=== PATIENT | male | born 1990 | race African-American/Black ===

== ENCOUNTER 2016-12-03 20:25 | Inpatient (IN) | payer OTHER, MEDICAID ==
[~2016-12-03] VITALS: Ht 180.3 cm; Wt 82.1 kg
[~2016-12-03 20:25] MED LIST: DOXY100T2 PO; FOLI1TAB18 PO; HYDR500C2 PO; IBUP-1827 PO; MUPI22OI2 NASAL; OXYC20TA4 PO
[2016-12-03 21:04] VITALS: BP 128/77; PULSE 102; RESP 18; O2SAT 98
[2016-12-03] MEDS ORDERED: Alum-Mag Hydrox-Simeth 30 mL Suspension PO PRN (21:40)
[2016-12-03] MEDS ORDERED: Polyethylene Glycol (PEG) 17 Gm Powder PO PRN (21:40)
[2016-12-03] MEDS ORDERED: HYDROmorphone 1 mg/mL Inj IVPUSH PRN (21:40)
[2016-12-03] MEDS ORDERED: Ondansetron 2 mg/mL 2 mL Inj IVPUSH PRN (21:40)
[2016-12-03] MEDS: HYDROmorphone PCA 0.2 mg/mL 30 mL Inj IV PRN (22:20)
[2016-12-03] MEDS: 0.9% Sodium Chloride 1,000 ML IV SCH (22:24)
--- NOTE | 2016-12-03 22:24 | PCM.HPMED ---
Subjective Date of Service Dec 03, 2016 Primary Provider: Admitting Physician: Jorge L Baca MD Primary Care Physician: Shyla Attending Physician: Jorge L Baca MD Chief Complaint: Bilaterally leg pain History of Present Illness: 26-year-old male with a history of sickle cell anemia and polysubstance abuse including IV drug abuse presented to [facility] emergency department due to ongoing bilateral upper leg pain and left foot numbness for the last 2-3 days. He states that the numbness began shortly after the upper leg pain, and he soon developed lower leg pain bilaterally with cyanosis of his toes bilaterally. Patient did not try to treat his pain at home. He states that he was recently using methamphetamines prior to the pain, however, he is unable to identify exactly when he last used. He states that he no longer uses IV heroin. Patient has history of multiple admissions to both [facility] and [facility] with his last admission at [facility] in August 2016 for sickle cell crisis. At this time the patient endorses abdominal pain, specifically in the left upper quadrant, but also diffusely on palpation; denies any chest pain, cough, chills , nausea, vomiting, fever, diarrhea, hematemesis, hematochezia, headache, blurry vision, or other neurological symptoms except as already discussed. Patient states that he was supposed to have a splenectomy some time ago but has never had the procedure. Patient states that on prior admissions he has been given Dilaudid and Benadryl to control the pain. [place] [facility] [place] was given 2 L of normal saline, Dilaudid 5 mg, morphine IV 4 mg. Labs obtained at [facility] show white count of 9.3, hemoglobin of 9.0, hematocrit 24.5, platelets of 294, 61% neutrophils, reticulocyte count of 205, with a 41% immature reticular fraction. CMP reveals a sodium of 142, potassium of 3.8, chloride of 107, bicarbonate of 30, BUNs of 6, creatinine of 0.83, elevated AST at 42, a LT normal at 37, glucose of 158. Lactic was drawn but not reported Review of Systems: Complete review of systems performed. Pertinent positives and negatives per history of present illness. All other systems reviewed and are negative Allergies Coded Allergies: No Known Allergies (Unverified , 12/03/16) Home Medications Taken from transfer file from [facility]: Hydroxyurea 500 mg capsule twice a day Ibuprofen 600 mg every 6 Oxycodone 5 mg immediate release tablet: 30 mg by mouth every 4 as needed for pain PMH 1. Sickle cell anemia. 2. Polysubstance abuse including methamphetamines, cocaine, and historically heroin. 3. ADHD. 4. Chronic lower back pain. Surgical History Finger amputation Retinal detachment surgery Family History Patient is adopted Social History Hx Alcohol Use: Yes Hx Substance Use: Yes (tox screen positive for meth/cocaine) Hx Tobacco Use: Yes Smoking Status: Current Every Day Smoker (1 ppd for 10 years), Never Smoker Living Arrangement: with Family Exam Vital Signs Vital Sign - Last Date Time Temp Pulse Resp B/P Pulse Ox O2 Delivery O2 Flow Rate FiO2 12/03/16 21:04 37.3 102 18 128/77 98 Nasal Cannula 2.00 Exam General: Mild to moderate distress, having difficulty focusing but able to carry on conversation HEENT: Mild icterus sclera, PERRLA, EOMI, neck is supple Cardio: tachycardic around 120 bpm, no murmurs rubs or gallops noted Respiratory: Clear to auscultation bilaterally no wheezes rhonchi or crackles Abdomen: Diffuse abdominal tenderness worse in the left upper quadrant with notable splenomegaly to the midline; positive bowel sounds; guarding noted; no rebound tenderness noted Extremities: Toes are mildly cyanotic; numerous small ulcers bilaterally with right mildly greater than left; sensation decreased on the right plantar surface , no numbness noted on the left plantar surface; patient missing his right ring finger post amputation Neuro: Numbness on the right plantar surface greater than left plantar surface, sensation intact everywhere else, cranial nerves II through XII are intact, reflexes not elicited, Babinski negative Psych: Patient is notably anxious Skin: numerous tattoos, and ulcerations on the lower extremities, do not appear to deep and are mostly healed Lab and Diagnostics Labs As noted in history of present illness Assessment & Plan 26-year-old with repeated sickle cell crisis with frequent presentation to [facility] for treatment. Patient presents now with new bilateral lower extremity pain and some numbness with cyanosis of his toes. #1 acute sickle cell crisis; present on admission; ongoing -Patient presents with bilateral lower extremity pain consistent with prior episodes of sickle cell crisis; no evidence of acute chest syndrome; cyanosis is noted bilaterally in toes -Nothing to suggest ongoing infection; event seems to have started with the use of methamphetamine -Patient already received 2 L normal saline boluses at [facility], as well as 5 mg of Dilaudid, and 4 mg of morphine, patient continues to have pain -Patient has history of IV drug abuse including heroin and is not opioid antoinette; recent use of methamphetamine and marijuana but denies cocaine -2 L normal saline bolus on arrival to [facility] -We will continue normal saline at 125 mL per hour -Dilaudid 1-2 mg every 30 minutes until pain is controlled; once controlled will transfer patient to Dilaudid SOLUTION CONSULTANT -Benadryl 25 mg IV once -We will continue to follow CBC and CMP as well as a pro-calcitonin, lactic acid , LDH -CXR #2 acute encephalopathy, present on admission; ongoing -Patient has severe agitation from the pain he is experiencing -If agitation is not solved by increased opioid administration will consider using Ativan or Haldol #3 chronic 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; present on admission; ongoing -Patient has chronic history of splenomegaly from his sickle cell with reports of possible resection in the future -Seems to be stable at home, however his spleen is grossly enlarged to the midline and 3 cm above the umbilicus -There is no thrombocytopenia on admission, we will continue to follow #4 bilateral feet numbness present on admission; ongoing -Likely secondary to acute occlusive vascular disease due to sickle cell crisis , patient's toes are also cyanotic -No other neurological symptoms to suggest stroke, with Babinski negative, patient moving all extremities -We will continue to monitor, if additional neurological symptoms develop we will consider CT or MRI of the brain -Also suggest on discharge of the patient be given a prescription for alpha lipoic acid to take daily at home Disposition: Patient is being admitted to general medical floor with expected length of stay greater than to minimize due to severity of presentation, duration of treatment, risk of adverse effects Pain Evaluation: Pain not Controlled GI Prophylaxis: H2 rashel Resuscitation Status: CPR: Attempt Resuscitation Attending Statement The patient was seen and examined together with Dr. Pace on 12/03/16 and I agree with the history, exam and plan as outlined in the note above. Eric Pace DO Dec 03, 2016 22:24 Jorge L Baca MD Dec 03, 2016 23:58
[2016-12-03 22:36] VITALS: RESP 16
[2016-12-03 23:46] LABS: APPEARANCE,URINE CLEAR (CLEAR,HAZY); COLOR,URINE YELLOW (YELLOW); OCCULT BLOOD,URINE NEGATIVE (NEGATIVE)
[2016-12-03 23:47] LABS: UROBILINOGEN,URINE NORMAL (NORMAL)
[2016-12-04] VITALS (7 sets, daily range): BP systolic 125–142; BP diastolic 75–90; PULSE 92–114; RESP 18–20; O2SAT 93–98
--- NOTE | 2016-12-04 | NUR ---
Admit note: Pt alert and oriented x3, difficulty holding attentions and following a conversation without nodding off to sleep. Pain reported at a 10/10 to feet and legs. Toes discolored bilateral, with right toes greater than left. Fluid bolus' ordered, IV fluid and COLLATERAL CLERK for pain control. Oriented to room and call light.
[2016-12-04] MEDS: 0.9% Sodium Chloride 1,000 ML IV SCH ×5 (00:06→20:42)
[2016-12-04 05:43] LABS: BASOPHILS % (AUTO) 0.5 % (0-3); EOSINOPHILS % (AUTO) 7.9 % (0-5); MONOCYTES % (AUTO) 16.8 % (4-12); Mean Corpuscular Hemoglobin 29.2 pg (27.0-35.0); Mean Corpuscular Volume 83.3 fL (81-100); Platelet Count 329 bil/L (150-400)
[2016-12-04 05:53] LABS: TROPONIN T 0.01 ug/L (0.0-0.011)
--- NOTE | 2016-12-04 09:33 | DRSVH ---
PROCEDURE: X-RAY CHEST ONE VIEW, PORTABLE ([id number]) INDICATIONS: sickle cell TECHNIQUE: One view of the chest was acquired. COMPARISON: [facility], CR, XR CHEST 1VW (PORTABLE), 09/08/2016, 5:26. FINDINGS: Surgical changes and devices: None. Lungs and pleura: No pleural effusions or pneumothorax. Lung volumes are low and air space opacity involves the peripheral right lung base. Mediastinum: Mediastinal contours appear normal. Heart size is normal. Bones and chest wall: No suspicious bony lesions. Overlying soft tissues appear unremarkable. IMPRESSION: Right basilar atelectasis versus aspiration or pneumonia. Correlate clinically. Dictated by: Navid BOWMAN Interpreted: Emily Ray MD on 12/04/2016 at 9:33 Transcribed by: SERGIO on 12/04/2016 at 9:33 Approved by: Emily Ray M.D. on 12/04/2016 at 13:37
[2016-12-04] MEDS ORDERED: diphenhydrAMINE 25 mg Capsule PO PRN (10:40)
--- NOTE | 2016-12-04 15:24 | NUR ---
Social Work: Attempt CD Assessment Data & Assessment: EMR Reviewed. Chief Station Engineer met with patient at bedside and started CD assessment. Patient agreed to completing the assessment, but after the first question patient was in and out of sleep and not answering questions. Patient reported that he uses heroin. SW will attempt to complete CD assessment tomorrow. SW will continue to follow. \ Plan: SW will attempt to complete CD Assessment tomorrow. SW will continue to follow. Phyllis Mayo LMSW, KIM
[2016-12-04] MEDS: HYDROmorphone PCA 0.2 mg/mL 30 mL Inj IV PRN (15:42)
--- NOTE | 2016-12-04 17:35 | NUR ---
Fever Patient had a 38.6 fever at 1441. Notified and he ordered 650mg Tylenol. Gave Tylenol at 1507. Addendum: 12/04/16 at 1737 by SANDRA ALMAGUER RN Rechecked temp at 1723 - 38.0
--- NOTE | 2016-12-04 18:28 | PCM.PNMED ---
Subjective Date of Service Dec 04, 2016 Subjective Patient report pain over his bony legs today. Requests to increase hydromorphone and Benadryl IV. Benadryl oral does not work. Exam Vital Signs Vital Sign - Last Date Time Temp Pulse Resp B/P Pulse Ox O2 Delivery O2 Flow Rate FiO2 12/04/16 14:41 38.6 92 18 125/80 94 Room Air 12/03/16 21:04 2.00 Intake and Output 12/03/16 12/03/16 12/04/16 Cumulative From/Thru 15:00 23:00 07:00 12/03/16 21:04 - 12/04/16 06:12 Intake Total 3242 ml 3242 ml Output Total 1375 ml 1375 ml Balance 1867 ml 1867 ml Intake Oral 1318 ml 1318 ml IV Total 1924 ml 1924 ml Output Urine Total 1375 ml 1375 ml # Bowel Movements 2 2 Exam Gen: Drowsy and in pain HEENT: PERRLA. Sclerae anicteric, moist conjunctivae, and no lid lag. Neck: Supple, no JVD Cardio: Tachycardic, regular rate and rhythm, no murmur rub or gallop Pulm: Bilateral air sound, no wheezes, crackles, or rhonchi Abd: Positive bowel sounds, soft, nontender, splenomegaly Extremities: No clubbing, cyanosis, edema, or lymphadenopathy appreciated. Skin: Normal temperature, turgor, and texture; no rash, ulcers, or subcutaneous nodules appreciated. Neuro: Cranial nerves grossly intact. Normal muscle strength, tone, and bulk. Reflexes, coordination, and sensory function within normal limits. No known gait impairment. Psyc: Normal mood and affect. Alert and oriented to person, place, and time. IVs and Medications IV Fluids NS 150cc/h Medications Reviewed: Medications were reviewed in detail Lab and Diagnostics Result Diagram: 12/04/1650912/04/16509 Assessment & Plan 26-year-old with repeated sickle cell crisis with frequent presentation to [facility] for treatment. Patient presents now with new bilateral lower extremity pain and some numbness with cyanosis of his toes. High fever, not present on admission, active - Possible bacteremia in the setting of enlarged spleen. - Ordered blood culture, viral Respiratory PCR, and procalcitonin. - Started broadspec ceftriaxone to over encapsulated bacteria. Acute sickle cell crisis; present on admission; ongoing - Had multiple admission for sickle cells crisis in the past. [place] [facility] - Inciting factor likely habitual methamphetamine use. Difficult to start IVs. - No symptoms of worsening anemia, renal insufficiency, or respiratory distress. Cont to monitor - Hydration with NS 150cc/h - Pain control: Hydromorphone AUTOMATIC PATTERN EDGER. Hydromorphone 1-2mg IV push Q2h PRN for breakthrough. Benadryl 25mg Q6h to augment pain meds. Sickle cell anemia, present on admission, active - Initial presentation Hgb/Hct 8.9/25.4, RDW 16.8, and hyperbilirubinemic. Normal platelets counts though. - Will transfuse of Hgb <6.0 and consider hydroxyurea. Acute encephalopathy, present on admission; ongoing - Patient has severe agitation from the pain he is experiencing - If agitation is not solved by increased opioid administration will consider using Ativan or Haldol Hepatitis C, present on admission, on going. - Uncertain of source. Though possible 2nd to IV drug use, past blood transfusion - No geotype on records - Will need to be follow-up outpatient. Polydrug abuse, present on admission, active - Past hx of heroin abuse, tested positive for amphetamines on this admission - Patient had displayed drug seeking behavior. Pain management strategy will be conservative. - Social work referral. Bilateral feet numbness present on admission; ongoing - Presentation likely secondary to acute occlusive vascular disease due to sickle cell crisis. Patient's toes are also cyanotic - No other neurological symptoms to suggest stroke, with Babinski negative, patient moving all extremities - Will CT or MRI of the brain with neurologic changes. - Consider adding gabapentin, Alpha lipoic acid, and vitamin D out patient for neuropathic pain Chronic 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; present on admission; ongoing - Patient has chronic history of splenomegaly from his sickle cell with reports of possible resection in the future - Seems to be stable at home, however his spleen is grossly enlarged to the midline and 3 cm above the umbilicus - There is no thrombocytopenia on admission, we will continue to follow Acetaminophen PRN for fever Antiemetics PRN Bowel regiment PRN Disposition: Patient will likely be here for 2-3 days pending the resolution of sickle cell crisis. We will continue to hydrate and treat underlying pain. GI Prophylaxis: H2 rashel VTE Prophylaxis: Sub-Q Heparin (Unfractionated) (SCD are hypercoag. ) Resuscitation Status: CPR: Attempt Resuscitation Time spent 25 minutes Attending Statement I have seen and evaluated patient at bedside and directly supervised in the care provided by resident physician. I agree with above documentation. Jeremy Zaragoza DO Dec 04, 2016 18:28 Arnoldo Flores DO Dec 05, 2016 13:37
[2016-12-04] MEDS ORDERED: cefTRIAXone Inj 2,000 MG in IV Premix 1 EACH IV SCH (18:30)
[2016-12-04] MEDS: HYDROmorphone 1 mg/mL Inj IVPUSH PRN (20:33)
[2016-12-04] MEDS: Heparin 5,000 Unit/mL Inj SUBQ SCH (23:48)
[2016-12-04] MEDS: cefTRIAXone Inj 2,000 MG in Dextrose 5% Minibag Plus 50 ML IV SCH (23:59)
[2016-12-05] VITALS (7 sets, daily range): BP systolic 121–145; BP diastolic 78–92; PULSE 106–118; RESP 16–20; O2SAT 93–98
[2016-12-05] MEDS: HYDROmorphone 1 mg/mL Inj IVPUSH PRN ×6 (02:14→19:55)
--- NOTE | 2016-12-05 03:32 | NUR ---
Pain, Cold sx: Pt only used 7 doses of CONSTRUCTION PROJECT MANAGER Dilaudid the first 5-6 hours of the shift for leg/foot pain, equaling 1.4 mgs. Requesting IV Benadryl and IV Dilaudid for breakthrough pain. Pt has been able to sleep for short periods of time, wakes up with nasal congestion, blowing nose, stating he has a cold. When awake, he requests additional meds but is sleeping sound again before staff leaves the room.
[2016-12-05] MEDS: 0.9% Sodium Chloride 1,000 ML IV SCH ×4 (03:47→22:50)
[2016-12-05] MEDS: HYDROmorphone PCA 0.2 mg/mL 30 mL Inj IV PRN ×2 (06:32→18:18)
[2016-12-05 07:34] LABS: Mean Corpuscular Hemoglobin 29.3 pg (27.0-35.0); Mean Corpuscular Volume 83.4 fL (81-100); Platelet Count 372 bil/L (150-400)
[2016-12-05 08:09] LABS: BASOPHILS % (AUTO) 1 % (0-3); EOSINOPHILS % (AUTO) 6 % (0-5); MONOCYTES % (AUTO) 12 % (4-12); NEUTROPHILS % (AUTO) 54 % (40-74)
[2016-12-05] MEDS: Heparin 5,000 Unit/mL Inj SUBQ SCH ×2 (08:58→16:41)
--- NOTE | 2016-12-05 13:30 | NUR ---
Pain Pt requesting "dose of pain medication for breakthru pain. Pain level 6-7/10 on pain scale, pt is conversing with female friend in rm. No obvious signs of distress. BRANCH EMPLOYMENT COORDINATOR activity in previous hour > requests = 3, denied = 0, partial = 0. 0.3 mg bolus given via BRANCH EMPLOYMENT COORDINATOR. Pt sts "I want a dose of pain medication for breakthrough pain" This RN educated pt regarding BRANCH EMPLOYMENT COORDINATOR use with the additional bolus option. Pt sts "If the doctor ordered it, then I want it" 1 mg of Dilaudid given as ordered and pt request. Will continue to monitor, call light with in reach.
--- NOTE | 2016-12-05 14:24 | PCM.PNMED ---
Subjective Date of Service Dec 05, 2016 Subjective Overnight, patient consistently requests for hydromorphone Q2H for breakthrough pain, rather then using the COMMUNITY ASSOCIATION MANAGER. Today, he spike temperature of 38.5C, tachycardic. Though, pt has hx of tachycardia. Pyrexia was noted yesterday afternoon as well. Blood cultures and antibiotics were initiated. Patient complaints of severe pain, chest and legs. Legs hurts more than chest. Leg pain R> L. A continuous "charley horse". At the same time, he states numbness b/l lower extremities. Patient reports walking to bathroom without family and divorce legal assistant. He favors the Left food due to right foot pain. Patient denies any exertional CP or SOB. Exam Vital Signs Vital Sign - Last Date Time Temp Pulse Resp B/P Pulse Ox O2 Delivery O2 Flow Rate FiO2 12/05/16 10:29 37.8 109 20 121/78 96 Room Air 12/03/16 21:04 2.00 Intake and Output 12/04/16 12/04/16 12/05/16 Cumulative From/Thru 15:00 23:00 07:00 12/03/16 21:04 - 12/05/16 06:35 Intake Total 4247 ml 4159 ml 37847 ml Output Total 2750 ml 3050 ml 7175 ml Balance 1497 ml 1109 ml 4473 ml Intake Oral 2800 ml 2636 ml 6754 ml IV Total 1447 ml 1523 ml 4894 ml Output Urine Total 2750 ml 3050 ml 7175 ml # Bowel Movements 2 Exam Gen: Resting comfortably. HEENT: PERRLA. Sclerae icteric, moist conjunctivae, and no lid lag. Neck: Supple, no JVD Cardio: Tachycardic, regular rate and rhythm, no murmur rub or gallop Pulm: Bilateral air sound, no wheezes, crackles, or rhonchi Abd: Positive bowel sounds, soft, nontender, splenomegaly Extremities: No clubbing, cyanosis, edema, or lymphadenopathy appreciated. capillary refill <2sec b/l foot, +2 b/l pedal pulses. Skin: Normal temperature, bollae right toes. mild erythema. Neuro: Cranial nerves grossly intact. Normal muscle strength, tone, and bulk. Reflexes, coordination, and sensory function within normal limits. No known gait impairment. Psyc: Normal mood and affect. Alert and oriented to person, place, and time. Right 4th finger missing. IVs and Medications Medications Reviewed: Medications were reviewed in detail Lab and Diagnostics Result Diagram: 12/05/1664712/05/16647 Assessment & Plan 26-year-old with repeated sickle cell crisis with frequent presentation to [facility] for treatment. Patient presents now with new bilateral lower extremity pain and some numbness with cyanosis of his toes. High fever, not present on admission, active - Possible bacteremia in the setting of enlarged spleen. - Ordered blood culture, viral Respiratory PCR, and procalcitonin. - Started broadspec ceftriaxone to over encapsulated bacteria. - Consult ID Dr. [email or web address] for further evaluation. Difficult to determine whether fever is infectious related. Acute sickle cell crisis; present on admission; ongoing - Had multiple admission for sickle cells crisis in the past. A transfer patient from [facility] [place]. - Inciting factor likely habitual methamphetamine use. Difficult to start IVs. - No symptoms of worsening anemia, renal insufficiency, or respiratory distress. Cont to monitor - Hydration with NS 150cc/h - Pain control: Hydromorphone COMMUNITY ASSOCIATION MANAGER. Hydromorphone 1-2mg IV push Q4h PRN for breakthrough. Benadryl 25-50mg Q6h to augment pain meds. Sickle cell anemia, present on admission, active - Initial presentation Hgb/Hct 8.9/25.4, RDW 16.8, and hyperbilirubinemic. Normal platelets counts though. - Will transfuse of Hgb <6.0 and consider hydroxyurea. Acute encephalopathy, present on admission; ongoing - Patient has severe agitation from the pain he is experiencing - If agitation is not solved by increased opioid administration will consider using Ativan or Haldol Hepatitis C, Genotype 1a, present on admission, on going. - Uncertain of source. Though possible 2nd to IV drug use, past blood transfusion - Will need to be follow-up outpatient. Polydrug abuse, present on admission, active - Past hx of heroin abuse, tested positive for amphetamines on this admission - Patient had displayed drug seeking behavior. Pain management strategy will be conservative. - Social work referral. Bilateral feet numbness present on admission; ongoing - Presentation likely secondary to acute occlusive vascular disease due to sickle cell crisis. Patient's toes are also cyanotic - No other neurological symptoms to suggest stroke, with Babinski negative, patient moving all extremities - Will CT or MRI of the brain with neurologic changes. - Consider adding gabapentin, Alpha lipoic acid, and vitamin D out patient for neuropathic pain Chronic 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; present on admission; ongoing - Patient has chronic history of splenomegaly from his sickle cell with reports of possible resection in the future - Seems to be stable at home, however his spleen is grossly enlarged to the midline and 3 cm above the umbilicus - There is no thrombocytopenia on admission, we will continue to follow Acetaminophen PRN for fever Antiemetics PRN Bowel regiment PRN Disposition: Patient will likely be here for 1-2 days pending the resolution of sickle cell crisis. We will continue to hydrate and treat underlying pain. GI Prophylaxis: H2 rashel VTE Prophylaxis: Sub-Q Heparin (Unfractionated) (SCD are hypercoag. ) Resuscitation Status: CPR: Attempt Resuscitation Time spent 25 minutes Attending Statement I have seen and evaluated patient at bedside in addition to directly supervising care provided by resident physician. I agree with above documentation. Jeremy Zaragoza DO Dec 05, 2016 14:24 Arnoldo Flores DO Dec 06, 2016 08:07
--- NOTE | 2016-12-05 18:00 | NUR ---
Febrile GENERAL FOREMAN informed this RN of fever 101(+). MD aware, Tylenol given. Recheck of temp 98.8 F.
--- NOTE | 2016-12-05 18:18 | CONS ---
[address] [address] CONSULTATION REPORT PATIENT: MAYE MENDEZ : 1990 MR#: [id number] ADMIT: 12/03/2016 JOB ID: [id number] DATE OF SERVICE: 12/05/[address] Zaragoza for this timely consult. REASON FOR CONSULTATION: Sickle cell crisis with fever. HISTORY OF PRESENT ILLNESS: The patient is a 26-year-old gentleman known to me from an earlier admission who has sickle cell and was admitted to this hospital two days ago on December 03 complaining of leg and foot pain and numbness for a couple weeks. He states that the foot numbness is worse on the left but now involves both feet and the combination of the numbness and pain in the feet and legs has left him basically unable to walk secondary to pain. Unlike prior admissions, the patient has no significant pulmonary or GI symptoms at this time though we did have a bit of pain in the left upper quadrant, he reported to the emergency department physicians, but today basically states that all his symptoms are confined to the legs and feet bilaterally. He notes that he has had fevers though no chills or sweats. He denies specifically any sore throat, cough, shortness of breath or chest pain. No significant nausea, vomiting or diarrhea is noted. PAST MEDICAL HISTORY: 1. Sickle cell anemia with multiple admissions. 2. Polysubstance abuse including sometimes injection of heroin as well as methamphetamine and cocaine. He reports today he has not injected in a long time though it is hard to quantitate what that means. 3. ADHD. 4. Chronic back pain. HOME MEDICATIONS: Hydroxyurea as well as nonsteroidals and oxycodone. SOCIAL HISTORY: The patient denies drinking alcohol today. He said he is an every day smoker who is currently living with his family in the [facility]. He states he has not used any intravenous narcotics or other drugs for a long period. FAMILY HISTORY: This patient is adopted so we do not have a good family history. REVIEW OF SYSTEMS: At this point, the patient states he is having no headache and denies any visual complaints. He is having no sores in the mouth or trouble swallowing. No stiff neck. No cough, shortness of breath or any chest pain. He has no symptoms at all in his upper extremities. No nausea, vomiting, diarrhea, or dysuria. No pelvic pain or symptoms. He notes that the pain in the toes bilaterally has been very severe and has been associated with a simultaneous occurrence of both pain and numbness in the feet. He states that when his feet are grabbed or examined he feels essentially nothing and that this all started just within the past few days. This feeling also extends to some degree further upper into the legs bilaterally. He does not have any of the more typical bone type pain in his lower or upper extremities nor in his back. No nausea, vomiting or diarrhea. No dysuria, urgency, or frequency and no skin rashes noted. LABORATORIES: Include white count 11,100, hematocrit 27, platelet count 372,000, differential white blood count is unremarkable. He does have 6% eosinophils, however. Creatinine is 0.84. LFTs basically normal except for bilirubin 1.4, slightly elevated. Albumin 3.3. Procalcitonin is 0 on the first measurement. Urinalysis with 0-5 white cells. Methamphetamine screen is positive. No current serologies though when he was here in August we had negative HIV and a hepatitis C which was positive for genotype 1A with viral load 3000. Micro studies include negative blood cultures from May and August, a nasal screen is positive for MRSA and that was back in August. Herpes culture of the lip was negative in August. More recently, we have negative blood cultures from yesterday, the , and respiratory viral PCR panel which was negative from yesterday. A MRSA screen is pending. X-rays include a chest x-ray done yesterday which shows right basilar atelectasis versus aspiration or pneumonia. This was reviewed on the view screen and it is a fairly subtle finding. IMPRESSION: This unfortunate gentleman presents once again with a sickle cell crisis. This one is a bit different from his prior crises as it seems to involve primarily his toes on both feet and sounds almost like more of an acute neuropathy than typical sickle cell crisis. He also has some pain in the soft tissues of the legs bilaterally. There is no upper extremity or back joint involvement by his report and no overt pulmonary, gastrointestinal or genitourinary symptoms. His fevers have been as high as 38.6 since admission and this, of course, demands are attention though it is possible these fevers are strictly due to sickle cell in and of itself. The source of the fever could be secondary to underlying sickle cell itself though the possibility of an occult bacteremia exists as well. The patient's chest x-ray does not look as if he has any significant underlying pulmonary infection. RECOMMENDATIONS: 1. Even without a focal source of infection, I agree with the plan to start the patient on ceftriaxone. 2. We await the blood cultures which are pending in this case. 3. Will await the MRSA screen which is also pending in this case. 4. Will continue to closely follow the patient with you but, at this time, I see no indication to broaden or switch the ceftriaxone therapy while we await additional microbiologic and clinical data.
[2016-12-05] MEDS: cefTRIAXone Inj 2,000 MG in Dextrose 5% Minibag Plus 50 ML IV SCH (22:50)
[2016-12-06] VITALS (7 sets, daily range): BP systolic 126–142; BP diastolic 69–83; PULSE 108–114; RESP 16–19; O2SAT 92–97
[2016-12-06] MEDS: Heparin 5,000 Unit/mL Inj SUBQ SCH ×3 (01:15→17:30)
[2016-12-06] MEDS: HYDROmorphone 1 mg/mL Inj IVPUSH PRN ×6 (01:16→23:31)
--- NOTE | 2016-12-06 04:24 | NUR ---
Pain: Pt is using the CANE FLUME CHUTE OPERATOR slightly more tonight; as at times the night before was only pressing it once an hour. IV Dilaudid ordered every 4 hours, has received it twice thus far this shift. One CANE FLUME CHUTE OPERATOR bolus administered when pt requested breakthrough medication and it was not time. Also receiving IV Benadryl every 6 hours as requested. Pt has been able to sleep a fair amount of time tonight.
[2016-12-06] MEDS: 0.9% Sodium Chloride 1,000 ML IV SCH ×2 (05:03→19:54)
[2016-12-06] MEDS: HYDROmorphone PCA 0.2 mg/mL 30 mL Inj IV PRN ×2 (06:32→15:31)
[2016-12-06 07:03] LABS: BASOPHILS % (AUTO) 0.6 % (0-3); EOSINOPHILS % (AUTO) 7.2 % (0-5); MONOCYTES % (AUTO) 20.7 % (4-12); Mean Corpuscular Hemoglobin 29.2 pg (27.0-35.0); Mean Corpuscular Volume 82.2 fL (81-100); NEUTROPHILS % (AUTO) 44.5 % (40-74); Platelet Count 395 bil/L (150-400)
--- NOTE | 2016-12-06 10:50 | PROG NOTE ---
[address] [address] PROGRESS NOTE PATIENT: MAYE MENDEZ : 1990 MR#: [id number] ADMIT: 12/03/2016 JOB ID: [id number] DATE: 12/06/2016 INFECTIOUS DISEASE FOLLOWUP NOTE: REASON FOR FOLLOWUP: Sickle cell crisis, with possible associated infection. INTERVAL HISTORY: Overnight, the patient has had some fevers, which he has noticed, including a significant temperature spike late yesterday afternoon. He has not had chills noted this morning. He denies coughing or shortness of breath. No chest pain. No GI symptoms. His main problem is pain in his toes, especially those on his right foot. In addition, he notes that his toes feel sort of simultaneously numb and painful on the right foot, and this is a new thing which has not occurred in prior episodes of sickle cell crisis for him. He believes he needs more pain medicines. PHYSICAL EXAMINATION: Reveals an uncomfortable young black gentleman in no acute distress, lying in his bed. Temperature 37.5 but he was 38.5 late yesterday afternoon. Pulse 108, respiratory rate 18, blood pressure 126/83, saturating well on room air. Examination of the head reveals no evidence of trauma. The oral cavity is benign. The lungs are relatively clear. Cardiac tones without murmur. The abdomen is soft and nontender. The hands do not show any evidence of change though, of course, he is missing one ring finger from a prior infection. Otherwise, his nine fingers look benign. The toes on the right foot especially the 2nd and 3rd toes are dark and the sensation that the skin is no longer firmly attached to the 2nd and 3rd toes. They are painful to palpation, especially on the dorsal aspect of those two toes. All the toes on the right foot the patient notes are somewhat reduced in terms of sensation until one actually squeezes on them which is then quite painful. The left foot is not so dramatic, as he seems to have intact sensation there, and there is less pain. LABORATORIES: Include white count 10,900. Creatinine 0.72. LFT normal. Procalcitonin 0. Urinalysis without pyuria. Toxicology was positive for methamphetamine. QuantiFERON Gold pending. Respiratory viral PCR negative. Blood cultures negative. IMAGING: Includes the chest x-ray done a couple of days ago which showed possible right basilar atelectasis. IMPRESSION: I continue to be unconvinced that the patient has any significant bacterial process. He does have fevers in the setting of sickle cell which is always worrisome, and I think it is reasonable to continue some fairly broad-spectrum antibiotics while we await his blood cultures and clinical developments. The sickle cell, in and of itself, can certainly produce fevers, and I suspect that is what is going on here. The appearance of his right toes is quite bizarre and different from what he has had on prior episodes. I suspect this is a direct manifestation of occlusive disease rather than an infection, and I see no evidence for superinfection of those toes at this point. RECOMMENDATIONS: 1. Will continue with ceftriaxone for now. 2. We await the pending cultures. 3. MRSA screen has been ordered. I thought that had been ordered yesterday but it has not been done, so recheck today. Note that the patient was MRSA positive in August, so by our hospital rules he should be in MRSA isolation until we have a negative back.
--- NOTE | 2016-12-06 12:41 | PCM.PNMED ---
Subjective Date of Service Dec 06, 2016 Subjective No overnight events. No fever. Though patients still requesting Dilaudid 2mg IV and forgo the MUSIC PROMOTER. Today, patient continue complaint of lower legs pain, fixated on his Right foot. He denies any SOB. Exam Vital Signs Vital Sign - Last Date Time Temp Pulse Resp B/P Pulse Ox O2 Delivery O2 Flow Rate FiO2 12/06/16 05:14 37.5 108 18 126/83 97 Room Air 12/03/16 21:04 2.00 Intake and Output 12/05/16 12/05/16 12/06/16 Cumulative From/Thru 15:00 23:00 07:00 12/03/16 21:04 - 12/06/16 06:35 Intake Total 2769 ml 4979 ml 43538 ml Output Total 1350 ml 3100 ml 99791 ml Balance 1419 ml 1879 ml 7771 ml Intake Oral 1070 ml 3236 ml 46620 ml IV Total 1699 ml 1743 ml 8336 ml Output Urine Total 1350 ml 3100 ml 38332 ml # Bowel Movements 2 Exam Gen: Resting comfortably. HEENT: PERRLA. Sclerae icteric, moist conjunctivae, and no lid lag. Neck: Supple, no JVD Cardio: Tachycardic, regular rate and rhythm, no murmur rub or gallop Pulm: Bilateral air sound, no wheezes, crackles, or rhonchi Abd: Positive bowel sounds, soft, nontender, splenomegaly Extremities: No clubbing, cyanosis, edema, or lymphadenopathy appreciated. capillary refill <2sec b/l foot, +2 b/l pedal pulses. Right 4th finger missing. Skin: Normal temperature, bollae right toes. mild erythema. Neuro: Cranial nerves grossly intact. Normal muscle strength, tone, and bulk. Reflexes, coordination, and sensory function within normal limits. No known gait impairment. Psyc: Normal mood and affect. Alert and oriented to person, place, and time. IVs and Medications IV Fluids NS 100cc/hr Medications Reviewed: Medications were reviewed in detail Lab and Diagnostics Result Diagram: 12/06/1664112/06/1642 Assessment & Plan 26-year-old with repeated sickle cell crisis with frequent presentation to [facility] for treatment. Patient presents now with new bilateral lower extremity pain and some numbness with cyanosis of his toes. Fever of unknown origin, not present on admission, active - Possible bacteremia in the setting of enlarged spleen. - Ordered blood culture, viral Respiratory PCR, and procalcitonin. - Started broadspec ceftriaxone to over encapsulated bacteria. - Cabin Service Agent ID Dr. Oneal is onboard and will help direct abx managements. Difficult to determine whether fever is infectious related. Acute sickle cell crisis; present on admission; ongoing - Had multiple admission for sickle cells crisis in the past. A transfer patient from [facility] [place]. - Inciting factor likely habitual methamphetamine use. Difficult to start IVs. - No symptoms of worsening anemia, renal insufficiency, or respiratory distress. Cont to monitor - Decrease hydration with NS 100cc/h. Pt tolerates PO intake well. - Weening down opioids use. - Pain control: Hydromorphone MUSIC PROMOTER. Hydromorphone 0.5- 1mg IV push Q4h PRN for breakthrough. Benadryl 25-50mg Q6h to augment pain meds. Sickle cell anemia, present on admission, active - Initial presentation Hgb/Hct 8.9/25.4, RDW 16.8, and hyperbilirubinemic. Normal platelets counts though. - Will transfuse of Hgb <6.0 and consider hydroxyurea. Acute encephalopathy, present on admission; ongoing - Patient has severe agitation from the pain he is experiencing - If agitation is not solved by increased opioid administration will consider using Ativan or Haldol Hepatitis C, Genotype 1a, present on admission, on going. - Uncertain of source. Though possible 2nd to IV drug use, past blood transfusion - Will need to be follow-up outpatient. Polydrug abuse, present on admission, active - Past hx of heroin abuse, tested positive for amphetamines on this admission - Patient had displayed drug seeking behavior. Pain management strategy will be conservative. - Social work referral. Bilateral feet numbness present on admission; ongoing - Presentation likely secondary to acute occlusive vascular disease due to sickle cell crisis. Patient's toes are also cyanotic - No other neurological symptoms to suggest stroke, with Babinski negative, patient moving all extremities - Will CT or MRI of the brain with neurologic changes. - Consider adding gabapentin, Alpha lipoic acid, and vitamin D out patient for neuropathic pain Chronic 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; present on admission; ongoing - Patient has chronic history of splenomegaly from his sickle cell with reports of possible resection in the future - Seems to be stable at home, however his spleen is grossly enlarged to the midline and 3 cm above the umbilicus - There is no thrombocytopenia on admission, we will continue to follow Acetaminophen PRN for fever Antiemetics PRN Bowel regiment PRN Disposition: Patient will likely be here for 1-2 days pending the resolution of sickle cell crisis. We will continue to hydrate and treat underlying pain. GI Prophylaxis: H2 rashel VTE Prophylaxis: Sub-Q Heparin (Unfractionated) (SCD are hypercoag. ) Resuscitation Status: CPR: Attempt Resuscitation Time spent 20 minutes Attending Statement I have seen and examined patient at bedside in addition to directly supervising care provided by resident physician. I agree with above documentation. Jeremy Zaragoza DO Dec 06, 2016 12:41 Arnoldo Flores DO Dec 07, 2016 07:20
--- NOTE | 2016-12-06 15:20 | NUR ---
Social Work-attempted CD assessment: Data:EMR reviewed. Pt is on day 3 of hospitalization for sickle cell crisis per H&P. Pt is not medically stable, anticipate several more days. SW attempted to see pt for CD assessment, but pt sleeping soundly. SW to follow up again. SW will continue to follow. Assessment:Pt who will need CD assessment. Plan:SW to follow up with CD assessment when appropriate. SW will continue to follow. MICHAEL Chambers
--- NOTE | 2016-12-06 17:39 | NUR ---
Pain control: Patient has rated his pain level at 6-7 on 1-10 scale and he has requested PRN Dilaudid , Benadryl and Lorazepam for break through pain. Patient stated that his pain is " Tolerable " with the pain meds but the pain does not completely go away in his feet and toes. Times were written on the white board for patients next PRN doses. Patient encouraged to use his EXPEDITER SERVICE ORDER pain button. Clock brought down closer to patient so he can see the time. Patient stated that he has poor eye sight an is unable to read the clock on the wall. This helped with his ability to push the EXPEDITER SERVICE ORDER button on the 10 minute malvin.
[2016-12-06] MEDS: cefTRIAXone Inj 2,000 MG in Dextrose 5% Minibag Plus 50 ML IV SCH (23:51)
[2016-12-07] MEDS: Heparin 5,000 Unit/mL Inj SUBQ SCH ×3 (00:14→16:31)
[2016-12-07] MEDS: HYDROmorphone 1 mg/mL Inj IVPUSH PRN ×2 (03:30→07:47)
[2016-12-07] MEDS: HYDROmorphone PCA 0.2 mg/mL 30 mL Inj IV PRN (03:46)
[2016-12-07] MEDS: 0.9% Sodium Chloride 1,000 ML IV SCH (03:50)
[2016-12-07 05:17] VITALS: BP 118/71; PULSE 103; RESP 18; O2SAT 98
[2016-12-07 07:53] LABS: BASOPHILS % (AUTO) 0.9 % (0-3); EOSINOPHILS % (AUTO) 7.7 % (0-5); MONOCYTES % (AUTO) 17.3 % (4-12); Mean Corpuscular Hemoglobin 28.7 pg (27.0-35.0); Mean Corpuscular Volume 80.6 fL (81-100); NEUTROPHILS % (AUTO) 40.7 % (40-74); Platelet Count 426 bil/L (150-400)
[2016-12-07] MEDS ORDERED: hydrOXYzine Pamoate 25 mg Capsule PO PRN (10:55)
--- NOTE | 2016-12-07 11:00 | PCM.PNMED ---
Subjective Date of Service Dec 07, 2016 Subjective Unremarkable overnight. Overnight SLING OPERATOR with over 30 denies Today patient complains of right toe hurts. Pain is 7 out of 10. Patient however calmly eats his breakfast, denies any nausea, vomiting, diaphoretic. Patient agrees to discontinue SLING OPERATOR. But state "I want oxycodone 30mg every 6 hours with Benadryl IV because it helps me sleep away the pain." Exam Vital Signs Vital Sign - Last Date Time Temp Pulse Resp B/P Pulse Ox O2 Delivery O2 Flow Rate FiO2 12/07/16 05:17 36.8 103 18 118/71 98 Room Air 12/03/16 21:04 2.00 Intake and Output 12/06/16 12/06/16 12/07/16 Cumulative From/Thru 15:00 23:00 07:00 12/03/16 21:04 - 12/07/16 06:46 Intake Total 2865 ml 2723 ml 96170 ml Output Total 2650 ml 2525 ml 75604 ml Balance 215 ml 198 ml 8184 ml Intake Oral 1490 ml 1436 ml 45325 ml IV Total 1375 ml 1287 ml 96073 ml Output Urine Total 2650 ml 2525 ml 92806 ml # Voids 5 5 # Bowel Movements 2 Exam Gen: Resting comfortably. HEENT: PERRLA. Sclerae icteric, moist conjunctivae, and no lid lag. Neck: Supple, no JVD Cardio: Tachycardic, regular rate and rhythm, no murmur rub or gallop Pulm: Bilateral air sound, no wheezes, crackles, or rhonchi Abd: Positive bowel sounds, soft, nontender, splenomegaly Extremities: No clubbing, cyanosis, edema, or lymphadenopathy appreciated. capillary refill <2sec b/l foot, +2 b/l pedal pulses. Right 4th finger missing. Skin: Normal temperature, bullae right toes. mild erythema. Neuro: Cranial nerves grossly intact. Normal muscle strength, tone, and bulk. Reflexes, coordination, and sensory function within normal limits. No known gait impairment. Psyc: Normal mood and affect. Alert and oriented to person, place, and time. IVs and Medications Medications Reviewed: Medications were reviewed in detail Lab and Diagnostics Result Diagram: 12/06/1642 12/06/1642 X-Rays, CTs and MRIs PROCEDURE: X-RAY CHEST ONE VIEW, PORTABLE INDICATIONS: sickle cell IMPRESSION: Right basilar atelectasis versus aspiration or pneumonia. Correlate clinically. Dictated by: Navid BOWMAN Interpreted: Emily Ray MD on 12/04/2016 at 9:33 Assessment & Plan Patient is a 26-year-old male with medical history significant for repeated sickle cell crisis with frequent presentation to [facility] for treatment, polydrug abuse, and hepatitis C admitted for sickle cell crisis. Polydrug abuse, present on admission, active - Past hx of heroin abuse, tested positive for amphetamines on this admission - Patient had displayed drug seeking behavior. Pain management strategy will be conservative. - Social work referral. Acute sickle cell crisis; present on admission; resolving - Had multiple admission for sickle cells crisis in the past. A transfer patient from [facility] [place] [place]. - Inciting factor likely habitual methamphetamine use. Difficult to start IVs. - No symptoms of worsening anemia, renal insufficiency, or respiratory distress. Bilirubin trended to normal. - D/c fluids as he tolerates PO intake well - Pain control: taper down, oxycodone ER 40mg BID. Breakthrough pain: oxycodone IR 10mg Q6h PRN. Benadryl 12.5-25mg IV PRN. - D/c Dilaudid drip and lorazepam PRN Fever of unknown origin, not present on admission, resolving - Possible bacteremia in the setting of enlarged spleen. - Ordered blood culture, viral Respiratory PCR, and procalcitonin. - Started broadspec ceftriaxone to over encapsulated bacteria. - Blood culture unremarkable. unlikely infectious. awaits ID dr. Oneal final say with regards to abx Sickle cell anemia, present on admission, ongoing - Initial presentation Hgb/Hct 8.9/25.4, RDW 16.8, and hyperbilirubinemic. Normal platelets counts though. - Will transfuse of Hgb <6.0 and consider hydroxyurea. Acute encephalopathy, present on admission; ongoing - Patient has severe agitation from the pain he is experiencing - If agitation is not solved by increased opioid administration will consider using Ativan or Haldol Hepatitis C, Genotype 1a, present on admission, on going. - Uncertain of source. Though possible 2nd to IV drug use, past blood transfusion - Will need to be follow-up outpatient. Bilateral feet numbness present on admission; ongoing - Presentation likely secondary to acute occlusive vascular disease due to sickle cell crisis. Patient's toes are also cyanotic - No other neurological symptoms to suggest stroke, with Babinski negative, patient moving all extremities - Will CT or MRI of the brain with neurologic changes. 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 GI Prophylaxis: H2 rashel VTE Prophylaxis: Sub-Q Heparin (Unfractionated) (SCD are hypercoag. ) Resuscitation Status: CPR: Attempt Resuscitation Time spent 25 minutes Attending Statement I have seen and evaluated patient at bedside in addition to directly supervising care provided by resident physician. I agree with above documentation. Jeremy Zaragoza DO Dec 07, 2016 06:59 Arnoldo Flores DO Dec 08, 2016 08:40
--- NOTE | 2016-12-07 11:26 | NUR ---
Social Work Note: Attempted CD Assessment D: LINING SCRUBBER met with Pt to complete CD assessment. Pt was awake and alert and agreeable to meeting with LINING SCRUBBER. As LINING SCRUBBER began the assessment, Pt's friends walked in and Pt indicated that he did not want to complete assessment with his friends there. Pt requested that LINING SCRUBBER return at a later time. A: Deferred P: Social Work to check in later in a further attempt to complete CD assessment. Chloé Monroy LINING SCRUBBER, AAC
[2016-12-07] MEDS ORDERED: oxyCODONE ER 40 mg ER12 Tablet PO SCH (12:59)
[2016-12-07 13:06] VITALS: RESP 18; O2SAT 96
[2016-12-07 13:43] VITALS: BP 134/69; PULSE 100; RESP 19; O2SAT 95
--- NOTE | 2016-12-07 15:26 | PROG NOTE ---
[address] [address] PROGRESS NOTE PATIENT: MAYE MENDEZ : 1990 MR#: [id number] ADMIT: 12/03/2016 JOB ID: [id number] DATE: 12/07/2016 INFECTIOUS DISEASE FOLLOWUP NOTE: REASON FOR FOLLOWUP: Sickle cell crisis with fever and abnormalities of right-sided toes. INTERVAL HISTORY: Overnight, the patient says he has been feeling gradually better. No fevers, chills, or GI or pulmonary symptoms, but he is having severe and ongoing pain in the toes on the right foot. This has been the focus of his pain since his admission with his sickle crisis. PHYSICAL EXAMINATION: Reveals an uncomfortable gentleman who is complaining about lack of adequate analgesia. His temperature is 37, it has been as high as 37.7 in the last 24 hours. His last documented fever was two days ago. His pulse is currently 100, respiratory rate 19, blood pressure 134/69. He is saturating reasonably well on room air. The patient is awake and alert. He looks depressed. Oral cavity negative. Lungs quite clear posteriorly really. Cardiac tones without change. Abdomen without change and benign. His right toes, along their dorsal aspect, are most unusual. They appear to almost have deflated bullae covering the dorsal aspect of the toes. This area is tender and around the right third toe there is a small amount of drainage which we sent for Gram stain and culture. The toes do not appear grossly ischemic nor do they appear overtly infected, though that is hard to exclude as they do look painful and there are what appear to be collapsed bullae over the dorsal aspect of the really all five of the toes on the right foot. LABORATORY: Include white count stable at 10,000. Creatinine 0.75. LFTs are normal. Albumin 3.1. Procalcitonin negative. QuantiFERON Gold is negative. His blood cultures are negative and a respiratory viral PCR panel is negative. Review of the chest x-ray shows subtle bibasilar infiltrates. IMPRESSION: At this point I see no evidence for infection in this patient, with the possible exception of his right dorsal toes. These have a very unusual pattern and it seems unlikely that he has simultaneous infection of the dorsal aspect of five separate toes but I suppose it is remotely possible. We have reviewed the literature on the complication of sickle cell known dactylitis, but this is unusual in patients over the age of four and has a somewhat different appearance according to the literature and pictures that we have reviewed. It is conceivable to me that this could be Staph or Strep infection but I think it is much less likely. RECOMMENDATIONS: 1. I would continue with ceftriaxone at least overnight. If we do not have any answers by tomorrow it is probably reasonable to just discontinue the ceftriaxone as he has had a five-day course and his procalcitonin, chest x-ray, and physical exam are not compatible with infection. 2. We have sent a Gram stain of the drainage from the toe. If this should show evidence of purulent material, and especially if there is bacterial growth, we might want to reconsider our plan to stop all antibiotics and instead switch to an oral antibiotic targeted at Staph, Strep, or whatever is seen on the Gram stain. 3. This case was discussed with Dr. Zaragoza and will follow up tomorrow.
--- NOTE | 2016-12-07 16:03 | NUR ---
Pain: Patient has been requesting pain meds regularly and stated that his pain is 7 on 1-10 scale when he was receiving the IV Dilaudid. When he would call to request the pain he would be watching TV calmly and visiting with his friends who came to visit.Off and on through the day he has been dozing off. He ambulated to the bathroom without issues (on his sore feet) He has been eating his meals 100% without issues and calling for extra foods . Since patient has been receiving the PO Roxicodone and the Dilaudid IV was discontinued. Patient has rated his pain at 5 on 1-10 scale . Patient called nurse and appeared to be crying (with no tears visible) to state that he needed more pain meds and his pain is " Terrible" . (this is after patient rated his pain at a 5 on a 1-10 scale) Patient complained that he needed the IV pain meds or something for break through pain. MD placed an order for small dose of Roxicodone for break through pain. The med was given to patient Patient continues to watch TV quietly in his room and order food from the cafeteria for his dinner.
--- NOTE | 2016-12-07 16:30 | NUR ---
Wound Care Wound Evaluation orders received. Pt seen at bedside. 26 yo male in sickle cell crisis with fever and abnormalities of right-sided toes. Presents blisters on the dorsum of 2nd, 4th and 5th toes on the right foot, pulses are good at the foot. Blisters are deroofed with a blade and redressed with a bacitracin ointment and bandaids, wounds are partial thickness and bleeding was minimal and stopped with simple pressure. Will recheck on this patient 12/08/16.
[2016-12-07] MEDS: oxyCODONE ER 40 mg ER12 Tablet PO PRN (18:02)
[2016-12-07 21:58] VITALS: BP 121/63; PULSE 130; RESP 18; O2SAT 96
--- NOTE | 2016-12-07 22:28 | NUR ---
Pain Pt complaining of pain 05/28. Administered 10mg Roxicodone PO. Pt reports, "the Oxycodone XR does not help and would like med to be changed to quick acting." He requested Dilaudid for breakthrough pain as the Roxicodone, "does nothing. ". notifed. No new orders at this time. Will continue to monitor.
--- NOTE | 2016-12-07 22:35 | NUR ---
FEBRILE Pt temp 39.2 per [facility]. Administered 650mg Tylenol PO. MD chicas Will continue to monitor. Addendum: 12/07/16 at 2317 by TIAN SMITH RN Temp Temp decreased to 37.8.
[2016-12-07] MEDS ORDERED: 0.9% Sodium Chloride 100 ML ONE (23:56)
[2016-12-08] MEDS: Heparin 5,000 Unit/mL Inj SUBQ SCH ×4 (00:01→22:54)
[2016-12-08] MEDS: cefTRIAXone Inj 2,000 MG in Dextrose 5% Minibag Plus 50 ML IV SCH (00:01)
[2016-12-08 01:13] VITALS: BP 96/59; PULSE 108; RESP 18; O2SAT 95
[2016-12-08 07:06] VITALS: BP 108/72; PULSE 94; RESP 18; O2SAT 98
[2016-12-08 07:09] LABS: BASOPHILS % (AUTO) 1.2 % (0-3); MONOCYTES % (AUTO) 11.4 % (4-12); Mean Corpuscular Hemoglobin 28.9 pg (27.0-35.0); Mean Corpuscular Volume 79.4 fL (81-100); NEUTROPHILS % (AUTO) 49.4 % (40-74)
[2016-12-08] MEDS: oxyCODONE ER 40 mg ER12 Tablet PO PRN (08:18)
[2016-12-08 12:55] VITALS: BP 102/64; PULSE 108; RESP 16; O2SAT 97
--- NOTE | 2016-12-08 14:02 | NUR ---
Wound Care Dressings removed from toes on right foot, swelling is decreased from yesterday. Wounds are stable and healing, no new blisters. Do not believe right toe wound are infected at this time. Nursing can continue to dress toes right foot with bandaids PRN.
--- NOTE | 2016-12-08 16:35 | PROG NOTE ---
[address] [address] PROGRESS NOTE PATIENT: MAYE MENDEZ : 1990 MR#: [id number] ADMIT: 12/03/2016 JOB ID: [id number] DATE: 12/08/2016 INFECTIOUS DISEASE FOLLOW UP NOTE: REASON FOR FOLLOW UP: Sickle cell crisis with possible underlying infection of the right toes. INTERVAL HISTORY: Overnight, the patient says he is still having pain in his toes on the right side. He has no fevers, chills, or respiratory complaint. No new GI complaint. PHYSICAL EXAMINATION: Reveals an afebrile gentleman, who was 39.2 degrees last night. Currently pulse 108, respiratory rate 16, blood pressure 102/64. He is saturating well on room air. Examination of the mental status reveals he is clear. Oral cavity negative. Lungs clear. Abdomen benign. The dorsal aspect of all of the toes on the right foot is somewhat less tender today and though there is still like some residual blistering and what would appear to be the flaccid remnants of blisters present over the dorsal toes 2-5. Otherwise the patient's examination is unchanged. LABORATORIES: Include white count 10,700, which is unchanged. Creatinine 0.74. LFTs normal. Urinalysis negative. QuantiFERON Gold negative and no other positive cultures. Yesterday, he had a small amount of material draining from his right third toe which we carefully cultured and somehow this never reached the laboratory. I have confirmed with the micro laboratory that they do not have it and no one knows where it went. IMPRESSION: Concerns about infection seem to be receding in this patient but I still remain concerned about his spiking high fevers, and his toes. His fevers may in fact be due to his sickle cell crisis in and of itself, but it is always difficult to know in a situation such as this where the sickle cell fevers stop and infection begins. RECOMMENDATIONS: 1. Would go ahead and discontinue the ceftriaxone and observe the patient. 2. If his fevers continue, I would keep him in the hospital at least until he has been afebrile for 48 hours or so. Should his fevers persist after we stop the ceftriaxone, I think it would be reasonable to again carefully examined his toes and re-culture them. It may even be worthwhile to x-ray or MRI scan his toes if his fevers continued.
--- NOTE | 2016-12-08 18:15 | NUR ---
Pain/ Activity: Patient has been up ad guillermo in his room . He has complained of having pain 5-8 on 1-10 scale in his feet. Patient was discovered on the hospital computer in his room . Patient was told by 2 nursing staff members that patients are not allowed to have access to computers in room. Nursing Staff members log off the computer each time they leave the room now. For patients foot comfort hot packs were placed on feet throughout the day at his request with a warm blanket to cover them. Patient was given his prn pain meds as directed by MD. Patient stated that the pain meds did "Take the edge off the pain. Also nurse called patients mother at his request and left a message with a number for her to call him in his room.
--- NOTE | 2016-12-08 18:39 | PCM.PNMED ---
Subjective Date of Service Dec 08, 2016 Subjective Wound care has checked on his legs yesterday afternoon, no signs of infections. Overnight, patient spiked another fever while on ceftriaxone. Etiology unknown. Patient himself though, denies any new complaints. Patient continues to cc right leg pain. He states that Benadryl works with the opioids and wants it every 6hrs. Otherwise, patient rest comfortably throughout the day, likes to check is RETC. Patient has hx of polydrug abuse, he has admits to recent opioid and methamphetamine use. Exam Vital Signs Vital Sign - Last Date Time Temp Pulse Resp B/P Pulse Ox O2 Delivery O2 Flow Rate FiO2 12/08/16 12:55 37.2 108 16 102/64 97 Room Air 12/03/16 21:04 2.00 Intake and Output 12/07/16 12/07/16 12/08/16 Cumulative From/Thru 15:00 23:00 07:00 12/03/16 21:04 - 12/07/16 21:43 Intake Total 2155 ml 67802 ml Output Total 1500 ml 21360 ml Balance 655 ml 8839 ml Intake Oral 1272 ml 13352 ml IV Total 883 ml 09418 ml Output Urine Total 1500 ml 91174 ml # Voids 5 # Bowel Movements 1 3 Exam Gen: Resting comfortably. HEENT: PERRLA. Sclerae icteric, moist conjunctivae, and no lid lag. Neck: Supple, no JVD Cardio: Tachycardic, regular rate and rhythm, no murmur rub or gallop Pulm: Bilateral air sound, no wheezes, crackles, or rhonchi Abd: Positive bowel sounds, soft, nontender, splenomegaly Extremities: No clubbing, cyanosis, edema, or lymphadenopathy appreciated. capillary refill <2sec b/l foot, +2 b/l pedal pulses. Right 4th finger missing. Skin: Normal temperature, bullae right toes. mild erythema. Neuro: Cranial nerves grossly intact. Normal muscle strength, tone, and bulk. Reflexes, coordination, and sensory function within normal limits. No known gait impairment. Psyc: Normal mood and affect. Alert and oriented to person, place, and time. IVs and Medications Medications Reviewed: Medications were reviewed in detail Lab and Diagnostics Result Diagram: 12/08/16 0650 12/08/16 0650 X-Rays, CTs and MRIs PROCEDURE: X-RAY CHEST ONE VIEW, PORTABLE INDICATIONS: sickle cell IMPRESSION: Right basilar atelectasis versus aspiration or pneumonia. Correlate clinically. Dictated by: Navid BOWMAN Interpreted: Emily Ray MD on 12/04/2016 at 9:33 Assessment & Plan Patient is a 26-year-old male with medical history significant for repeated sickle cell crisis with frequent presentation to [facility] for treatment, polydrug abuse, and hepatitis C admitted for sickle cell crisis. Fever of unknown origin, not present on admission, resolving - Possible bacteremia in the setting of enlarged spleen. - Patient received 4days of ceftriaxone. Yet intermitently spikes fever. - Some concerns that foot wound may have seed deep into bone. - Per Infectious Disease Dr. Oneal, consider MRI of right foot should he continue to spike fevers. - More likely though, fever may be 2nd to Opioids withdraw. He endorse habitual heroin use. Polydrug abuse, present on admission, active - Past hx of heroin abuse, tested positive for amphetamines on this admission - Patient had displayed drug seeking behavior. Pain management strategy will be conservative. - Likely withdrawing from opioids (perhaps new opioid synthetics): fever, tachycardia, aches, insomnia needing Benadryl - Social work referral. Acute sickle cell crisis; present on admission; resolving - Had multiple admission for sickle cells crisis in the past. A transfer patient from [facility] [place] [place]. - Inciting factor likely habitual methamphetamine use. Difficult to start IVs. - No symptoms of worsening anemia, renal insufficiency, or respiratory distress. Bilirubin trended to normal. - D/c fluids as he tolerates PO intake well - Pain control: taper down, oxycodone IR 30mg Q6H PRN. Benadryl 12.5-25mg IV PRN. - D/c Dilaudid drip and lorazepam PRN Sickle cell anemia, present on admission, stable - Initial presentation Hgb/Hct 8.9/25.4, RDW 16.8, and hyperbilirubinemic. Normal platelets counts though. - Will transfuse of Hgb <6.0 and consider hydroxyurea. Acute encephalopathy, present on admission; ongoing - Patient has severe agitation from the pain he is experiencing - If agitation is not solved by increased opioid administration will consider using Ativan or Haldol Hepatitis C, Genotype 1a, present on admission, on going. - Uncertain of source. Though possible 2nd to IV drug use, past blood transfusion - Will need to be follow-up outpatient. Bilateral feet numbness present on admission; ongoing - Presentation likely secondary to acute occlusive vascular disease due to sickle cell crisis. Patient's toes are also cyanotic - No other neurological symptoms to suggest stroke, with Babinski negative, patient moving all extremities - Will CT or MRI of the brain with neurologic changes. 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 GI Prophylaxis: H2 rashel VTE Prophylaxis: Sub-Q Heparin (Unfractionated) (SCD are hypercoag. ) Resuscitation Status: CPR: Attempt Resuscitation Time spent 25 minutes Attending Statement I have seen and evaluated patient at bedside in addition to directly supervising care provided by resident physician. I agree with above documentation. Jeremy Zaragoza DO Dec 08, 2016 18:39 Arnoldo Flores DO Dec 09, 2016 12:22
[2016-12-08 20:42] VITALS: BP 99/57; PULSE 118; RESP 18; O2SAT 95
[2016-12-09 02:00] VITALS: BP 114/63; PULSE 120; RESP 18; O2SAT 95
[2016-12-09 06:02] VITALS: BP 110/59; PULSE 107; RESP 18; O2SAT 94
[2016-12-09] MEDS: Heparin 5,000 Unit/mL Inj SUBQ SCH ×2 (08:30→17:09)
--- NOTE | 2016-12-09 13:33 | NUR ---
IV attempts On this date this RN was attempting IV start for this patient. During my evaluation and after two attempts Dr. Flores came into the patient's room and he and i discussed the need for an IV. Dr. Flores states at this time the patient does not need an IV. Attempts were then stopped. I then informed Yves the patients RN of the above information. Hilario Mello RN
--- NOTE | 2016-12-09 13:49 | PCM.PNMED ---
Subjective Date of Service Dec 09, 2016 Subjective Pt seen and examined at bedside. Pain is still bad at times, now located only in toes. Notes current pain medications are sufficient to control pain initially , but at times effect wanes before next dose due leading to breakthrough pain. Last recorded fever at ~8pm last night. Still utilizing IV benadryl for sleep/ effect rather than itching or pain. Denies pain in other areas. Was able to ambulate a small amount yesterday evening, however he notes this was when pain was better controlled, not able to apply pressure to toes during breakthrough periods. Exam Vital Signs Vital Sign - Last Date Time Temp Pulse Resp B/P Pulse Ox O2 Delivery O2 Flow Rate FiO2 12/09/16 06:02 36.8 107 18 110/59 94 Room Air 12/03/16 21:04 2.00 Intake and Output 12/08/16 12/08/16 12/09/16 Cumulative From/Thru 15:00 23:00 07:00 12/03/16 21:04 - 12/08/16 21:41 Intake Total 800 ml 1346 ml 68929 ml Output Total 1125 ml 15275 ml Balance -325 ml 1346 ml 9860 ml Intake Oral 800 ml 1346 ml 74486 ml IV Total 09185 ml Output Urine Total 1125 ml 88571 ml # Voids 3 8 # Bowel Movements 0 3 General: Alert, Oriented X3, Moderate Distress, Other (very sedate during examine. ) Eyes: PERRLA, Other Chest & Lungs: Clear to auscultation & percussion Cardiovascular: Other (regular rhythm, mildly elevated rate) Skin: Other (swelling of toes on right foot reminas, though appears slightly impromved. toes warm, ulcerations stable. Also eraythematous areas of right forearm noted, previously present. ) Neurological: Grossly Neurologically Intact Lab and Diagnostics Result Diagram: 12/08/16 0650 12/08/16 0650 X-Rays, CTs and MRIs PROCEDURE: X-RAY CHEST ONE VIEW, PORTABLE INDICATIONS: sickle cell IMPRESSION: Right basilar atelectasis versus aspiration or pneumonia. Correlate clinically. Dictated by: Navid BOWMAN Interpreted: Emily Ray MD on 12/04/2016 at 9:33 Assessment & Plan Patient is a 26-year-old male with medical history significant for repeated sickle cell crisis with frequent presentation to [facility] for treatment, polydrug abuse, and hepatitis C admitted for sickle cell crisis. Fever of unknown origin, not present on admission, resolving - Possible bacteremia in the setting of enlarged spleen, also concern for infection of foot given persistent swelling and pain. - Patient received 4days of ceftriaxone. Yet intermittently spikes fever. - Some concerns that foot wound may have seed deep into bone. - Per Infectious Disease Dr. Oneal, consider MRI of right foot should he continue to spike fevers. Ideally would like to observe in hospital >48 hours without fever prior to DC. - More likely though, fever may be 2nd to Opioids withdraw. He endorse habitual heroin use. Polydrug abuse, present on admission, active - Past hx of heroin abuse, tested positive for amphetamines on this admission - Patient had displayed drug seeking behavior. Pain management strategy will be conservative. - Likely withdrawing from opioids (perhaps new opioid synthetics): fever, tachycardia, aches, insomnia needing Benadryl - Social work referral. Acute sickle cell crisis; present on admission; resolving - Had multiple admission for sickle cells crisis in the past. A transfer patient from [facility] [place]. - Inciting factor likely habitual methamphetamine use. Difficult to start IVs. - No symptoms of worsening anemia, renal insufficiency, or respiratory distress. Bilirubin trended to normal. - D/c fluids as he tolerates PO intake well, IV access lost when pt removed IV in hand. - Pain control: taper down, oxycodone IR 20mg Q4H PRN. Transition Benadryl to oral formulation PRN. - D/c Dilaudid drip and lorazepam PRN Sickle cell anemia, present on admission, stable - Initial presentation Hgb/Hct 8.9/25.4, RDW 16.8, and hyperbilirubinemic. Normal platelets counts though. - Will transfuse of Hgb <6.0 and consider hydroxyurea. Acute encephalopathy, present on admission; ongoing - Patient has severe agitation from the pain he is experiencing - If agitation is not solved by increased opioid administration will consider using Ativan or Haldol Hepatitis C, Genotype 1a, present on admission, on going. - Uncertain of source. Though possible 2nd to IV drug use, past blood transfusion - Will need to be follow-up outpatient. Bilateral feet numbness present on admission; ongoing - Presentation likely secondary to acute occlusive vascular disease due to sickle cell crisis. Patient's toes are also cyanotic - No other neurological symptoms to suggest stroke, with Babinski negative, patient moving all extremities - Will CT or MRI of the brain with neurologic changes. - Consider adding gabapentin, Alpha lipoic acid, and vitamin D out patient for neuropathic pain Chronic 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; present on admission; ongoing - Patient has chronic history of splenomegaly from his sickle cell with reports of possible resection in the future - Seems to be stable at home, however his spleen is grossly enlarged to the midline and 3 cm above the umbilicus - There is no thrombocytopenia on admission, we will continue to follow Acetaminophen PRN for fever Antiemetics PRN Bowel regiment PRN Disposition: Patient will be discharged 1-2 days without further evidence of fever/infection. GI Prophylaxis: H2 rashel VTE Prophylaxis: Sub-Q Heparin (Unfractionated) (SCD are hypercoag. ) Resuscitation Status: CPR: Attempt Resuscitation Time spent 30 minutes Arnoldo Flores DO Dec 09, 2016 13:49
[2016-12-09 14:38] VITALS: BP 112/68; PULSE 114; RESP 20; O2SAT 98
[2016-12-09 21:11] VITALS: BP 126/83; PULSE 131; RESP 20; O2SAT 96
[2016-12-09] MEDS: diphenhydrAMINE 50 mg Capsule PO PRN (21:17)
[2016-12-10] MEDS: Heparin 5,000 Unit/mL Inj SUBQ SCH ×2 (00:30→09:18)
[2016-12-10 05:21] VITALS: BP 114/69; PULSE 73; RESP 18; O2SAT 97
[2016-12-10] MEDS: diphenhydrAMINE 50 mg Capsule PO PRN (05:33)
--- NOTE | 2016-12-10 06:20 | NUR ---
Fever Pt temp 37.9. Administered Tylenol 650mg PO, resolved.
--- NOTE | 2016-12-10 06:22 | NUR ---
Smoke When RN answered call light room/bathroom smelled like cigarette smoke. Pt and visitor both denied any smoking in room.Pt adamant he did not have any cigarettes in his room/belongings. RN reviewed hospital smoking policy. Will continue to monitor.l
--- NOTE | 2016-12-10 09:22 | NUR ---
Refuse Head to Toe Assessment Patient refuse for the Primary Nurse to conduct Head to Toe assessment at 0923. Patient states I'm not going through this "s" again, are you kidding me, get me the doctor.
--- NOTE | 2016-12-10 12:11 | PCM.DIMED ---
Jeremy Zaragoza DO 12/08/16 0702: Discharge Instructions Date of Service Dec 08, 2016 Dates of Hospitalization Dec 03, 2016 at 20:59 Discharge Diagnosis Discharge Diagnosis Polydrug abuse, present on admission, active Acute sickle cell crisis; present on admission; resolving Fever of unknown origin, not present on admission, resolving Sickle cell anemia, present on admission, ongoing Acute encephalopathy, present on admission; ongoing Hepatitis C, Genotype 1a, present on admission, on going. Bilateral feet numbness present on admission; ongoing Chronic 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; present on admission; ongoing Diet No restrictions Activity No restrictions Call your provider Fever or Chills Patient Instructions You were admitted at [facility] for Sickle Cell crisis. You respond well with fluids and some pain control. Your blood work have showed continue improvements. I believe you are no longer in sickle cell crisis. I do not recommend you use meth or heroin anymore. Otherwise, you would likely have another sickle cell crisis. We have evaluated your toe wounds on the right foot. It does not seemed infected. Please come back should you have continue fever or chills. Please call [facility] in 1wk for "hospital follow-up" Follow-up Provider: BALDEV BRAGG DO Follow-up with PCP in: 1 week Arnoldo Flores DO 12/10/16 1328: Discharge Instructions Attending's Statement Read and agree Jeremy Zaragoza DO Dec 08, 2016 07:02 Arnoldo Flores DO Dec 10, 2016 13:28
[2016-12-10] MEDS ORDERED: OXYC20TA4 PO (12:13)
--- NOTE | 2016-12-10 12:25 | NUR ---
Discharge Patient discharge to home with all belongings at 1225. Explained to patient renewed medication (oxycodone), when next medications are due, and discharge instructions. Patient verbalized understanding. Patient did not have an IV or telemetry to Dc. Vitals stable. Patient left floor on his own two feet accompanied by sister with no signs of distress.
--- NOTE | 2016-12-10 16:39 | PROG NOTE ---
[address] [address] PROGRESS NOTE PATIENT: MAYE MENDEZ : 1990 MR#: [id number] ADMIT: 12/03/2016 JOB ID: [id number] DATE: 12/10/2016 REASON FOR FOLLOWUP: Sickle cell crisis with fever and infection. INTERVAL HISTORY: Over the weekend, the patient has been essentially afebrile. He reports that he is feeling better in all ways and no longer has any fevers, chills or sweats. His only problem still is the pain in the toes of the right foot which is slowly subsiding but still fairly painful. Otherwise, he has no cough, shortness of breath, chest pain, nausea, vomiting, or diarrhea. PHYSICAL EXAMINATION: Reveals an afebrile gentleman. His T-max was 37.9 yesterday evening and that is the warmest he has been in two days. His blood pressure is good at 114/69, pulse 73, respiratory rate 18, saturating well on room air. When I saw him, he was up and walking around the room without any difficulty whatsoever. His mental status is sharp. Oral cavity negative. Lungs clear. Abdomen benign. His right toes along the dorsal aspect have some obvious shallow skin breakdown which does not appear overtly infected. It does appear that obviously there has been some infarction and ischemia along those lateral dorsal toes and that is what we are seeing, but it actually is improving over the last 48 hours without antibiotics. No recent white count is available. Our last procalcitonin was 0.42 on the . QuantiFERON Gold has come back negative. No new micro is available. The toe culture we did several days ago was never found. IMPRESSION: From an infectious disease point of view, this patient is ready for discharge. I see no evidence of ongoing bacterial or other infection. The dorsal toes on the right foot appear to have suffered from some skin infarction and there is a bit of sloughing going on there, but there is no evident infection. I did tell the patient it will be essential to keep his toes clean, dry and watch them closely. Should they become erythematous or tender, more overtly infected or he develops fever or chills, he should return to the hospital as soon as possible. RECOMMENDATIONS: 1. The patient be discharged today without antibiotics. 2. He was instructed regarding foot care and observing the toes. 3. ID will sign off at this time.
--- NOTE | 2017-01-03 19:59 | PCM.DC.MED ---
Discharge Summary Date of Service Jan 03, 2017 Dates of Hospitalization Date of Hospital Admission Dec 03, 2016 at 20:59 Date of Discharge: Dec 10, 2016 Providers: Admitting Physician: Jorge L Baca MD Primary Care Physician: Shyla Attending Physician: Jorge L Baca MD Diagnosis at Time of Discharge Diagnosis at Time of Discharge Polydrug abuse, present on admission, active Acute sickle cell crisis; present on admission; resolving Fever of unknown origin, not present on admission, resolving Sickle cell anemia, present on admission, ongoing Acute encephalopathy, present on admission; ongoing Hepatitis C, Genotype 1a, present on admission, on going. Bilateral feet numbness present on admission; ongoing Chronic 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; present on admission; ongoing Procedures XRay, CTs & MRIs PROCEDURE: X-RAY CHEST ONE VIEW, PORTABLE INDICATIONS: sickle cell IMPRESSION: Right basilar atelectasis versus aspiration or pneumonia. Correlate clinically. Dictated by: Navid BOWMAN Interpreted: Emily Ray MD on 12/04/2016 at 9:33 Brief History 26-year-old male with a history of sickle cell anemia and polysubstance abuse including IV drug abuse presented to [facility] emergency department due to ongoing bilateral upper leg pain and left foot numbness for the last 2-3 days. He states that the numbness began shortly after the upper leg pain, and he soon developed lower leg pain bilaterally with cyanosis of his toes bilaterally. Patient did not try to treat his pain at home. He states that he was recently using methamphetamines prior to the pain, however, he is unable to identify exactly when he last used. He states that he no longer uses IV heroin. Patient has history of multiple admissions to both [facility] and [facility] with his last admission at [facility] in August 2016 for sickle cell crisis. At this time the patient endorses abdominal pain, specifically in the left upper quadrant, but also diffusely on palpation; denies any chest pain, cough, chills , nausea, vomiting, fever, diarrhea, hematemesis, hematochezia, headache, blurry vision, or other neurological symptoms except as already discussed. Patient states that he was supposed to have a splenectomy some time ago but has never had the procedure. Patient states that on prior admissions he has been given Dilaudid and Benadryl to control the pain. [place] [facility] given 2 L of normal saline, Dilaudid 5 mg, morphine IV 4 mg. Labs obtained [address] [facility] show white count of 9.3, hemoglobin of 9.0, hematocrit 24.5, platelets of 294, 61% neutrophils, reticulocyte count of 205, with a 41% immature reticular fraction. CMP reveals a sodium of 142, potassium of 3.8, chloride of 107, bicarbonate of 30, BUNs of 6, creatinine of 0.83, elevated AST at 42, a LT normal at 37, glucose of 158. Lactic was drawn but not reported Hospital Course Patient is a 26-year-old male with medical history significant for repeated sickle cell crisis with frequent presentation to [facility] for treatment, polydrug abuse, and hepatitis C admitted for sickle cell crisis. He responded well to IV fluid hydration and pain management and well by day 3. However, patient spiked intermitted fever with mild leukocytosis throughout his stay and was thus started on empiric ceftriaxone days. No other signs of infections, patient was discharged on day 7 hospitalization. Pain medication were tapered down to outpatient regiment. PCP was contacted and appt made for close outpatient hospital follow-up. Fever of unknown origin, not present on admission, resolving - Possible bacteremia in the setting of enlarged spleen, also concern for infection of foot given persistent swelling and pain. - Patient received 4days of ceftriaxone. Yet intermittently spikes fever. - Some concerns that foot wound may have seed deep into bone. - Per Infectious Disease Dr. Oneal, consider MRI of right foot should he continue to spike fevers. Ideally would like to observe in hospital >48 hours without fever prior to DC. - More likely though, fever may be 2nd to Opioids withdraw. He endorse habitual heroin use. Polydrug abuse, present on admission, active - Past hx of heroin abuse, tested positive for amphetamines on this admission - Patient had displayed drug seeking behavior. Pain management strategy will be conservative. - Likely withdrawing from opioids (perhaps new opioid synthetics): fever, tachycardia, aches, insomnia needing Benadryl - Social work referral. Acute sickle cell crisis; present on admission; resolving - Had multiple admission for sickle cells crisis in the past. [place] [facility] [place] - Inciting factor likely habitual methamphetamine use. Difficult to start IVs. - No symptoms of worsening anemia, renal insufficiency, or respiratory distress. Bilirubin trended to normal. - D/c fluids as he tolerates PO intake well, IV access lost when pt removed IV in hand. - Pain control: taper down, oxycodone IR 20mg Q4H PRN. Transition Benadryl to oral formulation PRN. - D/c Dilaudid drip and lorazepam PRN Sickle cell anemia, present on admission, stable - Initial presentation Hgb/Hct 8.9/25.4, RDW 16.8, and hyperbilirubinemic. Normal platelets counts though. - Will transfuse of Hgb <6.0 and consider hydroxyurea. Acute encephalopathy, present on admission; ongoing - Patient has severe agitation from the pain he is experiencing - If agitation is not solved by increased opioid administration will consider using Ativan or Haldol Hepatitis C, Genotype 1a, present on admission, on going. - Uncertain of source. Though possible 2nd to IV drug use, past blood transfusion - Will need to be follow-up outpatient. Bilateral feet numbness present on admission; ongoing - Presentation likely secondary to acute occlusive vascular disease due to sickle cell crisis. Patient's toes are also cyanotic - No other neurological symptoms to suggest stroke, with Babinski negative, patient moving all extremities - Will CT or MRI of the brain with neurologic changes. - Consider adding gabapentin, Alpha lipoic acid, and vitamin D out patient for neuropathic pain Chronic 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; present on admission; ongoing - Patient has chronic history of splenomegaly from his sickle cell with reports of possible resection in the future - Seems to be stable at home, however his spleen is grossly enlarged to the midline and 3 cm above the umbilicus - There is no thrombocytopenia on admission Exam Test 12/03/16 23:34 12/04/16 05:10 12/05/16 06:48 12/05/16 17:15 Urine Color Yellow (YELLOW) Urine Appearance Clear (CLEAR,HAZY) Urine pH 6.0 (5.0-8.0) Urine Specific [place] 1.015 (1.003-1.035) Urine Protein Negativemg/dL (NEG,TRACE) Urine Glucose (UA) Negativemg/dL (NEGATIVE) Urine Ketones Negativemg/dL (NEGATIVE) Urine Occult Blood Negative (NEGATIVE) Urine Nitrite Negative (NEGATIVE) Urine Bilirubin Negative (NEGATIVE) Urine Urobilinogen Normalmg/dL (NORMAL) Urine Leukocyte Esterase Negative (NEGATIVE) Urine RBC 0-2/hpf (0-2) Urine WBC 0-5/hpf (0-5) Urine Epithelial Cells Occasional/hpf (NONE-MOD) Urine Crystals None seen (NONE SEEN) Urine Bacteria None/hpf (NONE-FEW) Urine Hyaline Casts None/lpf (NONE) Urine Granular Casts None seen (NONE SEEN) Urine Waxy Casts None seen (NONE SEEN) Urine Red Blood Cell Casts None seen (NONE SEEN) Urine White Blood Cell Casts None seen (NONE SEEN) Urine Mucus None seen (None Seen) Urine Trichomonas None seen (NONE SEEN) Urine Yeast None (NONE SEEN) Urine Culture Reflexed Not indicated Urine Opiates Screen Negative Urine Methadone Screen Negative Urine Barbiturates Screen Negative Urine Amphetamines Screen Positive Urine Benzodiazepines Screen Negative Urine Cocaine Metabolite Screen Negative Urine Cannabinoids Screen Negative Lactic Acid Level 1.5mmol/L (0.4-2.0) Lactate Dehydrogenase 484U/L (100-190) Troponin T 0.010ug/L (0.0-0.011) Nucleated Red Blood Cells 2/100 WBC (0-24) TB Test (QFT) Gold In Tube Negative (Negative) TB Test (QFT) Incubation Comment (.) TB Test (QFT) Mitogen 6.24IU/mL (.) TB Test (QFT) Antigen 0.02IU/mL (.) TB Test (QFT) Antigen Minus Nil 0.00IU/mL (.) TB Test (QFT) TB - Nil 0.02IU/mL (.) TB Test (QFT) Positive Criteria Comment (.) TB Test (QFT) Interpretation Comment (.) Test 12/08/16 06:50 White Blood Count 10.7th/mm3 (3.8-10.1) Red Blood Count 3.88mil/mm3 (4.40-5.80) Hemoglobin 11.2g/dL (13.8-17.2) Hematocrit 30.8% (41.0-50.0) Mean Corpuscular Volume 79.4fL (81-100) Mean Corpuscular Hemoglobin 28.9pg (27.0-35.0) Mean Corpuscular Hemoglobin Concent 36.4% (32.0-37.0) Red Cell Distribution Width 16.9% (12.3-15.4) Platelet Count jacquelin/L (150-400) Neutrophils (%) (Auto) 49.4% (40-74) Lymphocytes (%) (Auto) 27.0% (14-46) Monocytes (%) (Auto) 11.4% (4-12) Eosinophils (%) (Auto) 9.0% (0-5) Basophils (%) (Auto) 1.2% (0-3) Hematology Comments Rbc Sodium Level 140mEq/L (134-144) Potassium Level 5.6mEq/L (3.5-5.2) Chloride Level 101mEq/L (97-108) Carbon Dioxide Level 25mmol/L (18-29) Blood Urea Nitrogen 8mg/dL (6-20) Creatinine 0.74mg/dL (0.76-1.27) Estimat Glomerular Filtration Rate 136mL/min (>59) Glucose Level 114mg/dL (60-99) Calcium Level 9.1mg/dL (8.5-10.1) Total Bilirubin 0.8mg/dL (0.0-1.2) Aspartate Amino Transf (AST/SGOT) 37U/L (0-50) Alanine Aminotransferase (ALT/SGPT) 19U/L (0-44) Alkaline Phosphatase 77U/L (25-150) Total Protein 7.8g/dL (6.4-8.4) Albumin 3.4g/dL (3.4-5.0) Procalcitonin 0.42ng/mL (See Comment) Discharge Medications Discharge Medications Folic Acid (Folic Acid) 1 Mg Tablet 1 MG PO DAILY Prescribed by: CORIN BRAGG DO Hydroxyurea (Hydroxyurea) 500 Mg Capsule 500 MG PO BID (Reported) Mupirocin (Mupirocin Ointment) 22 Gm Oint...g. 1 APPLIC NASAL BID Prescribed by: CORIN BRAGG DO As needed Ibuprofen (Ibuprofen) 600 Mg Tablet 600 MG PO q6 hours PRN PRN For Pain ( Reported) oxyCODONE (oxyCODONE) 20 Mg Tablet 20 MG PO Q6H PRN PRN For Pain Prescribed by: SEGUN ZARAGOZA DO Followup Plan Discharge Diet: No restrictions Discharge Activity: No restrictions Patient Instructions You were admitted at [facility] for Sickle Cell crisis. You respond well with fluids and some pain control. Your blood work have showed continue improvements. I believe you are no longer in sickle cell crisis. I do not recommend you use meth or heroin anymore. Otherwise, you would likely have another sickle cell crisis. We have evaluated your toe wounds on the right foot. It does not seemed infected. Please come back should you have continue fever or chills. Please call [facility] clinic in 1wk for "hospital follow-up" Follow-up Provider: Corin Bragg DO Follow-up with PCP in: 1 week Time spent 35 minutes Attending Statement I have seen and evaluated patient at bedside, in addition to directly supervising care provided by resident physician. I agree with above documentation. Segun Zaragoza DO Jan 03, 2017 19:59 Arnoldo Flores DO Jan 04, 2017 07:07
== END 2016-12-10 12:25 | disposition home or self-care (01) | DRG 662 ==
LOC: MPC 20:59
PROVIDERS: ADMIT Hospitalist; ATTEND Hospitalist
DX: D57.00 Hb-SS disease with crisis, unspecified (principal); G93.40 Encephalopathy, unspecified; R16.1 Splenomegaly, not elsewhere classified; R20.0 Anesthesia of skin; F17.210 Nicotine dependence, cigarettes, uncomplicated; F15.10 Other stimulant abuse, uncomplicated; R50.81 Fever presenting with conditions classified elsewhere; B19.20 Unspecified viral hepatitis C without hepatic coma; F11.10 Opioid abuse, uncomplicated

== ENCOUNTER 2016-12-22 20:31 | Inpatient (IN) | payer OTHER, MEDICAID ==
[~2016-12-22] VITALS: Ht 180.3 cm; Wt 84.5 kg
[~2016-12-22 20:31] MED LIST changes: -DOXY100T2 PO
[2016-12-22 20:44] VITALS: BP 114/73; PULSE 134; RESP 16; O2SAT 98
--- NOTE | 2016-12-22 22:17 | ED.REPORT ---
HPI-Extremity Problem Lower Date of Service Dec 22, 2016 ED Provider: Oz Melgar MD A 26 year old male with a history of sickle cell anemia, depression and polysubstance abuse presents to the ED complaining of right foot pain that began earlier this evening. Patient has been unable to flex or extend his toes due to pain. Symptoms also include fever and rib pain. He describes the pain in his sides as a pressure; as if someone is "sitting on his chest". He denies cough. Patient has had several similar previous episodes of pain and has had 3 previous admissions for sickle cell crisis. He was recently admitted to [facility] on for sickle cell crisis. He was discharged on 12/10 in good condition. Nursing Notes Stated Complaint: LT FOOT/LEG PAIN Chief Complaint: General Complaint Nursing Notes Reviewed: Yes Allergies: Coded Allergies: No Known Allergies (Unverified , 12/03/16) Scheduled Folic Acid (Folic Acid) 1 Mg Tablet 1 MG PO DAILY Hydroxyurea (Hydroxyurea) 500 Mg Capsule 500 MG PO BID Mupirocin (Mupirocin Ointment) 22 Gm Oint...g. 1 APPLIC NASAL BID Scheduled PRN Ibuprofen (Ibuprofen) 600 Mg Tablet 600 MG PO q6 hours PRN PRN For Pain oxyCODONE (oxyCODONE) 20 Mg Tablet 20 MG PO Q6H PRN PRN For Pain General Time Seen by MD: 22:10 Chief Complaint Other (Right foot pain) Hx Obtained From: Patient Arrived By: Walk-in Onset Occurred: 1 day ago Symptom Duration: Since onset Location: : Foot right Quality: Painful Severity: Current: Moderate Severity: Maximum: Moderate Associated with: Reports: Chest pain, Unable to move joint (Right foot ) Pertinent Negative: Pt denies other symptoms Recent Healthcare: Recent doctor visit, Recent hospitalization Past Medical History Past Medical History Notes: PCP: Baldev Bragg Main provider for sickle cell at [facility] last seen last month Past Medical History Sickle cell anemia Chronic lower back pain and myalgia Depression ADHD Past Surgical History Fourth digit of 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 1 year ago 2014 Family History non-contributory Smoking History Current Every Day Smoker, Never Smoker Social History Alcohol Use: Denies alcohol use Drug Use: IV drugs, Meth, THC Ambulatory Status Independent Review of Systems Constitutional: Reports: Fever Musculoskeletal: Reports: Extremity pain (Right foot pain ) Neurologic: Denies: Change LOC Complete sys rev & neg: except as marked. Respiratory: Denies: Shortness of breath Cardiovascular: Reports: Chest pain (Rib pain ) GI: Denies: Abdominal pain, Nausea, Vomiting Physical Exam Pt is febrile at 38.4 C upon initial examination Initial Vital Signs Vital Signs (First) Date Time Temp Pulse Resp B/P Pulse Ox O2 Delivery O2 Flow Rate FiO2 12/22/16 20:44 37.1 134 16 114/73 98 Room Air 12/22/16 23:12 2 Initial VS: Reviewed Head / Eyes: Atraumatic, Normocephalic, PERRL Upper Extremities: Vascular intact, Neuro intact, No swelling, No tenderness Neurologic: Alert, Oriented, Nonfocal Psychiatric: Mood/affect normal, Behavior normal, Normal thought content Lower Extremity / Pelvis / MS: Atraumatic, Neurologic intact, Vascular intact ( Pulses intact ) Ankle / Foot: Atraumatic, Neurologic intact, Vascular intact (Pulses intact ) ANKLE/FOOT: Desquamation of toes on right Toes are warm General/Constitutional: Awake, Alert Respiratory / Chest: Atraumatic, Breath sounds NL, Breath sounds = bilat RESPIRATORY: Chest wall tenderness Cardiovascular: Regular rhythm, Heart sounds NL, No gallop, No murmurs, No rubs Heart Rate / Rhythm: Positive: Tachycardia Abdomen: Atraumatic, Soft, Non-tender, BS normoactive Interpretation & Diagnostics Lab Results Interpretation Result Diagram: 12/22/16213412/22/162134 Test 12/22/16 21:35 White Blood Count 10.5th/mm3 (3.8-10.1) Red Blood Count 3.73mil/mm3 (4.40-5.80) Hemoglobin 10.3g/dL (13.8-17.2) Hematocrit 28.4% (41.0-50.0) Mean Corpuscular Volume 76.1fL (81-100) Mean Corpuscular Hemoglobin 27.6pg (27.0-35.0) Mean Corpuscular Hemoglobin Concent 36.3% (32.0-37.0) Red Cell Distribution Width 17.0% (12.3-15.4) Platelet Count 493bil/L (150-400) Neutrophils (%) (Auto) 62.6% (40-74) Lymphocytes (%) (Auto) 19.8% (14-46) Monocytes (%) (Auto) 13.9% (4-12) Eosinophils (%) (Auto) 2.4% (0-5) Basophils (%) (Auto) 1.0% (0-3) Reticulocyte Count,Calculated 2.5% (0.6-2.6) Hold Purple Top Tube Received (Received) Hold Blue Top Tube Received (Received) Sodium Level 136mEq/L (134-144) Potassium Level 3.8mEq/L (3.5-5.2) Chloride Level 95mEq/L (97-108) Carbon Dioxide Level 28mmol/L (18-29) Blood Urea Nitrogen 8mg/dL (6-20) Creatinine 0.63mg/dL (0.76-1.27) Estimat Glomerular Filtration Rate 164mL/min (>59) Glucose Level 122mg/dL (60-99) Lactic Acid Level 1.0mmol/L (0.4-2.0) Calcium Level 9.1mg/dL (8.5-10.1) Magnesium Level 1.8mg/dL (1.6-2.6) Total Bilirubin 1.8mg/dL (0.0-1.2) Aspartate Amino Transf (AST/SGOT) 110U/L (0-50) Alanine Aminotransferase (ALT/SGPT) 132U/L (0-44) Alkaline Phosphatase 107U/L (25-150) Total Protein 7.8g/dL (6.4-8.4) Albumin 3.6g/dL (3.4-5.0) Lipase 14U/L (13-60) Hold Red Top Tube Received (Received) Hold [place] Top Tube Received (Received) Hold Hernandez Top Tube Received (Received) ECG Interpretation ECG Interpretation: Sinus Tachycardia Rate [address] segment changes Time: 22:38 Interpreted by: ED physician Normal ECG Interpretation: No change from prior ECGs (09/03/2016) X-Ray Chest Interpretation Chest Xray Interpretation: IMPRESSION: Increased or new infiltrate at right base Interpretation / Wet Read by: Wet read ED physician X-Ray Interpretation Xray Interpretation: IMPRESSION: No evidence of bony infection X-Ray Ordered: Foot right Interpretation / Wet Read by: Wet read ED physician Re-Eval/Medical Decision Med Decision/Clinical Course 26-year-old with sickle cell disease presenting with fever and right lower extremity pain. There is also a new infiltrate at the right base. He is noted to have a decrease in oxygen saturation while in the department of any infiltrate and a decreased saturation I believe is experiencing a chest crisis as well as lower extremity vaso-occlusive crisis. He was given IV fluids, opiate analgesia blood cultures were obtained and broad-spectrum antibiotic coverage was initiated with a second-generation cephalosporin and azithromycin. To be admitted to the hospitalist service. Hemoglobin is greater than 10 a do not believe he requires a blood transfusion today. He has good circulation to the right lower extremity. Re-Evaluation/Progress #1: Time of Eval: 00:16 Patient Status: Condition improved Re-Evaluation/Progress Note: Patient is rechecked. O2 Stats improved. Re-Evaluation/Progress #2: Time of Eval: 00:22 Patient Status: Condition improved Re-Evaluation/Progress Note: Patient is rechecked. He is informed of his lab results, X-ray results and diagnosis. All questions are addressed. He understands and agrees with the treatment plan to admit. Consultation : Referral / Consult Name: Santa Zarate DO Consulted With: Hospitalist Call Returned at: 00:22 Oil Prospecting Observer: Will see patient, Agrees with eval, Agrees with plan, Accepts admit Counseled Regarding: Diagnosis, Lab results, Need for admission Discharge & Departure Impression: Primary Impression: Sickle cell crisis Additional Impression: Acute chest syndrome in sickle crisis Disposition: ADMITTED TO HOSPITAL Discharge Condition All VS Reviewed: Yes Condition: Stable Referrals: BALDEV BRAGG DO (PCP) Gurjit Attestation Portions of this note were transcribed by Jose A Pal. I, Dr. Melgar personally performed the history, physical exam and medical decision-making; I reviewed and confirmed the accuracy of the information in the transcribed note. Signed by: Gurjit Ramirez, 12/23/16 0200. copies to: BALDEV BRAGG Donald L MD Dec 22, 2016 22:17 JOSE A PAL Dec 22, 2016 22:39
[2016-12-22] MEDS ORDERED: 0.9% Sodium Chloride 1,000 ML IV ONE ×2 (22:26→22:44)
[2016-12-22] MEDS: HYDROmorphone 1 mg/mL Inj IVPUSH PRN ×3 (22:27→23:45)
[2016-12-22] MEDS ORDERED: Ondansetron 2 mg/mL 2 mL Inj IVPUSH PRN (22:30)
[2016-12-22 22:38] LABS: EOSINOPHILS % (AUTO) 2.4 % (0-5); MONOCYTES % (AUTO) 13.9 % (4-12); Mean Corpuscular Hemoglobin 27.6 pg (27.0-35.0); Mean Corpuscular Volume 76.1 fL (81-100); NEUTROPHILS % (AUTO) 62.6 % (40-74); Platelet Count 493 bil/L (150-400)
[2016-12-22] MEDS ORDERED: Pantoprazole 4 mg/mL 10 mL Inj IVPUSH ONE (22:45)
[2016-12-22] MEDS ORDERED: Ondansetron 2 mg/mL 2 mL Inj IVPUSH ONE (22:45)
[2016-12-22 22:56] LABS: Magnesium 1.8 mg/dL (1.6-2.6)
[2016-12-22 23:12] VITALS: BP 120/73; PULSE 120; RESP 18; O2SAT 88
[2016-12-23] VITALS (13 sets, daily range): BP systolic 97–123; BP diastolic 56–74; PULSE 104–126; RESP 12–27; O2SAT 92–99
[2016-12-23] MEDS: HYDROmorphone 1 mg/mL Inj IVPUSH PRN ×11 (00:08→23:14)
[2016-12-23] MEDS ORDERED: Cefotaxime Inj 2,000 MG in Dextrose 5% 100 ML IV ONE (00:15)
[2016-12-23] MEDS ORDERED: 0.9% Sodium Chloride 1,000 ML IV ONE (00:15)
[2016-12-23] MEDS ORDERED: CEFTAZIDIME IV ONE (00:34)
[2016-12-23] MEDS ORDERED: DEXTROSE 5% IV ONE (00:34)
[2016-12-23] MEDS: Azithromycin Inj 500 MG in Dextrose 5% w/Vial Mate 250 ML IV ONE ×2 (00:49→01:47)
[2016-12-23] MEDS ORDERED: Polyethylene Glycol (PEG) 17 Gm Powder PO PRN (01:05)
[2016-12-23] MEDS ORDERED: Alum-Mag Hydrox-Simeth 30 mL Suspension PO PRN (01:05)
[2016-12-23] MEDS ORDERED: 0.9% Sodium Chloride 1,000 ML IV SCH (01:35)
[2016-12-23] MEDS ORDERED: Albuterol 2.5 mg/3 mL Inhalation Solution NEB PRN (01:55)
--- NOTE | 2016-12-23 02:19 | PCM.HPMED ---
Subjective Date of Service Dec 23, 2016 Primary Provider: Admitting Physician: Santa Zarate DO Primary Care Physician: Baldev Bragg DO Attending Physician: Santa Zarate DO Chief Complaint: Right foot pain History of Present Illness: Patient is a 26 year old male with a history of sickle cell anemia and polysubstance abuse that is well known at [facility]. He presented to [facility] on with right foot pain. He reports that he has had this since his last admission on 12/03/16-12/10/16. It has been so painful that he cannot wear a shoe. He denies bleeding or purulent material. He believes it may have been somewhat numb but never felt cold and mostly just feels painful. The skin on the toes has appeared thickened and as though it is peeling. He does not feel as though it is particularly swollen. While his right foot is his biggest concern the patient also endorses a more generalized pain sensation that seems to "bounce around" his joints. He states that this is similar to his previous sickle cell crises. He is having fever but no chills. He denies nausea, vomiting, shortness of breath, dysuria, hematuria, cough, chest pain, sore throat. He has been having decreased appetite. While he currently does not admit to recent drug use, in the past his sickle cell crises have been triggered by methamphetamine use. U-tox is pending in the ED. In the ED the patient was afebrile with a heart rate of 134, respiratory rate of 16, blood pressure of 114/73, and O2 saturation of 98% on room air. Labs were remarkable for WBC 10.5, Hgb 10.3, platelets 493, bilirubin 1.8, AST 110, ALT 132. IV fluids and antibiotics started in ED. Patient to be admitted for management of sickle cell crisis and monitored for any complications. Review of Systems: A comprehensive review of systems was conducted with the patient and found to be negative except as above in the history of present illness. Allergies Coded Allergies: No Known Allergies (Unverified , 12/03/16) Home Medications Per H&P by Dr. Pace on 12/03/16: Hydroxyurea 500 mg capsule twice a day Ibuprofen 600 mg every 6 Oxycodone 5 mg immediate release tablet: 30 mg by mouth every 4 as needed for pain PMH Sickle cell anemia Polysubstance abuse including methamphetamines, cocaine, and historically heroin ADHD Chronic lower back pain Surgical History Finger amputation about one year ago secondary to infection Retinal detachment surgery Family History Patient is adopted Social History Hx Alcohol Use: Yes Hx Substance Use: Yes (States using meth two days ago) Hx Tobacco Use: Yes Smoking Status: Current Every Day Smoker (1 PPD for 10 years), Never Smoker Living Arrangement: with Family Exam Vital Signs Vital Sign - Last Date Time Temp Pulse Resp B/P Pulse Ox O2 Delivery O2 Flow Rate FiO2 12/23/16 00:41 123 21 115/59 97 Simple Mask 2 12/23/16 00:00 37.9 Intake and Output 12/22/16 12/22/16 12/23/16 Cumulative From/Thru 15:00 23:00 07:00 12/22/16 20:44 - 12/23/16 00:56 Intake Total 1000 ml 1000 ml 2000 ml Balance 1000 ml 1000 ml 2000 ml Intake IV Total 1000 ml 1000 ml 2000 ml Exam Alert and oriented x3, uncomfortable appearing male Head atraumatic, normocephalic PERRLA, EOMI, sclera anicteric Mucus membranes moist, no oral thrush observed No cervical lymphadenopathy, neck supple, nontender No JVD noted Cardiac tones tachycardic rate and regular rhythm with no murmur appreciated Lungs clear to auscultation bilaterally with adequate respiratory effort No abdominal tenderness, non-distended, normoactive bowel tones, soft; splenomegaly noted in the LUQ Pierre absent Radial pulses normal and equivalent bilaterally, dorsalis pedis pulses normal and equivalent bilaterally No cyanosis, clubbing or edema Skin of right toes does appear thickened and peeling on the dorsal surface; the middle toe and pinky toe seem to be missing their nails with some scabbed over areas near the nail beds; right covering machine tender to touch Significant number of tattoos including his face and neck; missing left ring finger secondary to amputation Cranial nerves appear to be fully intact, normal speech, patient can move upper and lower limbs grossly Patient appears anxious Lab and Diagnostics Result Diagram: 12/22/16213412/22/162134 X-Rays, CTs and MRIs Chest x-ray: Awaiting formal read by radiology. Patient appears to have had some infiltrate in the right base on prior exam. Today, patient appears more rotated in portable film and could be cause of apparent increase in the appearance of this infiltrate. Uncertain if this is the case but would like to plan for short- interval repeat 2-view chest. 12-lead ECG Rate 117 QTc [address] elevations - do not appear to be changed from prior exam. Could represent early repolarization pattern. Assessment & Plan Patient is a 26 year old male with a history of sickle cell anemia and polysubstance abuse that is well known at [facility]. He presented to [facility] on with right foot pain. He reports that he has had this since his last admission on 12/03/16-12/10/16. Patient does appear to be in sickle cell crisis and is admitted for management and monitoring for complications. 1. Acute sickle cell crisis, present on admission. - Patient presents with prominent concern of right foot pain but also lower extremity joint pain. Less likely to be acute chest syndrome as he is not having chest pain, denies cough, has benign lung exam, is able to maintain normal O2 saturation without supplemental O2. Did have fever 38.4 in ED. - Some question of new or increased infiltrate on right lung base. Will repeat two view chest X-ray in the morning to more fully assess. Could also consider CT of the chest. - Due to uncertainty about the chest x-ray currently will continue antibiotics started in ED - ceftazidime and azithromycin. - Pain control will be important in this patient. Will start with Dilaudid IV 1 mg Q2 hours in an effort to get pain under control. Can switch to PO regimen once control achieved. - Benadryl available IV 25 mg Q6H for itching. - Will begin supplemental O2 at 2L via nasal cannula. - Will order incentive spirometry. Recommend 10 breaths every two hours while awake. - Albuterol nebulizer ordered Q2 PRN shortness of breath/wheezing. - Two liters IVF given in ED. Continue NS at 100 ml/hr. - Continue to monitor CBC. - LDH, procalcitonin ordered and pending. - Will currently not plan on blood transfusion as Hgb already at 10. - Uncertain of patient's compliance with hydroxyurea use at home. Will plan to restart his home dosing of 500 mg BID (approx 15 mg/kg/day). 2. Elevated transaminases, acute, present on admission. - Possibly due to hepatitis C and sickle cell crisis. - Patient has known Hepatitis C but has not yet been seen by gastroenterology as an outpatient to pursue treatment. Recommend outpatient follow up. - LDH ordered and pending. - Continue to monitor CMP. 3. Polysubstance abuse, chronic, ongoing. - History of tobacco, methamphetamine, heroin, and cocaine use. 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 - Awaiting U-tox from ED. - Continue to addictions counselor assistant patient about cessation of these substances. Could consider social week consultation for resources for substance abuse counseling. 4. Chronic 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, presume stable. - Reports of possible splenectomy in the future. Recommend outpatient follow up. - Is felt to be enlarged on exam. - Will continue to monitor for thrombocytopenia with CBC. - Antiemetic available PRN. - Antacid available PRN. - Bowel regimen available PRN. Patient admitted under inpatient status with expected length of stay greater than 2 midnights for severity of present symptoms, complexities of treatment plan and risk for adverse events. PCP Baldev Bragg DO Resuscitation Status: CPR: Attempt Resuscitation Attending Statement The patient was seen and examined together with house staff on 12/23/2016 and I agree with the history, exam and plan as outlined in the note above. copies to: BALDEV BRAGG Jennifer E DO Dec 23, 2016 01:37 Santa Zarate DO Dec 23, 2016 03:55
--- NOTE | 2016-12-23 06:42 | NUR ---
Pt admitted for Sickle Cell Anemia with Vaso-Occlusive Crisis. Pt arrived via gurney from ED accompanied by ED RN. Pt ambulated self to hospital bed with SBA. Pt A&O X3 with delayed responses to questions. Tele monitor applied, Tele ST and HR in the 110s. IV in left hand patent. Toes on right foot are black, swollen and pealing, with a bad odor. Pt states that he hasnt used street drugs for 2 weeks, however, ER Drs note states that he used Meth 2 days ago. Pt oriented to room, bed, TV, Telephone and call light system. VS stable. Care ongoing.
--- NOTE | 2016-12-23 08:10 | PCM.PNMED ---
Subjective Date of Service Dec 23, 2016 Subjective He denies cough or shortness of breath. No rhinorrhea. Your vaccine this year. His left anterior rib cage pain which increases with breathing or position. . Chest x-ray indicated infiltrates. His right foot pain greater than medical pain which is somewhat acute on chronic. No ankle swelling. He did have a fever last night. No nausea vomiting diarrhea. No Exam Vital Signs Vital Sign - Last Date Time Temp Pulse Resp B/P Pulse Ox O2 Delivery O2 Flow Rate FiO2 12/23/16 05:52 115 12/23/16 03:35 37.0 16 97/56 93 Room Air 12/23/16 01:29 2 Intake and Output 12/22/16 12/22/16 12/23/16 Cumulative From/Thru 15:00 23:00 07:00 12/22/16 20:44 - 12/23/16 06:03 Intake Total 1000 ml 1674 ml 2674 ml Balance 1000 ml 1674 ml 2674 ml Intake Oral 213 ml 213 ml IV Total 1000 ml 1461 ml 2461 ml # Voids 1 1 # Bowel Movements 1 1 Exam Laboratory 3, fluent speech Returns for supple performance are clear, normal effort Heart S1 without murmur Abdomen soft nontender Extremities are free of edema. Good pedal pulses Many tattoos. No obvious skin rash or lesions. No swallowing joints IVs and Medications Medications Reviewed: Medications were reviewed in detail Lab and Diagnostics Result Diagram: 12/22/16213412/22/162134 X-Rays, CTs and MRIs Chest x-ray: Awaiting formal read by radiology. Patient appears to have had some infiltrate in the right base on prior exam. Today, patient appears more rotated in portable film and could be cause of apparent increase in the appearance of this infiltrate. Uncertain if this is the case but would like to plan for short- interval repeat 2-view chest. 12-lead ECG Rate 117 QTc [address] elevations - do not appear to be changed from prior exam. Could represent early repolarization pattern. Assessment & Plan Patient is a 26 year old male with a history of sickle cell anemia and polysubstance abuse that is well known at [facility]. He presented to [facility] on with right foot pain. He reports that he has had this since his last admission on 12/03/16-1/22/17. Patient does appear to be in sickle cell crisis and is admitted for management and monitoring for complications. 1. Acute sickle cell pain episode, present on admission. Supportive measures with fluids, oxygen and analgesia 2. Possible sickle cell acute chest syndrome, with fever and pulmonary infiltrates. Cameron. Continue ceftazidime and azithromycin, oxygen and analgesia. 3. Chronic hepatitis C, POA 4. Chronic anemia secondary to sickle cell disease, POA. Hematocrits were stable. No indication for transfusion. 5. Polysubstance abuse, chronic, ongoing. - History of tobacco, methamphetamine, heroin, and cocaine use. 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 - Awaiting U-tox from ED. - Continue to mortgage counselor patient about cessation of these substances. Could consider social week consultation for resources for substance abuse counseling. 6. Chronic 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, presume stable. - - Antiemetic available PRN. - Antacid available PRN. - Bowel regimen available PRN. Patient admitted under inpatient status with expected length of stay greater than 2 midnights for severity of present symptoms, complexities of treatment plan and risk for adverse events. PCP Corin Parikh DO Pain Evaluation: Adequate Pain Control Resuscitation Status: CPR: Attempt Resuscitation Time spent 30 minute Michel Harper MD Dec 23, 2016 08:09
[2016-12-23] MEDS: DEXTROSE 5% IV SCH ×2 (08:22→17:08)
[2016-12-23] MEDS: CEFTAZIDIME IV SCH ×2 (08:22→17:08)
--- NOTE | 2016-12-23 08:54 | DRSVH ---
PROCEDURE: X-RAY CHEST ONE VIEW, PORTABLE ([id number]) INDICATIONS: chest pain sickle cell TECHNIQUE: One view of the chest was acquired. COMPARISON: [facility], CR, XR CHEST 1VW (PORTABLE), 12/03/2016, 22:20. FINDINGS: Surgical changes and devices: None. Lungs and pleura: Trace right-sided pleural effusion is noted. Increased opacification noted in the r ight lung base concerning for pneumonia which has progressed in interval since prior examination.. Mediastinum: Mediastinal contours appear normal. Heart size is normal. Bones and chest wall: No suspicious bony lesions. Overlying soft tissues appear unremarkable. IMPRESSION: Findings concerning for right basilar pneumonia with trace parapneumonic effusion. Dictated by: Taylor Wall MD, PhD on 12/23/2016 at 8:50 Approved by: Taylor Wall MD, PhD on 12/23/2016 at 8:52
--- NOTE | 2016-12-23 08:56 | DRSVH ---
PROCEDURE: X-RAY RIGHT FOOT COMPLETE, MINIMUM THREE VIEWS ([id number]) INDICATIONS: rt foot pain TECHNIQUE: 3 views of the foot were acquired. COMPARISON: None. FINDINGS: Bones: No fractures or dislocations. No suspicious bony lesions. No osseous erosions or periosteal reaction are identified. Soft tissues: No tibiotalar joint effusion. Achilles tendon appears normal. IMPRESSION: No sierra evidence of osteomyelitis. Plain film radiographs can be insensitive to osteomy elitis during the initial 15 days of the disease process. If there is clinical concern for osteomyeli tis, then three-phase nuclear medicine bone scan is warranted. Dictated by: Taylor Wall MD, PhD on 12/23/2016 at 8:53 Approved by: Taylor Wall MD, PhD on 12/23/2016 at 8:54
[2016-12-23 11:11] LABS: BASOPHILS % (AUTO) 0.5 % (0-3); EOSINOPHILS % (AUTO) 3.8 % (0-5); MONOCYTES % (AUTO) 13.3 % (4-12); Platelet Count 454 bil/L (150-400)
[2016-12-23 11:33] LABS: Magnesium 1.6 mg/dL (1.6-2.6); Phosphorus 2.7 mg/dL (2.5-4.9)
--- NOTE | 2016-12-23 13:15 | NUR ---
X-ray He left at [facility] 2003 at 1305 via wheelchair to go get a chest x-ray. He returned about 1315 and was settled back into the room. Care continues.
--- NOTE | 2016-12-23 13:30 | DRSVH ---
PROCEDURE: X-RAY CHEST, TWO VIEWS ([id number]) INDICATIONS: sickle cell crisis TECHNIQUE: 2 views of the chest were acquired. COMPARISON: [facility], CR, XR CHEST 1VW (PORTABLE), 12/22/2016, 22:28. FINDINGS: Surgical changes and devices: None. Lungs and pleura: The trace right-sided pleural fluid collection is noted. Right basilar opacity is stable compared to prior examination. Basilar opacity noted. Mediastinum: Mediastinal contours are normal. Heart size is normal. Bones and chest wall: Mixed rounded, lytic foci noted in the humeral heads bilaterally likely repres ent sequela of bone infarcts. Soft tissues appear unremarkable. IMPRESSION: 1. Bibasilar opacities which represent atelectasis, aspiration or pneumonia. Please correlate with clinical and laboratory data. 2. Trace right-sided pleural effusion. Dictated by: Taylor Wall MD, PhD on 12/23/2016 at 13:27 Approved by: Taylor Wall MD, PhD on 12/23/2016 at 13:29
[2016-12-23 13:58] LABS: APPEARANCE,URINE CLEAR (CLEAR,HAZY); COLOR,URINE YELLOW (YELLOW)
[2016-12-23 13:59] LABS: OCCULT BLOOD,URINE NEGATIVE (NEGATIVE); UROBILINOGEN,URINE NORMAL (NORMAL)
--- NOTE | 2016-12-23 16:17 | NUR ---
Social Work note - CD assessment Blane Grissom is a 26 yr old admitted for sickle cell/ vaso occlusive crisis. EMR reviewed: Pt has [employer] and [facility] insurance. His PCP is Dr Pope FINNEY. Readmit score not available. QUALITY ASSURANCE QA LAB ANALYST met with pt - pt lives at home with his mom in [place]. He is independent at baseline - is on disability for his sickle cell. Plans to return to home at d/c. CD Assessment: History of substance use: Pt states that he has been using drugs for several years. He admits to smoking heroin and meth - states that the last time he used was two weeks ago. He denies any ETOH. History of treatment: Pt has been in [facility] for drug treatment - he states that he is wanting to start on methadone but has not followed up with community resources to get an appointment. He is familiar with [facility]. Family hx: Pt states he does not want to talk about his family. Supports: Pt identifies that his mom is a good support - he states she wants him to get clean. He can not identify how he has been clean for the past two weeks. Pt's perception of change - Pt shared that he is on probation for old drug charges - he has failed to report multiple times and he knows that there is a warrant out for his arrest. He states that he is nervous to go to nursing home because he knows he will be in pain and is afraid to hurt. He came to the hospital to get his foot checked out and to try to feel better with plans to turn himself into his PO and face his nursing home time. He states he could be in for 30+ days. QUALITY ASSURANCE QA LAB ANALYST provided support - active listened. He states that he wants to get clean. QUALITY ASSURANCE QA LAB ANALYST provided contact information for methadone clinic and [facility]. QUALITY ASSURANCE QA LAB ANALYST explained that he will have to call on Sunday. Plan: Home with mom in [facility] - resources given for Substance Use referrals. HUDSON Connolly
--- NOTE | 2016-12-23 18:05 | NUR ---
Behavior (Smoking, O2) Smoking - About 0930 staff smelled cigarette smoke in the hallways and traced it to his room with the smell being strongest in the bathroom. An empty cigarette packet was found in the trash. Staff talked to him about this and reminded him of the no smoking in the hospital. Dr. Harper and the charge nurse were made aware. A cigarette engineering supplies sales was later found in his bed and was confiscated after talking to him. It is to be returned upon discharge. O2 - Placed O2 on him via nasal cannula per Dr. Harper's orders. He kept taking it off saying it was uncomfortable in his nose. Staff tried to educate him about the importance of wearing it, but he still refuses to keep it on. Care continues.
[2016-12-23] MEDS ORDERED: 0.9% Sodium Chloride 500 ML IV ONE (19:45)
[2016-12-23] MEDS: 0.9% Sodium Chloride 1,000 ML IV SCH (20:02)
[2016-12-23] MEDS: Azithromycin Inj 500 MG in Dextrose 5% w/Vial Mate 250 ML IV SCH (23:20)
[2016-12-24] VITALS (9 sets, daily range): BP systolic 114–131; BP diastolic 72–86; PULSE 97–117; RESP 12–18; O2SAT 92–96
[2016-12-24] MEDS: DEXTROSE 5% IV SCH ×3 (01:23→17:49)
[2016-12-24] MEDS: CEFTAZIDIME IV SCH ×3 (01:23→17:49)
[2016-12-24] MEDS: HYDROmorphone 1 mg/mL Inj IVPUSH PRN ×7 (01:28→22:40)
[2016-12-24] MEDS: 0.9% Sodium Chloride 1,000 ML IV SCH ×2 (05:45→13:27)
--- NOTE | 2016-12-24 06:10 | NUR ---
Pain and IV's Patients pain level has remained elevated this evening. Patient reports 7-8 out of 10 pain to the right leg. No external signs of pain are present at this time. Patient falls asleep very shortly after being left to rest in his room. Provider informed about the patients pain level. Both of the patients IV's become difficult to flush over several hours. Both IV's became occluded, despite regular flushing and IV fluids infusing. IV therapy was call to place a new IV due to the patient being a known hard IV start and long history of IV drug abuse.
--- NOTE | 2016-12-24 17:27 | NUR ---
Pain He has consistently complained of 6/10 right foot and left rib pain regardless of pain medication administration. Gave 2mg of IV Dilaudid q2 hours until Dr. Harper ordered 10 mg of PO Oxycodone q4 hours. Per his orders he received the Oxycodone every four hours with the Dilaudid two hours after the Oxycodone. When giving him the Oxycodone he said, "These pills don't work for me, can I have the IV instead?" He wanted the IV every two hours instead of staggering the two meds. Told him I would speak to the Dr. Spoke with Dr. Harper on the phone and he said to continue the plan that we had. The patient was displeased in hearing this, but accepted the PO meds after all. Care continues.
[2016-12-24] MEDS: Azithromycin Inj 500 MG in Dextrose 5% w/Vial Mate 250 ML IV SCH (22:42)
[2016-12-25] VITALS (10 sets, daily range): BP systolic 114–135; BP diastolic 61–92; PULSE 109–131; RESP 16–20; O2SAT 91–96
--- NOTE | 2016-12-25 | NUR ---
IV antibiotics and pain. I was informed by the COLLEGE ASSOCIATE that the patient had disconnected his IV antibiotic and thrown the tubing on the ground. When questioned about the IV the patient stated "Ya I took that out, because it was burning my arm." Patient demanded different antibiotics. New IV started and old IV removed. Antibiotic infusion was continued in new IV site. Patient continues to request IV pain medications hourly. Patient being medicated with Oxycodone and Dilaudid. Addendum: 12/25/16 at 0507 by COLBY SON RN Patients antibiotics infused without complication. Patient continued to ask for pain medications every hour. At no point did the point show any external signs of pain and appeared to be rather drowsy at time.
[2016-12-25] MEDS: CEFTAZIDIME IV SCH ×3 (01:37→17:13)
[2016-12-25] MEDS: DEXTROSE 5% IV SCH ×3 (01:37→17:13)
[2016-12-25] MEDS: 0.9% Sodium Chloride 1,000 ML IV SCH ×3 (01:57→21:45)
[2016-12-25] MEDS: HYDROmorphone 1 mg/mL Inj IVPUSH PRN ×7 (02:47→22:59)
[2016-12-25 08:27] LABS: Mean Corpuscular Hemoglobin 26.5 pg (27.0-35.0); Mean Corpuscular Volume 75.1 fL (81-100)
--- NOTE | 2016-12-25 08:45 | PCM.PNMED ---
Subjective Date of Service Dec 24, 2016 Subjective Still with ankle pain and left chest pain.No cough or dyspnea.No N,V,D. Exam Vital Signs Vital Sign - Last Date Time Temp Pulse Resp B/P Pulse Ox O2 Delivery O2 Flow Rate FiO2 12/25/16 03:00 37.3 115 16 118/70 92 Room Air 12/24/16 19:49 Intake and Output 12/24/16 12/24/16 12/25/16 Cumulative From/Thru 15:00 23:00 07:00 12/22/16 20:44 - 12/25/16 05:33 Intake Total 2379 ml 1440 ml 57476 ml Output Total 1475 ml 2200 ml 8125 ml Balance 904 ml -760 ml 2648 ml Intake Oral 2100 ml 1440 ml 7193 ml IV Total 279 ml 3580 ml Output Urine Total 1475 ml 2200 ml 8125 ml # Voids 1 3 # Bowel Movements 1 3 Exam NAD,flataffect Lungs clear CV RRR without murmur Abdomen soft No edema Ankle not swollen or deformed IVs and Medications Medications Reviewed: Medications were reviewed in detail Lab and Diagnostics Result Diagram: 12/25/16 0808 12/23/16 1050 X-Rays, CTs and MRIs Chest x-ray: Awaiting formal read by radiology. Patient appears to have had some infiltrate in the right base on prior exam. Today, patient appears more rotated in portable film and could be cause of apparent increase in the appearance of this infiltrate. Uncertain if this is the case but would like to plan for short- interval repeat 2-view chest. 12-lead ECG Rate 117 QTc [address] elevations - do not appear to be changed from prior exam. Could represent early repolarization pattern. Assessment & Plan 1. Acute sickle cell pain episode, present on admission. Supportive measures with fluids, oxygen and analgesia.He is still in sinificant pain sowe will continue current measures 2. Possible sickle cell acute chest syndrome, with fever and pulmonary infiltrates. Sod. Continue ceftazidime and azithromycin, oxygen and analgesia.RepeatCXR 12/25/16. 3. Chronic hepatitis C, POA.Stable 4. Chronic anemia secondary to sickle cell disease, POA. Hematocrits were stable. No indication for transfusion. 5. Polysubstance abuse, chronic, ongoing. - History of tobacco, methamphetamine, heroin, and cocaine use. 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 - Awaiting U-tox from ED. - Continue to domestic violence counselor patient about cessation of these substances. Could consider social week consultation for resources for substance abuse counseling. 6. Chronic 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, presume stable. - - Antiemetic available PRN. - Antacid available PRN. - Bowel regimen available PRN. PCP Corin Parikh DO Pain Evaluation: Adequate Pain Control Resuscitation Status: CPR: Attempt Resuscitation Time spent 30 minutes Michel Harper MD Dec 25, 2016 08:45
--- NOTE | 2016-12-25 10:14 | DRSVH ---
PROCEDURE: X-RAY CHEST ONE VIEW, PORTABLE ([id number]) INDICATIONS: dyspnea TECHNIQUE: One view of the chest was acquired. COMPARISON: [facility], CR, XR CHEST 1VW (PORTABLE), 12/22/2016, 22:28. [facility], CR, XR CHEST 2VW, 12/23/2016, 12:57. FINDINGS: Surgical changes and devices: None. Lungs and pleura: The trace right-sided pleural fluid collection is noted. Bibasilar airspace opaci ties unchanged. The trace pleural effusions unchanged. Mediastinum: Mediastinal contours are normal. Heart size is normal. Bones and chest wall: Mixed rounded, lytic foci noted in the humeral heads bilaterally likely repres ent sequela of bone infarcts. Soft tissues appear unremarkable. IMPRESSION: 1. Persistent bibasilar airspace opacities likely related to aspiration versus pneumonia and not sign ificantly changed. 2. Small bilateral pleural effusions. Dictated by: Navid Cullen RRA Interpreted: Cyndi Farnsworth MD on 12/25/2016 at 10:13 Transcribed by: DESTIN on 12/25/2016 at 10:14 Approved by: Cyndi Farnsworth M.D. on 12/25/2016 at 12:09
--- NOTE | 2016-12-25 12:26 | NUR ---
Social Work note - Continued D/C plan ORACLE WEBCENTER CONSULTANT met with pt - provided pt with community resources for outpt drug treatment - mainly methadone and suboxone clinics. Pt is connected with [facility]. He however wants to start on medications for withdrawal. ORACLE WEBCENTER CONSULTANT helped Pt call [facility] and pt made a referral for himself. Clinic will call him with time. Pt is not sure where he will go at d/c. He states that his mom thinks he is in [place] and may be mad at him for being in [place]. He plans to turn himself into the police when he is feeling better. He denies any other needs. Plan: To follow up with Suboxone clinic - referral made. They will contact him with appointment time. HUDSON Connolly
--- NOTE | 2016-12-25 12:39 | PCM.PNMED ---
Subjective Date of Service Dec 25, 2016 Subjective He had a low-grade fever last night. Minimal cough. His left-sided chest pain is slightly better today. Increases with deep breathing or movement. His right foot still hurts a lot. X-ray from December unremarkable. Pain is distal to the MTPs and all toes. There is no cyanosis orevidence of embolization to the feet. He denies any dyspnea or chest pain currently. No nausea or vomiting. His appetite is poor. Exam Vital Signs Vital Sign - Last Date Time Temp Pulse Resp B/P Pulse Ox O2 Delivery O2 Flow Rate FiO2 12/25/16 12:00 109 12/25/16 11:56 37.5 18 114/61 93 Room Air 12/24/16 19:49 Intake and Output 12/24/16 12/24/16 12/25/16 Cumulative From/Thru 15:00 23:00 07:00 12/22/16 20:44 - 12/25/16 05:33 Intake Total 2379 ml 1440 ml 73366 ml Output Total 1475 ml 2200 ml 8125 ml Balance 904 ml -760 ml 2648 ml Intake Oral 2100 ml 1440 ml 7193 ml IV Total 279 ml 3580 ml Output Urine Total 1475 ml 2200 ml 8125 ml # Voids 1 3 # Bowel Movements 1 3 Exam Alert oriented 3, fluent speech. More interactive today. Lungs are clear with normal effort and rate. Heart is regular without murmur gallop or rub Abdomen is soft nondistended Extremities are free of edema good pedal pulses. The right foot is unremarkable in appearance other than chronic excoriation of all toes. All toes are warm. There is tenderness which is diffuse nonspecific in all of the toes distal to the MTPs IVs and Medications Medications Reviewed: Medications were reviewed in detail Lab and Diagnostics Result Diagram: 12/25/16 0808 12/25/16 0808 X-Rays, CTs and MRIs Chest x-ray: Awaiting formal read by radiology. Patient appears to have had some infiltrate in the right base on prior exam. Today, patient appears more rotated in portable film and could be cause of apparent increase in the appearance of this infiltrate. Uncertain if this is the case but would like to plan for short- interval repeat 2-view chest. 12-lead ECG Rate 117 QTc [address] elevations - do not appear to be changed from prior exam. Could represent early repolarization pattern. Assessment & Plan 1. Acute sickle cell pain episode, present on admission. Supportive measures with fluids, oxygen and analgesia.He is still in significant pain so we will continue current measures 2. Possible sickle cell acute chest syndrome, with fever and pulmonary infiltrates. [place]. Continue ceftazidime and azithromycin, oxygen and analgesia.Repeat CXR today. 3. Right foot pain. POA. X-ray negative. Concern is for bone infection or bone infarct. CT of the foot will be ordered. 4. Chronic hepatitis C, POA.Stable 5. Chronic anemia secondary to sickle cell disease, POA. Hematocrits were stable. No indication for transfusion. 6. Polysubstance abuse, chronic, ongoing. - History of tobacco, methamphetamine, heroin, and cocaine use. 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 - Awaiting U-tox from ED. - Continue to alcoholic counselor patient about cessation of these substances. Could consider social week consultation for resources for substance abuse counseling. 7. Chronic 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, presume stable. - - Antiemetic available PRN. - Antacid available PRN. - Bowel regimen available PRN. PCP Corin Parikh DO Pain Evaluation: Adequate Pain Control Resuscitation Status: CPR: Attempt Resuscitation Time spent 30 minutes Michel Harper MD Dec 25, 2016 12:39
--- NOTE | 2016-12-25 16:05 | DRSVH ---
PROCEDURE: CT FOOT RIGHT WITHOUT CONTRAST ([id number]) INDICATIONS: foot pain. History of sickle cell disease. TECHNIQUE: Noncontrast 1-1.5 mm axial sections acquired from above the tibiotalar joint to the bottom of the eleanor caneus, with coronal and sagittal reformats. COMPARISON: [facility], CR, XR FOOT 3VW RT, 12/22/2016, 23:14. FINDINGS: Image quality: Diagnostic. Bones: There is no acute fracture or dislocation involving the osseous structures of the right foot. No suspicious osseous lesions are identified. There is a questionable overhanging erosion involving the medial aspect of the head of the proximal phalanx of the great toe (image 38, series 7), better appreciated on the conventional radiographs of the foot dated 12/22/16. The alignment of the osseous s tructures of the foot are within normal limits. The bone mineralization is also within normal limits . No significant degenerative changes of the foot are identified. However, there is sclerosis invol ving the medial sesamoid of the great toe, which is noted to be fragmented or represent a bipartite m edial sesamoid. While not well evaluated on this examination, there is a mottled/heterogeneous appearance of the dist al tibia. Soft tissues: The soft tissues of the foot are within normal limits. No soft tissue masses or locul ated fluid collections are identified. No significant atrophy involving the intrinsic muscles of the foot are evident. Please note that evaluation of the ligamentous and tendinous structures of the fo ot are inadequate on CT. No obvious abnormalities are evident. IMPRESSION: 1. No acute fractures of the foot. 2. Bipartite versus fragmented medial sesamoid of the great toe. Please correlate clinically for pa in within this region to exclude a chronic fracture/sesamoiditis. 3. Possible small periarticular erosion involving the medial head of the proximal phalanx of the gre at toe. While nonspecific, this may be seen in the setting of an inflammatory arthropathy, such as g out or sickle cell arthropathy. Osteomyelitis cannot be excluded. If there is clinical concern for osteomyelitis, please consider MRI of the forefoot with intravenous contrast. 4. Mottled/heterogeneous appearance of the medullary portion of the distal tibia is nonspecific. Ho wever, given the patient's history of sickle cell, the possibility of bone infarctions within this re gion are difficult to exclude. Please consider MRI of the ankle/tibia-fibula for further evaluation. Dictated by: Guillermo Feng M.D. on 12/25/2016 at 14:45 Approved by: Guillermo Feng M.D. on 12/25/2016 at 14:59
--- NOTE | 2016-12-25 19:15 | NUR ---
Pain/CT scan/Febrile Patient a/o x 4, c/o right foot and rib pain 4-7/10, pain meds given prn per patient request. Temp 37.8-38.1, lungs clear, but decreased. Deep breathing teaching given to patient and patient able to give return demo. See vitals, tele ST 100-120's. Patient up indep voiding per urinal. Taking diet fair and drinking fluids well. Patient down to CT for scan of right foot. Will cont poc.
[2016-12-25] MEDS: Azithromycin Inj 500 MG in Dextrose 5% w/Vial Mate 250 ML IV SCH (23:00)
--- NOTE | 2016-12-25 23:14 | NUR ---
Febrile Pt has a tempt of 38.1C No tylenol order due to pt's hx of hepatitis. Asked to remove blankets. Refused fan or washcloth WIll monitor for decreased temp
--- NOTE | 2016-12-25 23:54 | NUR ---
Febrile Pt's temp 38.8C Given ice paks. Removed blankets. Notified MD. Pt c/o a ALVAREZ. He also states that his pain control is inadequate to his right foot and left ribs. I also notified MD of this as well. Care ongoing
--- NOTE | 2016-12-25 23:57 | NUR ---
Oxygen non compliance Pt refuses to wear his nasal canula despite numerous explanations re benefits of oxygen to the body. He states it is "irritating". Refuses a mask. Oxygen is humidified Care ongoing.
[2016-12-26] VITALS (10 sets, daily range): BP systolic 106–116; BP diastolic 62–75; PULSE 113–126; RESP 20–22; O2SAT 90–95
--- NOTE | 2016-12-26 00:32 | NUR ---
Pain Pt currently asleep. Will cont to monitor
[2016-12-26] MEDS: HYDROmorphone 1 mg/mL Inj IVPUSH PRN ×10 (00:52→23:50)
[2016-12-26] MEDS: CEFTAZIDIME IV SCH ×3 (00:56→18:08)
[2016-12-26] MEDS: DEXTROSE 5% IV SCH ×3 (00:56→18:08)
--- NOTE | 2016-12-26 07:52 | PCM.PNMED ---
Subjective Date of Service Dec 26, 2016 Subjective Intermittent fevers. Some rhinorrhea. Minimal cough. His left anterior chest pain is improving. His right foot pain persists. He does have pain mostly in the small toe of the foot. Bilateral toes are also affected. No rhinitis. No nausea vomiting or diarrhea, no abdominal pain. No skin lesions or areas of tenderness. No back pain. Exam Vital Signs Vital Sign - Last Date Time Temp Pulse Resp B/P Pulse Ox O2 Delivery O2 Flow Rate FiO2 12/26/16 04:40 37.0 113 116/73 94 Nasal Cannula 2.00 12/25/16 20:12 20 Intake and Output 12/25/16 12/25/16 12/26/16 Cumulative From/Thru 15:00 23:00 07:00 12/22/16 20:44 - 12/26/16 05:28 Intake Total 3120 ml 2296 ml 55181 ml Output Total 2525 ml 3300 ml 68672 ml Balance 595 ml -1004 ml 2239 ml Intake Oral 1040 ml 1440 ml 9673 ml IV Total 2080 ml 856 ml 6516 ml Output Urine Total 2525 ml 3300 ml 67854 ml # Voids 3 # Bowel Movements 1 4 Exam Alert oriented 3, no distress. Fluent speech. Anicteric sclera. Neck supple. Lungs are clear with normal effort. Heart is regular without murmur. Abdomen soft nontender Extremities are free of edema Good pedal pulses All toes in the right foot are palpated there IS no obvious swelling warmth or fluctuance. Specific joint is more tender. History of rash or lesions, multiple tattoos. IVs and Medications Medications Reviewed: Medications were reviewed in detail Lab and Diagnostics Result Diagram: 12/25/16 0808 12/25/16 0808 X-Rays, CTs and MRIs Chest x-ray: Awaiting formal read by radiology. Patient appears to have had some infiltrate in the right base on prior exam. Today, patient appears more rotated in portable film and could be cause of apparent increase in the appearance of this infiltrate. Uncertain if this is the case but would like to plan for short- interval repeat 2-view chest. 12-lead ECG Rate 117 QTc [address] elevations - do not appear to be changed from prior exam. Could represent early repolarization pattern. Assessment & Plan 1. Acute sickle cell pain episode, present on admission. Supportive measures with fluids, oxygen and analgesia.He is still in significant pain so we will continue current measures 2. Possible sickle cell acute chest syndrome, with fever and pulmonary infiltrates. [place]. Continue ceftazidime and azithromycin, oxygen and analgesia.Repeat CXR today. 3. Right foot pain. POA. X-ray negative. Concern is for bone infection or bone infarct. CT of the foot is fairly nonspecific but suggested possible distal tibia bone infarct which is not an area of tenderness. There is also area of abnormal bone signal in the great toe which is not the most tender area of the foot. O order MRI of the foot today. 4. Persistent fevers, POA. This patient has had multiple blood cultures which are negative. We will add a respiratory PCR and a 2-D echo today. We will also ask for infectious disease consultation. Continue azithromycin and ceftazidime. 5. Chronic hepatitis C, POA.Stable 6. Chronic anemia secondary to sickle cell disease, POA. Hematocrits were stable. No indication for transfusion. 7. - History of tobacco, methamphetamine, heroin, and cocaine use. 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 - Awaiting U-tox from ED. - Continue to cruise counselor patient about cessation of these substances. Could consider social week consultation for resources for substance abuse counseling. Spoke with him today. He states his last history of IV drug use is over 5 months ago part. This is prior to going to rehabilitation for 30 days. He has smoked methamphetamine twice or 3 times since then but no IV drug use. 7. Chronic 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, presume stable. - - Antiemetic available PRN. - Antacid available PRN. - Bowel regimen available PRN. PCP Corin Parikh DO Pain Evaluation: Adequate Pain Control Resuscitation Status: CPR: Attempt Resuscitation Time spent 30 minutes Michel Harper MD Dec 26, 2016 07:52
[2016-12-26 08:56] LABS: Mean Corpuscular Hemoglobin 26.7 pg (27.0-35.0); Mean Corpuscular Volume 76.8 fL (81-100)
[2016-12-26] MEDS: 0.9% Sodium Chloride 1,000 ML IV SCH ×3 (09:02→23:49)
--- NOTE | 2016-12-26 15:23 | DRSVH ---
Formerly [facility] [address] [place] [address] Echocardiogram Report Name: MAYE MENDEZ JStudy Date: 12/26/2016 Height: 71 in Hospital Exam Location: [facility] Weight: 174 lb Gender: Male BSA: 2.0 m2 : 1990 Age: 26 yrs BP: 111/65 mmHg Reason For Study: FEVER Ordering Physician: Performed By: Roberto Dowell Referring Physician: Moreno BRAGG Interpretation Summary The left ventricle is normal in size. Left ventricular systolic function is normal without focal wall motion abnormalities. The ejection fraction is estimated to be 60-65%. The right ventricle is normal in size and function. Pulmonary artery pressures cannot be estimated because of the lack of a measurable TR jet velocity. There is mild biatrial enlargement. There is no significant valvular heart disease. The aortic root is normal size. Compared to the prior echo report on 09/05/2016, there is no significant change. Procedure: A two-dimensional transthoracic echocardiogram with color flow and Doppler was performed. The study quality was technically good. Comparison is made with the echocardiogram of 09/05/16. The patient was in normal sinus rhythm during the exam. The patient was tachycardic with a heart rate of 93- 133 beats per minute. Left Ventricle: The left ventricle is normal in size. There is normal left ventricular wall thickness. A false chord is noted (normal variant). Left ventricular systolic function is normal without focal wall motion abnormalities. The ejection fraction is estimated to be 60-65%. Right Ventricle: The right ventricle is normal in size and function. Atria: There is mild biatrial enlargement. The interatrial septum is intact with no evidence for an atrial septal defect. Mitral Valve: The mitral valve is normal in structure and function. There is no mitral regurgitation noted. Aortic Valve: The aortic valve is normal in structure and function. The aortic valve is trileaflet. The aortic valve opens well. No aortic regurgitation is present. Tricuspid Valve: The tricuspid valve is normal in structure and function. Pulmonary artery pressures cannot be estimated because of the lack of a measurable TR jet velocity. There is a trace or physiologic amount of tricuspid regurgitation. Pulmonic Valve: The pulmonic valve is normal in structure and function. There is trace pulmonic regurgitation. There is no significant valvular heart disease. Great Vessels: The aortic root is normal size. The dimensions of the ascending aorta are normal. The pulmonary artery is normal size. The IVC is of normal diameter and collapses less than 50% with a sniff. This suggests a right atrial pressure of 8 mm Hg. Pericardium/ Pleura There is no pericardial effusion. There is no pleural effusion. MMode/2D Measurements & Calculations LVIDd: 4.8 cm LA dimension: 4.1 cm RA long axis Ao root diam LVIDs: 3.4 cm FS: 28.1 % LA A2 area: 23.2 cm RA area Aortic Jxn: 2.6 cm EPSS: 0.74 cm LA A4 area: 25.6 cm asc Aorta Diam IVSd: 0.95 cm LA length (vol) : 21.1 cm LVPWd: 0.86 cm RA vol Ao Arch Diam (Prox LA vol: 79.1 ml : 73.2 ml Trans): 2.9 cm LA vol index RA : 36.8 mm2 IVC diam: 1.4 cm LV matos. diameter/BSA LV sys. diameter/BSA RVD1 (basal) (cm/m^2): 2.4 (cm/m^2): 1.7 Doppler Measurements & Calculations Ao V2 max MV E max paulo MV E/A: 0.99 PA V2 max : 169.2 cm/sec : 73.6 cm/sec MV A dur: 0.07 sec : 103.8 cm/sec Ao max PG MV A max paulo PA mean PG : 11.5 mmHg : 74.2 cm/sec Ao mean PG PA Accel Time : 6.6 mmHg : 0.12 sec MV dec time Ao V2 mean PA V2 mean : 0.12 sec : 124.8 cm/sec : 76.8 cm/sec Ao V2 VTI: 22.1 cm PA pr(Accel) : 24.1 mmHg Reading Physician:YAMIL
--- NOTE | 2016-12-26 16:39 | CONS ---
[address] [address] CONSULTATION REPORT PATIENT: MAYE MENDEZ : 1990 MR#: [id number] ADMIT: 12/23/2016 JOB ID: [id number] DATE OF SERVICE: 12/26/2016 INFECTIOUS DISEASE CONSULTATION: I thank Dr. Harper for this timely consult. REASON FOR CONSULTATION: Fever and sickle cell arthropathy. HISTORY OF THE PRESENT ILLNESS: The patient is a complex 26-year-old gentleman with sickle cell anemia, ongoing cigarette smoking, and a history of polysubstance abuse who is well known to this hospital and to me. He was admitted last month with severe pain in his right foot as well as other areas of the skeleton. He gradually improved but towards the end of that admission his pain was strictly limited to the lateral four toes on his right foot. It appeared, at that time, that this was sickle cell involvement of the toes rather than a true infection and we eventually decided to discontinue all antibiotics and the patient was sent home roughly two weeks ago without antibiotics. He reports that since his discharge he has continued to have pain in all five toes really on the right foot. This pain improved for a bit about the time of his discharge a couple weeks ago and then was relatively well controlled for a few days, but now has become increasingly severe. This is starting to cause him trouble with ambulation. In addition to the pain in the toes of the right foot, he has also developed some left-sided anterior chest wall pain which is worse with deep inspiration. He was readmitted to this facility on December 23 with these complaints of increasing pain in the right foot toe and left anterior chest. A chest x-ray raised the question of infiltrates and the possibility of chest syndrome. A dreaded complication of sickle-cell, was raised. The patient was started empirically on broad-spectrum antibiotics including azithromycin and ceftazidime. While receiving these antibiotics, the patient states that there has been very little change in the symptomatology in his right foot or his left chest. The patient tells me that though others have told them he has a fever he himself has never fell febrile during his two weeks or so out of the hospital. He also denies firmly that he has had any chills or sweats. He denies any cough or significant shortness of breath though he has had the pain in the left anterior chest since shortly after his admission, and it has been steadily worsening until this readmission three days ago. He has had no significant abdominal or genitourinary symptoms. PAST MEDICAL HISTORY: 1. Sickle cell anemia with multiple admissions. 2. Polysubstance abuse including heroin and amphetamines. Note that at the time of his last admission in mid November, he adamantly stated he had not used any meth in a long period of time but his urine tox screen was positive on that occasion. 3. ADHD. 4. Chronic back pain. HOME MEDICATIONS: Include hydroxyurea. SOCIAL HISTORY: The patient reports he does not drink alcohol. He is an every day smoker and he lives with his family in [facility]. He denies use of intravenous or any other illicit drugs over the past month or more. FAMILY HISTORY: Noncontributory as the patient is adopted. REVIEW OF SYSTEMS: The patient tells me he has no headache at this point. No visual disturbance and no sore throat. He denies stiff neck. He states he has no cough and is not short of breath, but he does have some left chest pain which seems to be worse with deep inspiration. There has been no hemoptysis. He has not noticed swollen lymph nodes. No nausea, vomiting or diarrhea. No dysuria, urgency or frequency. His shoulders, elbows, hips and knees have been relatively pain free but he has had severe pain as noted in all five toes on the right foot. Remainder of the review of systems is negative. PHYSICAL EXAMINATION: Reveals an afebrile gentleman at this time. Temperature 37.2. Over the past 72 hours or so since admission, he has had fevers as high as 38.8 including yesterday near midnight when he was at that highest temperature. His pulse is currently 115, respiratory rate 20, blood pressure 110/62. He is saturating 92% on room air. Examination of the patient's mental status reveals it to be clear. His eyes are without conjunctivitis. His oral cavity without thrush or pharyngitis. There are no ulcerations. His neck is supple and without notable adenopathy or JVD. His lungs are fairly clear to auscultation bilaterally. Cardiac tones: Regular rate and rhythm with soft systolic murmur. His right chest is tender just below the left nipple by his report, but there does not appear to be any lesion present, but with palpation or pressure there does appear to be an area tenderness there. His abdomen is soft and nontender. There is no evidence for organomegaly or ascites. examination is unremarkable. There is no suprapubic fullness. The patient does not have a Pierre. His shoulders, elbows and knees appear normal without synovitis or without any pain to palpation. He has no significant skin rash but he is darkly pigmented so it is difficult to tell. Neurologically, the patient is completely intact with good strength throughout. His right foot is notable for some slight swelling of all five toes with some maceration or slough of the skin or peeling of the skin around the five toes. They are perhaps slightly larger than the opposite members on the left foot and a bit tender to deep palpation. They do not appear to be erythematous and there is no weeping or purulence. The overall impression is that the toes are not infected. The patient has intact sensation in his lower extremities. LABORATORIES: Include white count 15,300, platelet count 402,000. Creatinine 0.69. AST is 57. ALT is 84. Alk phos 141, bilirubin is 1.7. His procalcitonin since readmission, the only measurement we have is 0.16, which is actually lower than when he left. Toxicology on the last admission was positive for amphetamine. Apparently has not been repeated this time. Urinalysis without white cells. QuantiFERON Gold done during the last admission was negative. RPR was negative during the last admission. The patient is known to have hep C and during the last admission, a quantitative hep C viral load of 3000 was obtained. His hepatitis C is genotype IA. Micro studies include negative blood cultures. Multiple sets have been obtained since admission. Negative respiratory viral PCR panel. Negative rapid flu screen. The patient's most recent chest x-ray was done yesterday. It shows persistent bibasilar infiltrates likely related to aspiration. A prior chest x-ray done on the was read bibasilar infiltrates which could represent atelectasis or aspiration or pneumonia. Also noted by the radiologist was that there could be a pulmonary infarction. A CT scan of the right foot done yesterday shows no acute fractures. There is a small erosion in the medial head of the proximal phalanx of the great toe. While nonspecific the radiologist say this could be due to sickle cell arthropathy, inflammatory arthropathy such as gout or osteo. They recommended an MRI, and in fact, that is going to be done later today. There is also a mottled appearance of the distal tibia which likely represents a bone infarction. IMPRESSION: As was the case during patient's last admission and prior admissions, it is unclear whether or not his fevers are due to sickle cell crisis itself or whether or not he may have some localized infection. Today, the patient once again presents with relatively little in the way of focal evidence of infection such as meningitis, otitis media, pneumonia or gastrointestinal infection. If he does indeed have an infection, it would seem most likely to involve the toes of the right foot. As I had noticed during the last time I saw the patient, during his November admission, this is quite an unusual appearance. Sickle cell arthropathy can occur in the fingers or toes but this is typically seen in very small children rather than adults and so I find it difficult to ascribe his current findings strictly to the sickle cell. On the other hand, it is very unusual to have an infection, perhaps even an osteomyelitis, involving multiple digits on one hand or foot at the same time. Overall I would think this is likely to be a vascular phenomenon without infection related to sickle cell but I agree with Dr. Harper that we should cover him with antibiotics while we attempt to sort this out. RECOMMENDATIONS: 1. We await the MRI scan of the right foot. 2. We await the final report on the blood cultures. 3. Will continue to follow this complex patient with you. He certainly presents a wide variety of management difficulties including his ongoing cigarette smoking and very frequent visits to the emergency department here and at other hospitals in the area. Thank you very much for this consult.
--- NOTE | 2016-12-26 18:14 | DRSVH ---
PROCEDURE: MRI FOREFOOT RIGHT WITH AND WITHOUT CONTRAST ([id number]) INDICATIONS: RIGHT FOOT PAIN TECHNIQUE: Noncontrast sagittal T1 spin echo and T2 fast spin echo with fat saturation, long-axis T1 spin echo a nd T2 fast spin echo with fat saturation; short-axis T1 spin echo, proton density fast spin echo, and T2 fast spin echo with fat saturation through the forefoot. Post-contrast short axis, long axis, an d sagittal T1 spin echo with fat saturation through the forefoot. COMPARISON: [facility], CT, CT FOOT RT WO CON, 12/25/2016, 15:19. FINDINGS: Image quality: There are motion artifacts degrading images. Bones and joints: There is bone marrow edema in the first distal phalanx and the first proximal phal angeal head. On contrast enhanced images, there is corresponding subtle increased enhancement. Increa sed T2 signal in the proximal fifth metatarsal shaft is noted. There is bipartite medial sesamoid of the great toe. There is edema in the medial sesamoid. No metatarsophalangeal joint degeneration. No intraosseous lesions. Soft tissues: No suspicious soft tissue enhancement. The visualized plantar foot muscles demonstrat e normal signal and bulk. Visualized flexor and extensor tendons appear intact, without tenosynoviti s. No soft tissue ganglion cysts or bursal fluid collections. Sagittal images demonstrate no eviden ce for plantar plate tears. IMPRESSION: 1. Marrow edema and subtle increased enhancement in the first distal phalanx and the first proximal p halangeal head. This finding could be secondary to acute phase bone infarct related to sickle cell di sease or infection (osteomyelitis). Recommend clinical correlation. 2. Mild increased T2 signal in the proximal fifth metatarsal shaft. Differential diagnoses include yara ne infarct versus mild stress reaction. 3. Bipartite of the medial sesamoid. There is bone edema in the medial sesamoid. The finding may be s econdary to sesamoid dysfunction. 4. Suboptimal examination due to motion artifacts. Dictated by: Cyndi Farnsworth M.D. on 12/26/2016 at 18:05 Transcribed by: JENNIE on 12/26/2016 at 18:13 Approved by: Cyndi Farnsworth M.D. on 12/27/2016 at 11:04
--- NOTE | 2016-12-26 18:51 | NUR ---
Pain/Febrile/MRI Patient a/o x 3, c/o right foot pain freq, meds given prn. Bilat feet warm to touch with palpable pulses. Patient amb indep, steady gait. Max temp 38.8, tele ST 120-150's, Md aware and ID MD in to consult patient. Echo done and patient down to MRI this evening. Patient taking diet fair. BM x 1 voiding per urinal. Will cont poc.
[2016-12-26] MEDS: Azithromycin Inj 500 MG in Dextrose 5% w/Vial Mate 250 ML IV SCH (23:54)
[2016-12-27] VITALS (9 sets, daily range): BP systolic 103–118; BP diastolic 59–74; PULSE 110–129; RESP 16–20; O2SAT 90–97
[2016-12-27] MEDS: CEFTAZIDIME IV SCH ×2 (01:12→09:30)
[2016-12-27] MEDS: DEXTROSE 5% IV SCH ×2 (01:12→09:30)
[2016-12-27] MEDS: HYDROmorphone 1 mg/mL Inj IVPUSH PRN ×9 (02:26→23:38)
--- NOTE | 2016-12-27 06:30 | NUR ---
Shift Note 7p-7a Pt up ambulating in hallways and in room independently with IV pole, Pt walking w/o a limp, and doesnt seem to be in any acute distress or pain while walking. Cigarette ashes found on Pts toilet seat, and Pts belongings in the closet were noted to be tossed about. Security notified and Locker locked up, for safety. Pt had high man out in his room when Security came to lock to the closed, Web Sizer also locked up in closet another Web Sizer in med drawer. No c/o chest pain, Tele ST 100-120s at rest, HR increases up 140-150s with activity. Pt up in room standing and using Hospital computer, Pt was reminded not to use computer, computer turned off between Nursing checks. 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 But, Pt medicated with PRN pain medications frequently. VS stable and was febrile only once with Temp 37.8 C. RA sats 93-95%. Pts disconnected his own IV and turned IV pump off, during the night, then IV went bad and had to be replaced. Questionable about Pt tampering with his IV site, 4th IV site in past 4-5 days.
--- NOTE | 2016-12-27 10:23 | PROG NOTE ---
[address] [address] PROGRESS NOTE PATIENT: MAYE MENDEZ : 1990 MR#: [id number] ADMIT: 12/23/2016 JOB ID: [id number] DATE: 12/27/2016 INFECTIOUS DISEASE FOLLOWUP NOTE: REASON FOR FOLLOWUP: Fever with sickle cell crisis. INTERVAL HISTORY: The patient reports he has periods where he feels quite warm, though he is not clear if he has a fever or not during those episodes. He has no chills. He denies sore throat or confusion. No significant cough or shortness of breath, though with deep inspiration he still has some left chest wall pain. No nausea, vomiting, diarrhea, or dysuria. The toes on his right foot continue to be quite painful, as they have been for weeks now. His temperature is 37.2, but he was as high as 38.8 yesterday afternoon. Pulse still about 115, respiratory rate 20, blood pressure 118/66. He is saturating well on room air. The patient's mental status is clear. His oral cavity without thrush or pharyngitis. His lungs are clear. His left chest wall is a bit tender, even to deep palpation. The abdomen is soft and nontender. Toes on the right foot continue to be swollen somewhat and slightly tender but in a diffuse, non-severe pattern. LABORATORIES: Include white count 15,000, platelet count 402. Creatinine 0.69. Albumin 3.6. Procalcitonin 0.16 and that was four days ago. It has not been repeated yet. Urinalysis negative. Cultures include negative blood cultures, negative nasopharyngeal PCR studies. IMAGING: Included the foot MRI that was done yesterday that shows no evidence really of infection. There was a mildly increased signal in the proximal 5th metatarsal shaft with a differential diagnosis of bone infarct versus a stress reaction. IMPRESSION: This is one in a series of admissions for this patient characterized by sickle cell crisis with unexplained fever. At this point, I see no evidence for ongoing infection, as there is no evidence for pharyngitis, meningitis, pneumonia, GI process, or UTI. The pain and swelling in the toes of the right foot have been going on now for weeks, and I think this is clearly related to his sickle cell rather than infection. RECOMMENDATIONS: 1. I would discontinue antibiotics at this time and observe the patient. 2. Note that the patient has already received five full days of broad-spectrum antibiotics without a clear source. 3. I would strongly consider heme/onc consult in this complex hematology patient who has been admitted very frequently recently. 4. Repeat procalcitonin will be ordered. 5. I will see this patient again tomorrow and once again re-evaluate his fever curve and infectious disease status.
[2016-12-27] MEDS: 0.9% Sodium Chloride 1,000 ML IV SCH ×2 (13:07→23:47)
--- NOTE | 2016-12-27 15:42 | PCM.PNMED ---
Subjective Date of Service Dec 27, 2016 Subjective Patient was examined at bedside today. Patient denies any chest pain, shortness of breath, nausea, vomiting, diarrhea. Patient currently complains only of left-sided rib pain and right foot pain and swelling. Exam Vital Signs Vital Sign - Last Date Time Temp Pulse Resp B/P Pulse Ox O2 Delivery O2 Flow Rate FiO2 12/27/16 12:30 36.9 111 18 103/66 92 Room Air 12/26/16 04:40 2.00 Intake and Output 12/26/16 12/26/16 12/27/16 Cumulative From/Thru 15:00 23:00 07:00 12/22/16 20:44 - 12/27/16 04:31 Intake Total 2113 ml 2393 ml 59296 ml Output Total 1700 ml 2150 ml 49253 ml Balance 413 ml 243 ml 2895 ml Intake Oral 1050 ml 1476 ml 83163 ml IV Total 1063 ml 917 ml 8496 ml Output Urine Total 1700 ml 2150 ml 01954 ml # Voids 3 # Bowel Movements 0 4 Exam Physical Exam: GEN: Patient was awake, alert, responding appropriately to questions HEENT: PERRLA, EOMI, Neck soft supple, trachea midline, nomocephalic/atraumatic CV: +S1/S2, tachycardia, no murmurs auscultated Respiratory: CTAB, no wheezes, rales, rhonchi GI: +bowel sounds x4, soft, compressible, non TTP EXT: no c/c, right great toe and second toe partial skin peeling, right foot mild edema in the arch of the foot Neuro: CN II-XII grossly intact Psych: mood and affect were appropriate Osteopathic structural exam Ribs 6 through 7 inhaled on the left IVs and Medications Medications Reviewed: Medications were reviewed in detail Lab and Diagnostics Result Diagram: 12/26/16 0843 12/26/16 0843 X-Rays, CTs and MRIs Chest x-ray: Awaiting formal read by radiology. Patient appears to have had some infiltrate in the right base on prior exam. Today, patient appears more rotated in portable film and could be cause of apparent increase in the appearance of this infiltrate. Uncertain if this is the case but would like to plan for short- interval repeat 2-view chest. 12-lead ECG Rate 117 QTc [address] elevations - do not appear to be changed from prior exam. Could represent early repolarization pattern. Assessment & Plan 26-year-old male with sickle cell crisis and fever Acute sickle cell pain episode, present on admission. -Continue Supportive measures with fluids, oxygen and analgesia. Possible sickle cell acute chest syndrome, with fever and pulmonary infiltrates. -Discontinue ceftazidime and azithromycin as per recommendations from ID - Oxygen and analgesia - Repeat CXR today. Right foot pain. POA. -X-ray negative - Concern is for bone infection or bone infarct. CT of the foot is fairly nonspecific but suggested possible distal tibia bone infarct which is not an area of tenderness. There is also area of abnormal bone signal in the great toe which is not the most tender area of the foot. - MRI of the foot suggestive of osteomyelitis versus bone infarct secondary to sickle cell Persistent fevers, POA. -This patient has had multiple blood cultures which are negative. -Viral PCR negative -2-D echo yesterday relatively unchanged from previous echo no acute valvular processes noted. -Infectious disease consulted suggest discontinuing antibiotics and consultation hematology oncology Chronic hepatitis C, POA. 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 -Hemoglobin and hematocrit currently stable -We will continue to monitor History of tobacco, methamphetamine, heroin, and cocaine use. 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 - U-tox from ED not done -Will order a urine tox - Continue to family life counselor patient about cessation of these substances. -Social work following the patient currently is refusing any resources for substance abuse counseling. It was reported that the patient stated that his last history of IV drug use was over 5 months ago. This is prior to going to rehabilitation for 30 days. He has smoked methamphetamine twice or 3 times since then but no IV drug use. 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 Right-sided rib pain -Most likely secondary to somatic dysfunction of the ribs -Could also be secondary to the patient's sickle cell crisis however the patient responded well to OMT with decreased pain. - Antiemetic available PRN. - Antacid available PRN. - Bowel regimen available PRN. Disposition: Patient has been febrile and running away blood cell count. Infectious disease has been consulted and suggested since an infectious etiology has not been able to be found that we should discontinue any IV antibiotics at this time. Because the patient is such a complex case and has chronic anemia and hematology oncology (Dr. George) will be consulted on this case as well. At this time we will continue pain management for this patient for the sickle cell crisis. May consider consulting podiatry for possible osteomyelitis but at this time the patient's symptoms still seem to be consistent with sickle cell crisis. Resuscitation Status: CPR: Attempt Resuscitation Sailaja Rashid DO Dec 27, 2016 15:40
--- NOTE | 2016-12-27 15:42 | PCM.PROC ---
Procedure Note Procedure: Procedure: Osteopathic Manipulative Treatment Subjective: Patient was complaining of left-sided rib pain. Patient is currently in a sickle cell crisis however the patient states that the pain is worse with deep breaths and twisting movements. The patient states that lying still improves the pain. Risks and benefits of OMT were explained to the patient and verbal consent obtained. Osteopathic Structural Exam: Ribs: Inhaled ribs 6 through 7 on the left Patient responded well to treatment stating that the pain significantly improved after treatment. Osteopathic treatment modalities used: Sailaja Miles DO Dec 27, 2016 15:42
--- NOTE | 2016-12-27 19:46 | NUR ---
Pain/Ambulation Pt. has been requesting PRN pain medication dilaudid q2, oxycodone q4hrs, and benadryl q6 hours throughout shift. Pt. states foot pain 3/10 and sometimes 4/10 with a comfortable level of 1/10 pain. Pt. this morning ambulated outside the unit independently knowing the boundaries of distance due to being on tele. Pt. then was then reported to be asking for cigarettes from other people walking the halls. Pt. was told by charge nurse that next time he walks he needs to have a escort if he continues to be asking for cigarettes.
[2016-12-28] VITALS (8 sets, daily range): BP systolic 106–125; BP diastolic 59–73; PULSE 108–118; RESP 16–20; O2SAT 91–95
[2016-12-28] MEDS: HYDROmorphone 1 mg/mL Inj IVPUSH PRN ×9 (01:32→22:48)
--- NOTE | 2016-12-28 05:47 | NUR ---
Pain Meds / Nicotine Withdrawal / Tele / Lab refusal Verbal order for Dilaudid 1mg Q 3 hours for prn pain, order did not have route on how the meds were to be given, Pharmacy refused to fill until medication clarified, Day MD no longer available. Night Hospitalist notified and order placed as PO Dilaudid 1mg for breakthrough pain Q 3 hours prn, and was administered during the night with good temporary relief of pain in addition to his other PRN pain med regime. Pt c/o pain frequently, Pt on his call light almost every hour asking for pain meds all night. PRN pain meds given as frequently as ordered to administer, throughout the night. Pt's pain level down to 2-5 out of 10 in right foot tonight. Pt c/o Nicotine withdrawals, very restless with intermittent shakes and sweats, Pt up walking several times tonight, no limp noted. notified and new order for Nicotine patch and was applied to left Deltoid. No c/o chest pain, Tele ST with occ PVC's. HR 100-120s at rest and up to 140s with activity, then back to baseline at rest. Pt refusing his AM lab draws until around 0800 this AM.
[2016-12-28 07:37] LABS: Mean Corpuscular Hemoglobin 26.3 pg (27.0-35.0); Mean Corpuscular Volume 75.8 fL (81-100)
[2016-12-28] MEDS: 0.9% Sodium Chloride 1,000 ML IV SCH ×2 (09:45→19:45)
--- NOTE | 2016-12-28 12:54 | PROG NOTE ---
[address] [address] PROGRESS NOTE PATIENT: MAYE MENDEZ : 1990 MR#: [id number] ADMIT: 12/23/2016 JOB ID: [id number] DATE: 12/28/2016 INFECTIOUS DISEASE FOLLOWUP NOTE: REASON FOR FOLLOWUP: Painful toes on right foot in a sickle cell crisis; infection versus infarction. INTERVAL HISTORY: The patient reports the pain on the four lateral toes on the right foot continues to be moderately severe. He notes that the great toe on that foot is not painful but rather feels numb and the numbness and pain in the toes on the right foot gives him some trouble with ambulation and standing. He has no fevers and no chills that he is aware of, though he says the nurses sometimes tell him he has fevers, but this is news to him. He has no chills or sweats. He notes he has no cough and is not short of breath per se, but does report now bilateral rib pain which gets worse with deep inspiration. Recall that previously had rib pain only on the left. No nausea vomiting or diarrhea. PHYSICAL EXAMINATION: Reveals an afebrile gentleman whose last elevated temperature was 40 hours ago; temperature is currently 37 degrees. Blood pressure 125/69, his pulse is 110, his respiratory rate is 18, he is saturating 93% on room air. He is in no acute distress but his mood is clearly decreased. His eyes without change. Oral cavity benign. Lungs with crackles at both bases. The chest wall is nontender on either side. The cardiac tones are regular rate and rhythm. The abdomen is soft and nontender. The toes on the right foot continue to be slightly swollen and minimally tender with palpation. There is no focality to the exam of these toes rather they are all slightly big and slightly tender. No purulence can be obtained and the patient does have full range of motion of all the toes. LABORATORIES: Include a white count 11,000, platelet count 423,000. Creatinine 0.79. LFTs notable for an ALT which is down to 54, near normal and improving. Bilirubin, ALT, and alk phos are already normal. Procalcitonin 0.23. Urinalysis without white cells. Blood cultures negative. The foot MRI was previously reviewed. It shows enhancement in the first toe, possibly consistent to a bone infarct related to sickle cell or early osteo. 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 IMPRESSION: My continued suspicion is that the patient does not have an infection. He has had low-grade fevers before on prior admissions which we have felt were due to the sickle cell directly and there has been no evidence of focal bacterial infection here. The only question would be whether we think the toes on the right foot are infected or not. My sense is that they are not, but this is a difficult negative to prove obviously. It would be quite unusual for him to have simultaneous infection of all five toes on 1 foot and I think some vaso-occlusive or sickle cell related infarct phenomena would make more sense. RECOMMENDATIONS: 1. No antibiotics at this time. 2. I would consider a hematology consult in this patient. 3. Will continue to closely follow this patient with you as this is a very difficult case and committing him to a long course of antibiotics would not be without risk, whereas missing osteomyelitis of course in the toes could lead to devastating consequences as well.
--- NOTE | 2016-12-28 15:42 | PCM.PNMED ---
Subjective Date of Service Dec 28, 2016 Subjective Patient was examined at bedside today. Patient denies any chest pain, shortness of breath, nausea, vomiting, diarrhea. Patient still complains of right foot pain and states that his left-sided rib pain improved today. Exam Vital Signs Vital Sign - Last Date Time Temp Pulse Resp B/P Pulse Ox O2 Delivery O2 Flow Rate FiO2 12/28/16 12:07 36.8 108 18 108/71 95 Room Air 12/26/16 04:40 2.00 Intake and Output 12/27/16 12/27/16 12/28/16 Cumulative From/Thru 15:00 23:00 07:00 12/22/16 20:44 - 12/28/16 04:33 Intake Total 1680 ml 4528 ml 87268 ml Output Total 1950 ml 950 ml 00220 ml Balance -270 ml 3578 ml 6203 ml Intake Oral 1680 ml 2200 ml 73905 ml IV Total 2328 ml 16874 ml Output Urine Total 1950 ml 950 ml 47378 ml # Voids 3 # Bowel Movements 0 4 Exam Physical Exam: GEN: Patient was awake, alert, responding appropriately to questions HEENT: PERRLA, EOMI, Neck soft supple, trachea midline, nomocephalic/atraumatic CV: +S1/S2, tachycardic, no murmurs auscultated Respiratory: CTAB, no wheezes, rales, rhonchi GI: +bowel sounds x4, soft, compressible, non TTP EXT: no c/c/e, right foot swelling improved from yesterday, so positive for peeling of the skin in the great toe, right foot is tender to palpation in the lateral 4 metatarsal areas. Neuro: CN II-XII grossly intact Psych: mood and affect were appropriate IVs and Medications Medications Reviewed: Medications were reviewed in detail Medications Current Medications Hydromorphone HCl 1 mg Q3H PRN PO Last administered on 12/28/16 14:56; Admin Dose 1 MG; Start 12/27/16 at 23:20 Nicotine 1 patch DAILY TOPICAL Last administered on 12/28/16 03:21; Admin Dose 1 PATCH; Start 12/28/16 at 02:40 Lab and Diagnostics Result Diagram: 12/28/16 0710 12/28/16 0710 X-Rays, CTs and MRIs Chest x-ray: Awaiting formal read by radiology. Patient appears to have had some infiltrate in the right base on prior exam. Today, patient appears more rotated in portable film and could be cause of apparent increase in the appearance of this infiltrate. Uncertain if this is the case but would like to plan for short- interval repeat 2-view chest. 12-lead ECG Rate 117 QTc [address] elevations - do not appear to be changed from prior exam. Could represent early repolarization pattern. Assessment & Plan 26-year-old male with sickle cell crisis and fever Acute sickle cell pain episode, present on admission. -Continue Supportive measures with fluids, oxygen and analgesia. Possible sickle cell acute chest syndrome, with fever and pulmonary infiltrates. -Discontinue ceftazidime and azithromycin as per recommendations from ID - Oxygen and analgesia Right foot pain. POA. -X-ray negative - Concern is for bone infection or bone infarct. CT of the foot is fairly nonspecific but suggested possible distal tibia bone infarct which is not an area of tenderness. There is also area of abnormal bone signal in the great toe which is not the most tender area of the foot. - MRI of the foot suggestive of osteomyelitis versus bone infarct secondary to sickle cell Persistent fevers, POA. -This patient has had multiple blood cultures which are negative. -Viral PCR negative -2-D echo yesterday relatively unchanged from previous echo no acute valvular processes noted. -Infectious disease consulted suggest discontinuing antibiotics and consultation hematology oncology -Hematology ordered flow cytometry with leukocytes and lymphocytes as per Dr. George Chronic hepatitis C, POA. 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 -Hemoglobin and hematocrit currently stable -We will continue to monitor History of tobacco, methamphetamine, heroin, and cocaine use. 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 - U-tox from ED not done -Urine tox was negative however we will send for repeat as this may have been incorrect as the patient is on opiate medication currently - Continue to bereavement counselor patient about cessation of these substances. -Social work following the patient currently is refusing any resources for substance abuse counseling. It was reported that the patient stated that his last history of IV drug use was over 5 months ago. This is prior to going to rehabilitation for 30 days. He has smoked methamphetamine twice or 3 times since then but no IV drug use. 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 Right-sided rib pain (resolving) -Most likely secondary to somatic dysfunction of the ribs -Could also be secondary to the patient's sickle cell crisis however the patient responded well to OMT with decreased pain. - Antiemetic available PRN. - Antacid available PRN. - Bowel regimen available PRN. Disposition: Patient has been febrile and with leukocytosis. It is still questionable as to where the leukocytosis is coming from however it is improving. Patient has not been on antibiotics for last 24 hours. Hematology and oncology (Dr. George) was consulted and felt that the patient's anemia is currently stable however he is unsure as to where the leukocytosis is coming from but feels that it is more of an infectious process. To rule this out Dr. George would like a flow cytometry performed with leukemia and lymphoma to rule out possible cancerous etiology. Samples for this particular test were taken this morning and the results are pending. Infectious disease is still following this case and appreciate their recommendations and input. The patient has been off of antibiotics for the last 24 hours and the patient's foot does seem to be improving as he has significantly decreased swelling. We will continue to monitor for possible osteomyelitis versus sickle cell crisis. Resuscitation Status: CPR: Attempt Resuscitation Sailaja Rashid DO Dec 28, 2016 15:42
--- NOTE | 2016-12-28 19:25 | NUR ---
Pain Pt. has been req. pain med throughout shift, c/o 3-4 out of 10 pain. Pt. states 1 out of 10 is tolerable for him. Pt. has been in room throughout shift and ambulated to bathroom for a shower in the morning. Upon ambulation Pt. denied pain, SOB, CP, dizziness and light headedness.
--- NOTE | 2016-12-28 22:14 | NUR ---
Fall Pt found on the floor sitting beside bed. Pt stated he was "trying to walk to the bathroom." Pt assisted with urinal. Pt denies pain to any new area except for his right toe which was hurting prior to the fall. Provider notified.
[2016-12-29] VITALS (9 sets, daily range): BP systolic 108–129; BP diastolic 57–80; PULSE 103–139; RESP 14–20; O2SAT 95–97
[2016-12-29] MEDS: HYDROmorphone 1 mg/mL Inj IVPUSH PRN ×8 (00:14→14:52)
[2016-12-29] MEDS: 0.9% Sodium Chloride 1,000 ML IV SCH ×3 (05:45→22:29)
[2016-12-29 07:42] LABS: Mean Corpuscular Volume 76.3 fL (81-100)
--- NOTE | 2016-12-29 13:23 | PCM.PNMED ---
Subjective Date of Service Dec 29, 2016 Subjective Patient was examined at bedside today. Patient denies any chest pain, shortness of breath, nausea, vomiting, diarrhea. Patient still complains of his right foot pain, and generalized pain. Exam Vital Signs Vital Sign - Last Date Time Temp Pulse Resp B/P Pulse Ox O2 Delivery O2 Flow Rate FiO2 12/29/16 12:30 37.8 139 16 129/80 95 Room Air 12/26/16 04:40 2.00 Intake and Output 12/28/16 12/28/16 12/29/16 Cumulative From/Thru 15:00 23:00 07:00 12/22/16 20:44 - 12/29/16 04:42 Intake Total 3287 ml 1410 ml 12098 ml Output Total 2200 ml 2400 ml 53424 ml Balance 1087 ml -990 ml 6300 ml Intake Oral 1976 ml 92599 ml IV Total 1311 ml 1410 ml 26418 ml Output Urine Total 2200 ml 2400 ml 19228 ml # Voids 3 # Bowel Movements 1 5 Exam Physical Exam: GEN: Patient was awake, alert, responding appropriately to questions HEENT: PERRLA, EOMI, Neck soft supple, trachea midline, nomocephalic/atraumatic CV: +S1/S2, RRR, no murmurs auscultated Respiratory: CTAB, no wheezes, rales, rhonchi GI: +bowel sounds x4, soft, compressible, non TTP EXT: no c/c right char conveyor tender cellar to palpation in the great toe area, edema and swelling of the right foot has improved significantly, peeling of the skin of the right toes Neuro: CN II-XII grossly intact Psych: mood and affect were appropriate IVs and Medications Medications Reviewed: Medications were reviewed in detail Medications Current Medications Hydromorphone HCl 1 mg Q3H PRN PO Last administered on 12/29/16 06:10; Admin Dose 1 MG; Start 12/27/16 at 23:20 Nicotine 1 patch DAILY TOPICAL Last administered on 12/29/16 08:39; Admin Dose 1 PATCH; Start 12/28/16 at 02:40 Gabapentin 100 mg TID PO; Start 12/29/16 at 10:03 Lab and Diagnostics Result Diagram: 12/29/16 0730 12/28/16 0710 X-Rays, CTs and MRIs Chest x-ray: Awaiting formal read by radiology. Patient appears to have had some infiltrate in the right base on prior exam. Today, patient appears more rotated in portable film and could be cause of apparent increase in the appearance of this infiltrate. Uncertain if this is the case but would like to plan for short- interval repeat 2-view chest. 12-lead ECG Rate 117 QTc [address] elevations - do not appear to be changed from prior exam. Could represent early repolarization pattern. Assessment & Plan 26-year-old male with sickle cell crisis and fever Acute sickle cell pain episode, present on admission. -Continue Supportive measures with fluids, oxygen and analgesia. Possible sickle cell acute chest syndrome, with fever and pulmonary infiltrates. -Discontinue ceftazidime and azithromycin as per recommendations from ID - Oxygen and analgesia Right foot pain. POA. -X-ray negative - Concern is for bone infection or bone infarct. CT of the foot is fairly nonspecific but suggested possible distal tibia bone infarct which is not an area of tenderness. There is also area of abnormal bone signal in the great toe which is not the most tender area of the foot. - MRI of the foot suggestive of osteomyelitis versus bone infarct secondary to sickle cell -Consult podiatry (Dr. Urbano) Persistent fevers, POA. -This patient has had multiple blood cultures which are negative. -Viral PCR negative -2-D echo yesterday relatively unchanged from previous echo no acute valvular processes noted. -Infectious disease consulted suggest discontinuing antibiotics and consultation hematology oncology -Hematology ordered flow cytometry with leukocytes and lymphocytes as per Dr. George: Flow cytometry shows no significant amino phenotypic abnormalities, no evidence of lymphoproliferative process or a myeloid stem cell disorder. Chronic hepatitis C, POA. 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 -Hemoglobin and hematocrit currently stable -We will continue to monitor History of tobacco, methamphetamine, heroin, and cocaine use. 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 - U-tox from ED not done -Urine tox was negative however we will send for repeat as this may have been incorrect as the patient is on opiate medication currently - Continue to herb counselor patient about cessation of these substances. -Social work following the patient currently is refusing any resources for substance abuse counseling. It was reported that the patient stated that his last history of IV drug use was over 5 months ago. This is prior to going to rehabilitation for 30 days. He has smoked methamphetamine twice or 3 times since then but no IV drug use. 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 Right-sided rib pain (resolving) -Most likely secondary to somatic dysfunction of the ribs -Could also be secondary to the patient's sickle cell crisis however the patient responded well to OMT with decreased pain. - Antiemetic available PRN. - Antacid available PRN. - Bowel regimen available PRN. Disposition: Patient has been febrile and with leukocytosis. It is still questionable as to where the leukocytosis is coming from however the patient still has fevers and his white blood cell count continues to shift. Flow cytometry was performed as requested by hematology oncology and states that the patient's peripheral blood shows no significant immunophenotypic abnormalities, no evidence of a lymphoproliferative process or a myeloid stem cell disorder. Will contact hematology oncology once again for further recommendations. Infectious disease is also following. The patient does have significant pain in his right foot with discoloration of the toes and peeling of the skin. Podiatry has been consulted in order to evaluate the patient's foot. Resuscitation Status: CPR: Attempt Resuscitation Time spent Greater than 35 minutes Sailaja Rashid DO Dec 29, 2016 13:23
--- NOTE | 2016-12-29 14:22 | PROG NOTE ---
[address] [address] PROGRESS NOTE PATIENT: MAYE MENDEZ : 1990 MR#: [id number] ADMIT: 12/23/2016 JOB ID: [id number] DATE: 12/29/2016 INFECTIOUS DISEASE FOLLOWUP NOTE: REASON FOR FOLLOWUP: Infection versus vaso-occlusive phenomena in toes of right foot. INTERVAL HISTORY: Overnight, there has been little change. The patient continues to complain of pain in all five toes. They also "feel funny," as if there may be some neuropathic component to the symptoms in the right foot. He states he is having low-grade fevers, and the nurses confirm temperatures up to about 37.9 but nothing over 38. He is not having chills. He denies any cough or shortness of breath but he does have some bilateral chest wall pain, which he has had for several days. No GI symptoms. PHYSICAL EXAMINATION: Reveals a gentleman 37.8 right now and that equal his highest temperature in the last three days. Note that he did spike on December 26 to 38.8 and since then, about once a day, he has been 37.8, but never more. His pulse is currently all the way up to 140, however. Respiratory rate 16, blood pressure 129/80. He is saturating well on room air and in no acute distress. The patient's mood and affect are both down. His oral cavity without thrush or pharyngitis. Neck without adenopathy. His lungs are fairly clear anteriorly. I do not hear any rales or rhonchi. Cardiac tones: Tachycardic to the point one cannot hear anything else. His abdomen is soft and nontender. The toes on the right foot are not warm, and there is no evidence of skin breakdown or erythema. They are tender with pretty aggressive palpation. Fairly light palpation is not bothersome but when his toes are actually squeezed, he does have a fair amount of pain there, and it seems to be extending across all five toes. Full range of motion of the toes, however. LABORATORIES: Include a white count of 13,000, platelets 434. Creatinine 0.79. ALT is 54. Procalcitonin is 0.13, which is about where it has been during his whole week here in the hospital. Blood cultures negative times multiple sets, and I do not see an indication at drawn anymore. IMAGING: The foot MRI was equivocal with respect to the toes on the right foot, and the differential diagnosis was bone infarction versus infection basically. IMPRESSION: I am not convinced that the patient has an infection. He does have low-grade fevers, but they have not been exceeding 38 degrees, and we probably have another explanation in terms of his ongoing bilateral chest pain and potentially his right toe pain, which I believe is secondary to vaso-occlusive phenomena of sickle cell rather than infection. The toes could be infected, and he may have osteomyelitis or, much more likely, I think this is early bony infarcts developing as a consequence of his sickle cell. How to sort out whether this is infection or strictly a sickle cell vascular phenomena is unclear but I think we should get input from Podiatry, as well as Hematology. RECOMMENDATIONS: 1. Hold off on antibiotics and observe. 2. I would consider consulting Hematology, as well as Podiatry. 3. Will continue to follow with you. 4. Note that I will be out of town from tomorrow until January 02 but I can be reached by telephone about this or any other case.
[2016-12-29] MEDS: HYDROmorphone PCA 0.2 mg/mL 30 mL Inj IV PRN ×2 (16:28→21:28)
--- NOTE | 2016-12-29 18:21 | NUR ---
Pain Pt had a pain level of 2-3/10 all day with getting IV 2mg Dilaudid and PO 10mg Oxycodone PRN round the clock. After discussing with MD about pain we talked to the pt and she ordered ELECTROPHYSIOLOGY SCIENTIST Dilaudid. In the meantime his right IV had infiltrated and we removed his IV. A RN tried 2 times and then IV therapy was called. IV therapy was successful and got an IV on the right leg. ELECTROPHYSIOLOGY SCIENTIST was started at 1730. PT tolerating it well. Will continue to monitor.
--- NOTE | 2016-12-29 18:49 | CONS ---
[address] [address] CONSULTATION REPORT PATIENT: MAYE MENDEZ : 1990 MR#: [id number] ADMIT: 12/23/2016 JOB ID: [id number] DATE OF SERVICE: 12/29/2016 INPATIENT HEMATOLOGY CONSULTATION: REASON FOR CONSULTATION: Persistent right foot pain in a patient with sickle cell disease. HISTORY OF PRESENT ILLNESS: The patient is a 26-year-old young man with sickle cell disease. It does not appear that he has any regular ed transporter. He is on hydroxyurea 500 mg b.i.d. and oxycodone 20 mg p.r.n. at home. He does not have a regular provider. He says he has only needed blood transfusion once or twice in his lifetime. He has not had a known stroke or silent stroke. About a few months ago he had a right-sided finger amputated because the ring would not come off and it became infected. He has chronic hepatitis C. He has history of IV drug abuse with heroin and methamphetamine. The patient was recently admitted to hospital from December 03 to December 08. It was primarily for pain in both legs. He says ever since then he has had pain in his right-sided toes which was still present when he was discharged and it never resolved. It became so painful that he was not able to wear a shoe and he returned back to hospital a week ago on December 23. Since admission he has been intermittently febrile, although temperature seems to be trending down. Multiple blood cultures have been drawn on December 22, , and , all negative. Given no evidence of infection, his antibiotics were stopped as of today. Currently he continues to experience severe pain across all toes on the right side. On exam the toes have superficial ulcerations, skin peeling, and are warm to touch, with a clear difference between the two sides. The pulses on his right foot are full and strong. PAST MEDICAL HISTORY: 1. Sickle cell disease. 2. Chronic hepatitis C virus infection. 3. Polysubstance IV drug abuse. 4. ADHD. PAST SURGICAL HISTORY: Finger amputation about a few months ago. Retinal detachment surgery. HOME MEDICATIONS: Hydroxyurea 500 mg b.i.d. and oxycodone 20 mg p.r.n. OBJECTIVE: Young man, appears tired. He does not appear septic. Blood pressure 118/67, heart rate 103, T-max over the last 24 hours at 37.8. O2 saturation 96% on room air. Examination of the right-sided toes reveals skin peeling, warmth, and superficial ulcerations as mentioned above. LABORATORY DATA: Hemoglobin stable around 10. Leukocyte count elevated and platelet count elevated. Renal function is normal. Bilirubin is 1.1. MRI of the foot shows marrow edema and subtle increased enhancement in the 1st distal phalanx. There is also mild increased T2 signal in proximal 5th metatarsal shaft. IMPRESSION/PLAN: Overall I suspect this patient has a prolonged vaso-occlusive crisis affecting distal right foot. The problem does not appear to be osteomyelitis as it involves all of his right-sided toes and there was no evidence of localized infection in a specific bone by MRI. I agree with stopping empiric antibiotic therapy. He should continue IV hydration and IV analgesics. NSAID can be added as well. If hemoglobin drops under 9, I would recommend transfusion 1 unit packed red blood cells at a time. I placed an order for retic count, LDH, and bilirubin for tomorrow morning. I will follow remotely over the weekend and will return for followup on Sunday or Sunday next week.
--- NOTE | 2016-12-29 19:32 | CONS ---
[address] [address] CONSULTATION REPORT PATIENT: MAYE MENDEZ : 1990 MR#: [id number] ADMIT: 12/23/2016 JOB ID: [id number] DATE OF SERVICE: 12/29/2016 HISTORY OF PRESENT ILLNESS: Consultation is requested by Dr. Rashid regarding the patient's painful right foot. He is currently admitted for treatment of sickle cell crisis. He has had an MRI and CT scan done of his right foot to assess for changes consistent with fractures versus osteomyelitis versus possible bone necrosis that could be associated with the sickle cell disease. The patient is a very poor historian. He has a history of IV drug use but denies having injected anything or come across a foreign body in his right foot. He did relate to me that his toenails fell off at some point over the past couple of weeks, but he does not recall when and how. He knows that his foot was swollen prior to this and then all of the toenail fell off at the same time approximately. He is currently experiencing a significant amount of pain in his right foot, specifically all toes. He is also experiencing some pain in all extremities and overall less pain in the abdominal area. Review of systems is otherwise negative for shortness of breath, chest pains, abdominal discomfort, constipation, diarrhea, vision changes, or bleeding. PAST MEDICAL HISTORY: Consistent with sickle cell disease and polysubstance abuse, ADHD, chronic back pain. HOME MEDICATIONS: He states he has been on hydroxyurea and off and on pain medications. SOCIAL HISTORY: The patient is a smoker; he smokes about a pack a day. He lives at home with his family. He does not drink alcohol. He states that he has been clean of any illicit drugs over the past month but he has had multiple sickle cell crises with multiple admissions to the hospital over the past few months. FAMILY HISTORY: The patient states he is adopted. PHYSICAL EXAMINATION: The patient is alert and cooperative, but a very poor historian and appears in mild distress secondary to pain and somewhat depressed upon my arrival. He is currently on telemetry. He is also holding his right arm out for warming to try to gain IV access for better pain control. His feet are covered in multiple sheets and a blanket and his right foot is showing signs of wrinkling and resolution of edema. There is a small necrotic patch of skin on the lateral 5th toe. Web spaces are clean and dry. All lesser toenails have fallen off and there is no evidence of new nail growth, which appears to be a more recent episode. His feet are both warm and well perfused, with palpable dorsalis pedis and posterior tibial pulse. Due to patient guarding and pain he did not tolerate any range of motion or strength testing of his right foot. IMAGING: I reviewed the MRI that is consistent with bone marrow edema in the toes and a CT scan that showed no fractures and no obvious signs of sclerosis that would indicate a more chronic osteonecrosis. Plain radiographs were positive for periarticular erosions. ASSESSMENT: Sickle cell crisis with significant swelling and pain in the right foot with possible osteonecrosis, less likely osteomyelitis, and possible superimposed gout. PLAN: After evaluating the patient today, considering the history and the presentation of his right foot, osteonecrosis from sickle cell anemia is probably the number one differential diagnosis. However, in a situation where sickle cell crisis is happening and the radiographs are showing signs of periarticular erosions in all digits, a superimposed precipitation of uric acid would be the differential diagnosis in this case as well; not so much as a person who under-secretes uric acid or overproduces, but rather is experiencing a precipitation due to the current sickle cell crisis. I will still get a uric acid level and CRP level with tomorrow morning's labs. I would suggest treating him with oral anti-inflammatories for the next three days or IV Toradol for 24 hours to see if he responds to the treatment. If he does, he should be on an anti-inflammatory for approximately one week until the episode resolves and he could be on such medication in the future in case an episode happens again. I will recheck on him again tomorrow after the labs are done and we will discuss the case with the attending physician at that time. No further treatment for the necrotic area of the right 5th toe. It will likely resolve itself as the sickle cell crisis resolves. My thanks to Dr. Rashid for involving me in this gentleman's care.
[2016-12-30] VITALS (16 sets, daily range): BP systolic 100–119; BP diastolic 68–73; PULSE 86–120; RESP 15–20; O2SAT 96–100
--- NOTE | 2016-12-30 03:32 | NUR ---
Fever/Pain Patient temp up to 39.2; paged and tylenol given per new orders. Temp down to 38.0. Patient continues on AUTOMOTIVE MECHANIC dilauded; pain 2/10. Continue to monitor.
[2016-12-30] MEDS: HYDROmorphone PCA 0.2 mg/mL 30 mL Inj IV PRN ×3 (06:18→17:30)
[2016-12-30] MEDS: Ketorolac 15 mg/mL Inj IVPUSH SCH ×3 (09:03→20:03)
[2016-12-30] MEDS: 0.9% Sodium Chloride 1,000 ML IV SCH ×2 (09:04→21:44)
[2016-12-30 09:37] LABS: Mean Corpuscular Hemoglobin 26.9 pg (27.0-35.0)
[2016-12-30] MEDS ORDERED: Sodium Chloride LOK Flush 10 mL Syringe IVFLUSH PRN ×2 (10:05)
--- NOTE | 2016-12-30 10:20 | PCM.PNMED ---
Subjective Date of Service Dec 30, 2016 Subjective Patient was seen and examined at bedside today. Patient denies any shortness of breath, nausea, vomiting, diarrhea. Patient still complains of generalized thorax pain most likely secondary to the chest syndrome from his sickle cell. Patient also still complains of right foot pain. Patient states that his pain is better controlled on the COMMUNITY RECREATION COORDINATOR pump. Exam Vital Signs Vital Sign - Last Date Time Temp Pulse Resp B/P Pulse Ox O2 Delivery O2 Flow Rate FiO2 12/30/16 08:42 90 12/30/16 08:30 37.1 16 119/72 98 Room Air 12/26/16 04:40 2.00 Intake and Output 12/29/16 12/29/16 12/30/16 Cumulative From/Thru 15:00 23:00 07:00 12/22/16 20:44 - 12/30/16 06:21 Intake Total 2619 ml 2809 ml 64490 ml Output Total 1975 ml 1475 ml 03475 ml Balance 644 ml 1334 ml 8278 ml Intake Oral 1900 ml 1716 ml 72345 ml IV Total 719 ml 1093 ml 70513 ml Output Urine Total 1975 ml 1475 ml 63335 ml # Voids 1 4 # Bowel Movements 1 6 Exam Physical Exam: GEN: Patient was awake, alert, responding appropriately to questions HEENT: PERRLA, EOMI, Neck soft supple, trachea midline, nomocephalic/atraumatic CV: +S1/S2, tachycardia, no murmurs auscultated Respiratory: CTAB, no wheezes, rales, rhonchi GI: +bowel sounds x4, soft, compressible, non TTP EXT: no c/c/e Muscular skeletal: Generalized thorax pain consistent with chest syndrome from sickle cell crisis, right foot pain with skin peeling of the toes. Pain is predominantly in the metatarsal areas and the phalanges. Neuro: CN II-XII grossly intact Psych: mood and affect were appropriate Lab and Diagnostics Result Diagram: 12/30/16 0932 12/30/16 0932 X-Rays, CTs and MRIs Chest x-ray: Awaiting formal read by radiology. Patient appears to have had some infiltrate in the right base on prior exam. Today, patient appears more rotated in portable film and could be cause of apparent increase in the appearance of this infiltrate. Uncertain if this is the case but would like to plan for short- interval repeat 2-view chest. 12-lead ECG Rate 117 QTc [address] elevations - do not appear to be changed from prior exam. Could represent early repolarization pattern. Assessment & Plan 26-year-old male with sickle cell crisis and fever Acute sickle cell pain episode, present on admission. -Continue Supportive measures with fluids, oxygen and analgesia. Sickle cell acute chest syndrome, with fever and pulmonary infiltrates. -Discontinue ceftazidime and azithromycin as per recommendations from ID - Continue with Oxygen and analgesia - Add Toradol to patient's analgesia regimen patient currently on COMMUNITY RECREATION COORDINATOR pump Right foot pain. POA. Most likely secondary to vaso-occlusive syndrome -X-ray negative - Concern is for bone infection or bone infarct. CT of the foot is fairly nonspecific but suggested possible distal tibia bone infarct which is not an area of tenderness. There is also area of abnormal bone signal in the great toe which is not the most tender area of the foot. - MRI of the foot suggestive of osteomyelitis versus bone infarct secondary to sickle cell -Consult podiatry (Dr. Urbano) Persistent fevers, POA. -This patient has had multiple blood cultures which are negative. -Viral PCR negative -2-D echo yesterday relatively unchanged from previous echo no acute valvular processes noted. -Infectious disease consulted suggest discontinuing antibiotics and consultation hematology oncology -Hematology ordered flow cytometry with leukocytes and lymphocytes as per Dr. George: Flow cytometry shows no significant amino phenotypic abnormalities, no evidence of lymphoproliferative process or a myeloid stem cell disorder. Chronic hepatitis C, POA. 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 -Hemoglobin and hematocrit currently stable -We will continue to monitor History of tobacco, methamphetamine, heroin, and cocaine use. 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 - U-tox from ED not done -Urine tox was negative however we will send for repeat as this may have been incorrect as the patient is on opiate medication currently - Continue to recreation counselor patient about cessation of these substances. -Social work following the patient currently is refusing any resources for substance abuse counseling. It was reported that the patient stated that his last history of IV drug use was over 5 months ago. This is prior to going to rehabilitation for 30 days. He has smoked methamphetamine twice or 3 times since then but no IV drug use. 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 - Antiemetic available PRN. - Antacid available PRN. - Bowel regimen available PRN. Disposition: Patient was seen and examined by podiatry and hematology oncology. Podiatry stated that the patient's right foot pain is most likely secondary to the sickle cell crises that he is having and less likely to osteomyelitis. They were concerned that the patient may be having an increase in uric acid and this could also be contributing to the patient's pain however uric acid has been normal at 5.4. They just see the patient is having a lot of inflammatory joint pain most likely secondary to the sickle cell crisis and recommend Toradol for analgesia. Oncology has also seen the patient and feels that the patient's pain is coming from vaso-occlusive syndrome. They also recommend using NSAIDs such as Toradol in order to give the patient some relief. They also agreed that the patient should not continue on antibiotics but to recommend that if his hemoglobin drops under 9 that he should be transfused at least 1 unit of packed red blood cells. The patient's lactate dehydrogenase level is elevated at 274. Patient has also been having difficulty maintaining IV access. A PICC line will be ordered for today. If they are unable to put a PICC line in this patient lives central line will be placed. Resuscitation Status: CPR: Attempt Resuscitation Time spent Greater than 35 minutes Sailaja Rashid DO Dec 30, 2016 10:19
--- NOTE | 2016-12-30 11:25 | NUR ---
IV Upon checking IV this morning the pt's right leg is swollen and tight feeling, no pain or redness noted. IV was leaking. D/C IV, floating leg, and IV therapy was contacted as well as discussion with the MD about a possible PICC being needed due to this being his second IV that has infiltrated in the last 24 hours. With no IV access the Pt's RESEARCH DIETITIAN Dilaudid had to be on hold, administered PO Oxycodone at 10am.Pt is at the PICC suit now. Will continue to monitor.
--- NOTE | 2016-12-30 11:44 | DRSVH ---
PROCEDURE: X-RAY PICC LINE PLACEMENT BY NURSE ([id number]) INDICATIONS: IV access needed COMPARISON: None. FINDINGS: PICC was placed by the intravenous therapy team from the right side. Fluoroscopic spot fi lm demonstrates tip of PICC projected over the cavoatrial junction. IMPRESSION: Tip of PICC is projected over the cavoatrial junction. Dictated by: Emily Ray M.D. on 12/30/2016 at 11:42 Approved by: Emily Ray M.D. on 12/30/2016 at 11:42
--- NOTE | 2016-12-30 17:29 | PCM.PNPOD ---
Subjective Date of Service: Dec 30, 2016 Visit Information: Reason for Visit Sickle Cell With Vaso Occlusive Crisis Subjective: Patient is seen at bedside, complaining that the CHEMICAL PRODUCTION MACHINE OPERATOR is not adequate for pain control. Most of his pain is concentrated in his rib cage and toes of the right foot. Objective Vital Sign - Last Date Time Temp Pulse Resp B/P Pulse Ox O2 Delivery O2 Flow Rate FiO2 12/30/16 16:46 36.4 99 18 104/69 98 Room Air 12/26/16 04:40 2.00 Intake and Output 12/29/16 12/29/16 12/30/16 Cumulative From/Thru 15:00 23:00 07:00 12/22/16 20:44 - 12/30/16 06:21 Intake Total 2619 ml 2809 ml 58578 ml Output Total 1975 ml 1475 ml 92560 ml Balance 644 ml 1334 ml 8278 ml Intake Oral 1900 ml 1716 ml 63329 ml IV Total 719 ml 1093 ml 96387 ml Output Urine Total 1975 ml 1475 ml 95978 ml # Voids 1 4 # Bowel Movements 1 6 Result Diagram: 12/30/16 0932 12/30/16 0932 Lab Test 12/22/16 21:35 12/23/16 10:50 12/23/16 13:00 12/26/16 03:00 Reticulocyte Count,Calculated 2.5% (0.6-2.6) Hold Purple Top Tube Received (Received) Hold Blue Top Tube Received (Received) Lactate Dehydrogenase 274U/L (100-190) Lipase 14U/L (13-60) Hold Red Top Tube Received (Received) Hold Meridian Top Tube Received (Received) Neutrophils (%) (Auto) 63.0% (40-74) Lymphocytes (%) (Auto) 19.1% (14-46) Monocytes (%) (Auto) 13.3% (4-12) Eosinophils (%) (Auto) 3.8% (0-5) Basophils (%) (Auto) 0.5% (0-3) Lactic Acid Level 1.1mmol/L (0.4-2.0) Phosphorus Level 2.7mg/dL (2.5-4.9) Magnesium Level 1.6mg/dL (1.6-2.6) Urine Color Yellow (YELLOW) Urine Appearance Clear (CLEAR,HAZY) Urine pH 7.0 (5.0-8.0) Urine Specific [place] 1.009 (1.003-1.035) Urine Protein Negativemg/dL (NEG,TRACE) Urine Glucose (UA) Negativemg/dL (NEGATIVE) Urine Ketones Negativemg/dL (NEGATIVE) Urine Occult Blood Negative (NEGATIVE) Urine Nitrite Negative (NEGATIVE) Urine Bilirubin Negative (NEGATIVE) Urine Urobilinogen Normalmg/dL (NORMAL) Urine Leukocyte Esterase Negative (NEGATIVE) Urine RBC 0-2/hpf (0-2) Urine WBC 0-5/hpf (0-5) Urine Epithelial Cells None/hpf (NONE-MOD) Urine Crystals None seen (NONE SEEN) Urine Bacteria None/hpf (NONE-FEW) Urine Hyaline Casts None/lpf (NONE) Urine Granular Casts None seen (NONE SEEN) Urine Waxy Casts None seen (NONE SEEN) Urine Red Blood Cell Casts None seen (NONE SEEN) Urine White Blood Cell Casts None seen (NONE SEEN) Urine Mucus None seen (None Seen) Urine Trichomonas None seen (NONE SEEN) Urine Yeast None (NONE SEEN) Urinalysis Comment None Urine Culture Reflexed Not indicated Hold Hernandez Top Tube Received (Received) Test 12/28/16 07:10 12/28/16 17:00 12/29/16 07:30 12/30/16 09:32 Total Bilirubin 1.1mg/dL (0.0-1.2) Aspartate Amino Transf (AST/SGOT) 37U/L (0-50) Alanine Aminotransferase (ALT/SGPT) 54U/L (0-44) Alkaline Phosphatase 122U/L (25-150) Total Protein 6.6g/dL (6.4-8.4) Albumin 3.2g/dL (3.4-5.0) Urine Opiates Screen Negative Urine Methadone Screen Negative Urine Barbiturates Screen Negative Urine Amphetamines Screen Negative Urine Benzodiazepines Screen Negative Urine Cocaine Metabolite Screen Negative Urine Cannabinoids Screen Negative Procalcitonin 0.13ng/mL (0.00-0.08) White Blood Count 13.3th/mm3 (3.8-10.1) Red Blood Count 4.32mil/mm3 (4.40-5.80) Hemoglobin 11.6g/dL (13.8-17.2) Hematocrit 32.4% (41.0-50.0) Mean Corpuscular Volume 75.0fL (81-100) Mean Corpuscular Hemoglobin 26.9pg (27.0-35.0) Mean Corpuscular Hemoglobin Concent 35.8% (32.0-37.0) Red Cell Distribution Width 19.5% (12.3-15.4) Platelet Count 370bil/L (150-400) Sodium Level 137mEq/L (134-144) Potassium Level 4.5mEq/L (3.5-5.2) Chloride Level 99mEq/L (97-108) Carbon Dioxide Level 22mmol/L (18-29) Blood Urea Nitrogen 7mg/dL (6-20) Creatinine 0.57mg/dL (0.76-1.27) Estimat Glomerular Filtration Rate 184mL/min (>59) Glucose Level 145mg/dL (60-99) Uric Acid 5.4mg/dL (2.6-7.2) Calcium Level 9.2mg/dL (8.5-10.1) C-Reactive Protein 6.2mg/dL (0.0-0.5) Test 12/30/16 13:28 Erythrocyte Sedimentation Rate 67mm/hr (0-15) Exam General: Alert, Moderate Distress (due to pain) Lower Extremities: Right: Edema localized (all toes) Lower Extremity Pulses: Palpable: Left Dorsalis Pedis Left Posterior Tibal Right Dorsalis Pedis Right Posterior Tibal Postop Sensory Motor: Distal Motor Intact Podiatry WOUND : Wound Location/Description Edema is slowly coming down in the toes on the right foot. Necrotic areas of skin on the fifth toe and nailbeds are slowly resolving. All lesser toenails are missing. There is no regrowth of nail on any of them, indicating that this happened recently. Most likely, the article lysis happened to due to vaso- occlusive disease. Assessment & Plan Problems: (1) Foot pain, right Plan: His serum uric acid test came back 5.4, indicating that it is not elevated systemically. However, I still feel that anti-inflammatory treatment is helpful for this patient for a period of 2-3 days. Toradol has been started at 15 mg every 6 hours. At this point I would continue that for 3 days. The only 2 ways to assess for osteomyelitis, if her white blood cell count remains elevated and ESR does not trend down after 3 days, would be a white blood cell labeled bone scan versus a bone biopsy. At this point, due to the fragile nature of the soft tissue injury, I would hold off on the bone biopsy. The soft tissue envelope could result in a nonhealing wound, if not properly recovered for such a procedure. My plan is to followup on Sunday and assess response at that time. Status: Acute ICD Code: M79.671 Genet Urbano DPM Dec 30, 2016 17:29
--- NOTE | 2016-12-30 23:59 | NUR ---
Pain Management Patient requesting increase in X RAY SERVICE ENGINEER dose; per shift report, patient had also asked for this during day shift and there was no dose change from the day shift doctor. Patient agitated and cursing at nursing staff in the evening, stating that he needs more X RAY SERVICE ENGINEER medication. Discussed with night hospitalist, patient is already on opioid tolerant X RAY SERVICE ENGINEER dilauded dosing, reporting pain 2-4/10 with PO oxycodone for breakthrough pain; patient also has noted history of becoming very somnolent and difficult to rouse on high doses of narcotics. No dose changes made at this time. Patient notified. Continue to monitor.
[2016-12-31] VITALS (13 sets, daily range): BP systolic 95–139; BP diastolic 48–88; PULSE 98–128; RESP 16–22; O2SAT 95–99
[2016-12-31] MEDS: HYDROmorphone PCA 0.2 mg/mL 30 mL Inj IV PRN ×4 (01:27→19:32)
[2016-12-31] MEDS: Ketorolac 15 mg/mL Inj IVPUSH SCH ×4 (01:28→19:34)
[2016-12-31] MEDS: 0.9% Sodium Chloride 1,000 ML IV SCH ×2 (09:06→19:36)
[2016-12-31 10:35] LABS: BASOPHILS % (AUTO) 0.3 % (0-3); EOSINOPHILS % (AUTO) 10.8 % (0-5); MONOCYTES % (AUTO) 8.2 % (4-12); Mean Corpuscular Hemoglobin 26.6 pg (27.0-35.0); Mean Corpuscular Volume 75.8 fL (81-100); NEUTROPHILS % (AUTO) 59.4 % (40-74); Platelet Count 465 bil/L (150-400)
[2016-12-31 11:05] LABS: Magnesium 1.6 mg/dL (1.6-2.6)
--- NOTE | 2016-12-31 13:56 | NUR ---
Social Work: Brief Note Data and Assessment: EMR reviewed. Patient was discussed in daily rounds. Podiatry is following the patient and will see patient again on Sunday. Patient is on his eight day of hospitalization. Patient plans to turn himself into the police when he is feeling better. Patient also plans to follow-up with the Suboxone clinic when discharged. Patient stated that he has not talked to his mother (VNONIE) since he has been here and requested that the SW not call her. He denies any other needs. SW will continue to follow Plan: To follow up with Suboxone clinic - referral made. The Suboxone clinic will contact him with appointment time on his mother's phone at [phone] or [phone]. SW will continue to follow patient. Phyllis Mayo, LEIDY, KIM
[2016-12-31] MEDS ORDERED: Magnesium Sulf 4 Gm/100 mL H2O 4 GM in IV Premix 1 EACH IV ONE (15:05)
--- NOTE | 2016-12-31 15:21 | PCM.PNMED ---
Subjective Date of Service Dec 31, 2016 Subjective Patient complains that his STRATEGIC ACCOUNTS MANAGER allergies because not controlling his pain. He has no other specific complaints. Exam Vital Signs Vital Sign - Last Date Time Temp Pulse Resp B/P Pulse Ox O2 Delivery O2 Flow Rate FiO2 12/31/16 12:24 36.6 101 22 111/69 97 Room Air 12/26/16 04:40 2.00 Intake and Output 12/30/16 12/30/16 12/31/16 Cumulative From/Thru 15:00 23:00 07:00 12/22/16 20:44 - 12/31/16 05:36 Intake Total 2735 ml 2239 ml 94853 ml Output Total 150 ml 700 ml 62874 ml Balance 2585 ml 1539 ml 53560 ml Intake Oral 1876 ml 1120 ml 57439 ml IV Total 859 ml 1119 ml 05528 ml Output Urine Total 150 ml 700 ml 00614 ml # Voids 4 # Bowel Movements 0 6 Exam General: Patient is in no apparent distress. He is lying comfortably in bed watching TV. HEENT: Head is atraumatic and normocephalic. Eyes: Pupils are pinpoint but equally round and reactive to light and accommodation. Extraocular muscles are intact. Sclera are white, anicteric. Subconjunctival mucosa is pink. Ears and nose are unremarkable. Oropharynx: There is no mucosal lesions, there is no thrush, there is no pharyngitis. Neck: Is supple, there are no nodes, or masses or tenderness. Chest: Is clear to auscultation and percussion. There are no rales, rhonchi, wheezes or rubs. Heart: Rate, rhythm is regular. There is no murmur, rub or gallop. Abdomen: Good bowel sounds are present. Abdomen is soft, with nonspecific tenderness, no organomegaly or masses were appreciated. Extremities: Are symmetrical and well perfused. There is some edema of the right upper extremity primarily distal to the elbow, there is no cellulitis, no rash. There is no rubor calor or dolor. Neurologic: There are no focal neurological deficits. Cranial nerves II through XII are intact. There are no sensory or motor deficits. Psychiatric: Patients mood is calm and shows no sign of agitation. Genital: Deferred Rectal: Deferred Lab and Diagnostics Result Diagram: 12/31/16 1020 12/31/16 1020 Microbiology Blood cultures are all negative. Influenza screen was negative, and viral PCR nasopharyngeal was negative. X-Rays, CTs and MRIs Chest x-ray: Awaiting formal read by radiology. Patient appears to have had some infiltrate in the right base on prior exam. Today, patient appears more rotated in portable film and could be cause of apparent increase in the appearance of this infiltrate. Uncertain if this is the case but would like to plan for short- interval repeat 2-view chest. 12-lead ECG Rate 117 QTc [address] elevations - do not appear to be changed from prior exam. Could represent early repolarization pattern. Cardiac Echo Impressions Echocardiogram Report Name: MAYE MENDEZ JStudy Date: 12/26/2016 Height: 71 in Hospital Exam Location: [facility] Weight: 174 lb Gender: Male BSA: 2.0 m2 : 1990 Age: 26 yrs BP: 111/65 mmHg Reason For Study: FEVER Ordering Physician: Performed By: Roberto Dowell Referring Physician: Moreno BRAGG Interpretation Summary The left ventricle is normal in size. Left ventricular systolic function is normal without focal wall motion abnormalities. The ejection fraction is estimated to be 60-65%. The right ventricle is normal in size and function. Pulmonary artery pressures cannot be estimated because of the lack of a measurable TR jet velocity. There is mild biatrial enlargement. There is no significant valvular heart disease. The aortic root is normal size. Compared to the prior echo report on 09/05/2016, there is no significant change. Assessment & Plan Patient is a 26-year-old male with sickle cell crisis ongoing and fever Acute sickle cell pain episode, present on admission. -Continue Supportive measures with fluids, oxygen and analgesia. -We will change his STRATEGIC ACCOUNTS MANAGER to Dilaudid 0.6 mg instead of 0.4 mg IV every 15 minutes when necessary. Sickle cell acute chest syndrome, with fever and pulmonary infiltrates. -Discontinue ceftazidime and azithromycin as per recommendations from ID - Continue with Oxygen and analgesia - Add Toradol to patient's analgesia regimen patient currently on STRATEGIC ACCOUNTS MANAGER pump Right foot pain. Present on admission. Most likely secondary to vaso- occlusive syndrome -X-ray negative - Concern is for bone infection or bone infarct. CT of the foot is fairly nonspecific but suggested possible distal tibia bone infarct which is not an area of tenderness. There is also area of abnormal bone signal in the great toe which is not the most tender area of the foot. - MRI of the foot suggestive of osteomyelitis versus bone infarct secondary to sickle cell -Consulted podiatry (Dr. Urbano) who recommended the following: "His serum uric acid test came back 5.4, indicating that it is not elevated systemically. However, I still feel that anti-inflammatory treatment is helpful for this patient for a period of 2-3 days. Toradol has been started at 15 mg every 6 hours. At this point I would continue that for 3 days. The only 2 ways to assess for osteomyelitis, if her white blood cell count remains elevated and ESR does not trend down after 3 days, would be a white blood cell labeled bone scan versus a bone biopsy. At this point, due to the fragile nature of the soft tissue injury, I would hold off on the bone biopsy. The soft tissue envelope could result in a nonhealing wound, if not properly recovered for such a procedure. My plan is to followup on Sunday and assess response at that time." Persistent fevers, present on admission. -This patient has had multiple blood cultures which are negative. -Viral PCR negative -2-D echo yesterday relatively unchanged from previous echo no acute valvular processes noted. -Infectious disease with Dr. Oneal was consulted and recommended the following : "1. Hold off on antibiotics and observe. 2. I would consider consulting Hematology, as well as Podiatry. 3. Will continue to follow with you. 4. Note that I will be out of town from tomorrow until January 02 but I can be reached by telephone about this or any other case." -Hematology ordered flow cytometry with leukocytes and lymphocytes as per Dr. George: Flow cytometry shows no significant amino phenotypic abnormalities, no evidence of lymphoproliferative process or a myeloid stem cell disorder. Chronic hepatitis C, present on admission. 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 -Hemoglobin and hematocrit currently stable -We will continue to monitor History of tobacco, methamphetamine, heroin, and cocaine use. 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 - U-tox from ED not done -Urine tox was negative however we will send for repeat as this may have been incorrect as the patient is on opiate medication currently - Continue to behavioral health counselor patient about cessation of these substances. -Social work following the patient currently is refusing any resources for substance abuse counseling. It was reported that the patient stated that his last history of IV drug use was over 5 months ago. This is prior to going to rehabilitation for 30 days. He has smoked methamphetamine twice or 3 times since then but no IV drug use. 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 - Antiemetic available PRN. - Antacid available PRN. - Bowel regimen available PRN. Disposition: Patient was seen and examined by podiatry and hematology oncology. Podiatry stated that the patient's right foot pain is most likely secondary to the sickle cell crises that he is having and less likely to osteomyelitis. They were concerned that the patient may be having an increase in uric acid and this could also be contributing to the patient's pain however uric acid has been normal at 5.4. They just see the patient is having a lot of inflammatory joint pain most likely secondary to the sickle cell crisis and recommend Toradol for analgesia. Oncology has also seen the patient and feels that the patient's pain is coming from vaso-occlusive syndrome. They also recommend using NSAIDs such as Toradol in order to give the patient some relief. They also agreed that the patient should not continue on antibiotics but to recommend that if his hemoglobin drops under 9 that he should be transfused at least 1 unit of packed red blood cells. The patient's lactate dehydrogenase level is elevated at 274. Patient has also been having difficulty maintaining IV access. A PICC line will be ordered and placed in the right upper extremity. Right upper extremities showing some swelling, therefore we will keep elevated was several pillows. Pain Evaluation: Adequate Pain Control GI Prophylaxis: Proton Pump Inhibitor VTE Prophylaxis: Sub-Q Enoxaparin Resuscitation Status: CPR: Attempt Resuscitation Channing Caruso MD Dec 31, 2016 15:21
--- NOTE | 2016-12-31 18:45 | NUR ---
HR/Pain/Smoking Patient alert and oriented x3, afebrile, BP stable, on RA with SPO2 at 98%. Tele sinus tachy throughout entire shift, 110s. Reported pain 4-5/10 throughout shift. JUNIOR QA ANALYST currently set at 0.6mg with 15 minute lock out, 2.4mg 1 hour max per MD orders. Patient had a visitor who brought patient in cigarettes and patient was once again smoking in bathroom despite discussion with NOC RN on 12/31 where patient he had once already smoked. lodging house keeper Xiomara consulted, reeducated patient again -- pt verbalized understanding that if he will not be allowed visitors if this pattern continues.
[2017-01-01] VITALS (11 sets, daily range): BP systolic 107–119; BP diastolic 56–75; PULSE 95–107; RESP 16–20; O2SAT 96–100
[2017-01-01] MEDS: HYDROmorphone PCA 0.2 mg/mL 30 mL Inj IV PRN ×5 (01:44→21:33)
[2017-01-01] MEDS: Ketorolac 15 mg/mL Inj IVPUSH SCH ×4 (01:44→20:45)
[2017-01-01] MEDS: 0.9% Sodium Chloride 1,000 ML IV SCH ×3 (05:50→23:45)
--- NOTE | 2017-01-01 06:07 | NUR ---
Overnight Patient A&Ox3, stable SpO2 on room air. Continues on PURIFICATION OPERATOR HELPER with opioid tolerant dosing; tylenol given for breakthrough pain and benadryl q6 hours. Patient reluctant to converse with staff overnight. Continue to monitor.
[2017-01-01 06:12] LABS: BASOPHILS % (AUTO) 0.3 % (0-3); EOSINOPHILS % (AUTO) 10.2 % (0-5); MONOCYTES % (AUTO) 8.3 % (4-12); Mean Corpuscular Hemoglobin 26.7 pg (27.0-35.0); NEUTROPHILS % (AUTO) 51.9 % (40-74); Platelet Count 455 bil/L (150-400)
[2017-01-01 06:38] LABS: Magnesium 1.9 mg/dL (1.6-2.6)
--- NOTE | 2017-01-01 08:38 | PATH ---
FLOW CYTOMETRY REPORT Attending Physician:YARY Jackson SUPERCHARGE REPAIR SUPERVISOR RESULT DISPLAY AND UNSIGNED HARD COPIES ARE UNOFFICIAL. CASE STATUS: Signed Out CASE NUMBER: [id number] DATE COLLECTED:12/27/2016 00:00 SPECIMEN: Peripheral Blood CLINICAL HISTORY: LEUKOCYTOSIS SICKLE CELL CRISIS ELEVATED TEMPERATURES FINAL DIAGNOSIS: Peripheral Blood: Mild leukocytosis without immature forms, dysplastic cells, atypical lymphocytes or blasts. Marked normocytic anemia with target cells, microspherocytes and polychromasia. Platelets: Normal in quantity and morphology. ICD10: D72.9 NOTE: The peripheral blood morphology did not show evidence of an abnormal lymphocytes, granulocyte or monocyte population. This correlates with the accompanying flow cytometric analysis that showed no significant immunophenotypic abnormality. The flow cytometry results are reported below. Flow Interpretation: ([id number]) Peripheral blood: No significant immunophenotypic abnormality; no evidence of a lymphoproliferative process or a myeloid stem cell disorder; see Comment. Flow Comment: Flow cytometric analysis of the peripheral blood shows 51% granulocytes, 36% lymphocytes, and 12% monocytes. Lymphocytes consist of 66% mature T cells with a CD4:CD8 ratio of 1.7, 16% mature polyclonal B cells with a kappa:lambda ratio of 1.4 and 7% NK cells. Granulocytes express the normal repertoire of mature maturation markers including appropriate levels of CD10, CD11b, CD16 and CD15 without aberrant antigen expression or significant leftward skewing of the CD13/CD16 plot that would suggest immature forms. No aberrant antigens such as CD56 are expressed on the monocyte population. Blasts expressing CD34 are below the limit of detection. In summary, the flow cytometric findings demonstrate no significant immunophenotypic abnormality. There is no evidence to support a lymphoproliferative process or myeloid stem cell disorder. GROSS DESCRIPTION: RECEIVED 2 UNSTAINED SLIDES RECEIVED 1 GREEN TOP TUBE RECEIVED 1 LAVENDAR TOP TUBE ACCOMPANYING SPECIMEN IS A REQUISITION FOR FLOW CYTOMETRY WITH LEUKEMIA/LYMPHOMA IMMUNOPHENOTYPING PROFILE. MICRO DESCRIPTION: Review of the peripheral smear show mature WBC without immature forms, dysplastic cells, atypical lymphocytes or blasts. RBC exhibit marked target cells with microspherocytes and polychromasia. Classic sickle cells are not identified. Platelets are within normal range. ICD-9 CODES: Electronically Signed Out Greg Canchola MD, PhD [facility] [address], [place] [address] Technical component performed at [facility], [address], [place], [address]
[2017-01-01] MEDS: Pantoprazole 40 mg ER24 Tablet PO SCH (10:24)
--- NOTE | 2017-01-01 16:31 | PCM.PNMED ---
Subjective Date of Service Jan 01, 2017 Subjective Patient has no new complaints. He continues to have pain which is generalized and also in his feet. Patient has no nausea, no vomiting, no diarrhea, no fever , no chills no diaphoresis. Since we increased the dose of his PRESERVATIONIST Dilaudid yesterday he has little to complain about today. He is eating and drinking well. Exam Vital Signs Vital Sign - Last Date Time Temp Pulse Resp B/P Pulse Ox O2 Delivery O2 Flow Rate FiO2 01/01/17 12:58 99 01/01/17 12:28 36.9 18 119/72 98 Room Air 12/26/16 04:40 2.00 Intake and Output 12/31/16 12/31/16 01/01/17 Cumulative From/Thru 15:00 23:00 07:00 12/22/16 20:44 - 01/01/17 06:02 Intake Total 2875 ml 3414 ml 82906 ml Output Total 2100 ml 1200 ml 38393 ml Balance 775 ml 2214 ml 37321 ml Intake Oral 2875 ml 1200 ml 88964 ml IV Total 2214 ml 32195 ml Output Urine Total 2100 ml 1200 ml 97864 ml # Voids 4 # Bowel Movements 1 7 Exam General: Patient is in no apparent distress. He is lying comfortably in bed. HEENT: Head is atraumatic and normocephalic. Eyes: Pupils are pinpoint but equally round and reactive to light and accommodation. Extraocular muscles are intact. Sclera are white, anicteric. Subconjunctival mucosa is pink. Ears and nose are unremarkable. Oropharynx: There is no mucosal lesions, there is no thrush, there is no pharyngitis. Neck: Is supple, there are no nodes, or masses or tenderness. Chest: Is clear to auscultation and percussion. There are no rales, rhonchi, wheezes or rubs. Heart: Rate, rhythm is regular. There is no murmur, rub or gallop. Abdomen: Good bowel sounds are present. Abdomen is soft, with nonspecific tenderness, no organomegaly or masses were appreciated. Extremities: Are symmetrical and well perfused. There is some edema of the right upper extremity primarily distal to the elbow, which has improved since yesterday. There is no cellulitis, no rash. There is no rubor calor or dolor. The lower extremities are well-perfused and are unchanged. Neurologic: There are no focal neurological deficits. Cranial nerves II through XII are intact. There are no sensory or motor deficits. Psychiatric: Patients mood is calm and shows no sign of agitation. Genital: Deferred Rectal: Deferred Lab and Diagnostics Result Diagram: 01/01/1752901/01/17529 Microbiology Blood cultures are all negative. Influenza screen was negative, and viral PCR nasopharyngeal was negative. X-Rays, CTs and MRIs Chest x-ray: Awaiting formal read by radiology. Patient appears to have had some infiltrate in the right base on prior exam. Today, patient appears more rotated in portable film and could be cause of apparent increase in the appearance of this infiltrate. Uncertain if this is the case but would like to plan for short- interval repeat 2-view chest. 12-lead ECG Rate 117 QTc [address] elevations - do not appear to be changed from prior exam. Could represent early repolarization pattern. Cardiac Echo Impressions Echocardiogram Report Name: MAYE MENDEZ JStudy Date: 12/26/2016 Height: 71 in Hospital Exam Location: [facility] Weight: 174 lb Gender: Male BSA: 2.0 m2 : 1990 Age: 26 yrs BP: 111/65 mmHg Reason For Study: FEVER Ordering Physician: Performed By: Roberto Dowell Referring Physician: Moreno BRAGG Interpretation Summary The left ventricle is normal in size. Left ventricular systolic function is normal without focal wall motion abnormalities. The ejection fraction is estimated to be 60-65%. The right ventricle is normal in size and function. Pulmonary artery pressures cannot be estimated because of the lack of a measurable TR jet velocity. There is mild biatrial enlargement. There is no significant valvular heart disease. The aortic root is normal size. Compared to the prior echo report on 09/05/2016, there is no significant change. Assessment & Plan Patient is a 26-year-old male with sickle cell crisis ongoing. Fever appears to have resolved. Acute sickle cell pain episode, present on admission. -Continue Supportive measures with fluids, oxygen and analgesia. -We have changed his PRESERVATIONIST to Dilaudid 0.6 mg instead of 0.4 mg IV every 15 minutes when necessary. -Patient's pain appears to be better controlled. Sickle cell acute chest syndrome, with previous fever and pulmonary infiltrates. -Discontinue ceftazidime and azithromycin as per recommendations from ID - Continue with Oxygen and analgesia - Add Toradol to patient's analgesia regimen patient currently on PRESERVATIONIST pump -We will repeat chest x-ray Right foot pain. Present on admission. Most likely secondary to vaso- occlusive syndrome -X-ray negative - Concern is for bone infection or bone infarct. CT of the foot is fairly nonspecific but suggested possible distal tibia bone infarct which is not an area of tenderness. There is also area of abnormal bone signal in the great toe which is not the most tender area of the foot. - MRI of the foot suggestive of osteomyelitis versus bone infarct secondary to sickle cell -Consulted podiatry (Dr. Urbano) who recommended the following: "His serum uric acid test came back 5.4, indicating that it is not elevated systemically. However, I still feel that anti-inflammatory treatment is helpful for this patient for a period of 2-3 days. Toradol has been started at 15 mg every 6 hours. At this point I would continue that for 3 days. The only 2 ways to assess for osteomyelitis, if her white blood cell count remains elevated and ESR does not trend down after 3 days, would be a white blood cell labeled bone scan versus a bone biopsy. At this point, due to the fragile nature of the soft tissue injury, I would hold off on the bone biopsy. The soft tissue envelope could result in a nonhealing wound, if not properly recovered for such a procedure. My plan is to followup on Sunday and assess response at that time." We will await Dr. Urbano's recommendations Persistent fevers, present on admission, now resolved off antibiotics -This patient has had multiple blood cultures which are negative. -Viral PCR negative -2-D echo yesterday relatively unchanged from previous echo no acute valvular processes noted. -Infectious disease with Dr. Oneal was consulted and recommended the following : "1. Hold off on antibiotics and observe. 2. I would consider consulting Hematology, as well as Podiatry. 3. Will continue to follow with you. 4. Note that I will be out of town from tomorrow until January 02 but I can be reached by telephone about this or any other case." -Hematology ordered flow cytometry with leukocytes and lymphocytes as per Dr. George: Flow cytometry shows no significant amino phenotypic abnormalities, no evidence of lymphoproliferative process or a myeloid stem cell disorder. Chronic hepatitis C, present on admission. 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 -Hemoglobin and hematocrit currently stable -We will continue to monitor History of tobacco, methamphetamine, heroin, and cocaine use. 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 - U-tox from ED not done -Urine tox was negative however we will send for repeat as this may have been incorrect as the patient is on opiate medication currently - Continue to rehab/pre vocational counselor patient about cessation of these substances. -Social work following the patient currently is refusing any resources for substance abuse counseling. It was reported that the patient stated that his last history of IV drug use was over 5 months ago. This is prior to going to rehabilitation for 30 days. He has smoked methamphetamine twice or 3 times since then but no IV drug use. 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 - Antiemetic available PRN. - Antacid available PRN. - Bowel regimen available PRN. Disposition: Patient was seen and examined by podiatry and hematology oncology. Podiatry stated that the patient's right foot pain is most likely secondary to the sickle cell crises that he is having and less likely to osteomyelitis. They were concerned that the patient may be having an increase in uric acid and this could also be contributing to the patient's pain however uric acid has been normal at 5.4. They just see the patient is having a lot of inflammatory joint pain most likely secondary to the sickle cell crisis and recommend Toradol for analgesia. Oncology has also seen the patient and feels that the patient's pain is coming from vaso-occlusive syndrome. They also recommend using NSAIDs such as Toradol in order to give the patient some relief. They also agreed that the patient should not continue on antibiotics but to recommend that if his hemoglobin drops under 9 that he should be transfused at least 1 unit of packed red blood cells. The patient's lactate dehydrogenase level is elevated at 274. Patient has also been having difficulty maintaining IV access. A PICC line will be ordered and placed in the right upper extremity. Right upper extremities showing some swelling, which has improved since yesterday therefore we will insinuated to keep elevated with several pillows. Pain Evaluation: Adequate Pain Control GI Prophylaxis: Proton Pump Inhibitor VTE Prophylaxis: Sub-Q Enoxaparin Resuscitation Status: CPR: Attempt Resuscitation Channing Caruso MD Jan 01, 2017 16:31
--- NOTE | 2017-01-01 18:07 | NUR ---
Uneventful shift Patient alert and oriented x3, up SBA/1PA per RN recommendations however patient gets up adlib. Continuous spo2 97% on RA, no n/v/d/c or abdominal pain, no SOB, tolerating PO intake well, voiding without complication, Afebrile. Reported pain 3-4/10 throughout shift, scheduled Toradol given, Roxicodone given x1 -- in no apparent distress. DRILLER OPERATOR at 0.6mg with 15 minute lockout max 2.4mg per hour per MD orders. Right arm post IV infiltration still swollen, elevated on pillows-- patient reports decrease in pain, MD aware.
--- NOTE | 2017-01-01 18:08 | PCM.PNPOD ---
Subjective Visit Information: Reason for Visit Sickle Cell With Vaso Occlusive Crisis Surgery/Surgery Date Post-Op Day # Date of Admission: Dec 23, 2016 at 00:43 Hospital Day # Subjective: Felling better today, toes less tender and he moves them actively. Gastrointestinal: Good Appetite Pain Management: PHYSICIAN ASSISTANT with Basal Objective Vital Sign - Last Date Time Temp Pulse Resp B/P Pulse Ox O2 Delivery O2 Flow Rate FiO2 01/01/17 16:25 37.0 98 16 113/56 98 Room Air 12/26/16 04:40 2.00 Intake and Output 12/31/16 12/31/16 01/01/17 Cumulative From/Thru 15:00 23:00 07:00 12/22/16 20:44 - 01/01/17 06:02 Intake Total 2875 ml 3414 ml 78827 ml Output Total 2100 ml 1200 ml 33239 ml Balance 775 ml 2214 ml 32363 ml Intake Oral 2875 ml 1200 ml 10606 ml IV Total 2214 ml 33308 ml Output Urine Total 2100 ml 1200 ml 74923 ml # Voids 4 # Bowel Movements 1 7 Result Diagram: 01/01/17 0530 01/01/17 0530 Lab Test 12/22/16 21:35 12/23/16 10:50 12/23/16 13:00 12/26/16 03:00 Reticulocyte Count,Calculated 2.5% (0.6-2.6) Hold Purple Top Tube Received (Received) Hold Blue Top Tube Received (Received) Lactate Dehydrogenase 274U/L (100-190) Lipase 14U/L (13-60) Hold Red Top Tube Received (Received) Hold [place] Top Tube Received (Received) Lactic Acid Level 1.1mmol/L (0.4-2.0) Phosphorus Level 2.7mg/dL (2.5-4.9) Urine Color Yellow (YELLOW) Urine Appearance Clear (CLEAR,HAZY) Urine pH 7.0 (5.0-8.0) Urine Specific [place] 1.009 (1.003-1.035) Urine Protein Negativemg/dL (NEG,TRACE) Urine Glucose (UA) Negativemg/dL (NEGATIVE) Urine Ketones Negativemg/dL (NEGATIVE) Urine Occult Blood Negative (NEGATIVE) Urine Nitrite Negative (NEGATIVE) Urine Bilirubin Negative (NEGATIVE) Urine Urobilinogen Normalmg/dL (NORMAL) Urine Leukocyte Esterase Negative (NEGATIVE) Urine RBC 0-2/hpf (0-2) Urine WBC 0-5/hpf (0-5) Urine Epithelial Cells None/hpf (NONE-MOD) Urine Crystals None seen (NONE SEEN) Urine Bacteria None/hpf (NONE-FEW) Urine Hyaline Casts None/lpf (NONE) Urine Granular Casts None seen (NONE SEEN) Urine Waxy Casts None seen (NONE SEEN) Urine Red Blood Cell Casts None seen (NONE SEEN) Urine White Blood Cell Casts None seen (NONE SEEN) Urine Mucus None seen (None Seen) Urine Trichomonas None seen (NONE SEEN) Urine Yeast None (NONE SEEN) Urinalysis Comment None Urine Culture Reflexed Not indicated Hold Hernandez Top Tube Received (Received) Test 12/28/16 17:00 12/29/16 07:30 12/30/16 09:32 12/30/16 13:28 Urine Opiates Screen Negative Urine Methadone Screen Negative Urine Barbiturates Screen Negative Urine Amphetamines Screen Negative Urine Benzodiazepines Screen Negative Urine Cocaine Metabolite Screen Negative Urine Cannabinoids Screen Negative Procalcitonin 0.13ng/mL (0.00-0.08) Uric Acid 5.4mg/dL (2.6-7.2) C-Reactive Protein 6.2mg/dL (0.0-0.5) Erythrocyte Sedimentation Rate 67mm/hr (0-15) Test 01/01/17 05:30 White Blood Count 12.9th/mm3 (3.8-10.1) Red Blood Count 3.41mil/mm3 (4.40-5.80) Hemoglobin 9.1g/dL (13.8-17.2) Hematocrit 25.9% (41.0-50.0) Mean Corpuscular Volume 76.0fL (81-100) Mean Corpuscular Hemoglobin 26.7pg (27.0-35.0) Mean Corpuscular Hemoglobin Concent 35.1% (32.0-37.0) Red Cell Distribution Width 18.7% (12.3-15.4) Platelet Count 455bil/L (150-400) Neutrophils (%) (Auto) 51.9% (40-74) Lymphocytes (%) (Auto) 29.0% (14-46) Monocytes (%) (Auto) 8.3% (4-12) Eosinophils (%) (Auto) 10.2% (0-5) Basophils (%) (Auto) 0.3% (0-3) Sodium Level 139mEq/L (134-144) Potassium Level 4.4mEq/L (3.5-5.2) Chloride Level 101mEq/L (97-108) Carbon Dioxide Level 27mmol/L (18-29) Blood Urea Nitrogen 6mg/dL (6-20) Creatinine 0.69mg/dL (0.76-1.27) Estimat Glomerular Filtration Rate 147mL/min (>59) Glucose Level 154mg/dL (60-99) Calcium Level 8.4mg/dL (8.5-10.1) Magnesium Level 1.9mg/dL (1.6-2.6) Total Bilirubin 0.7mg/dL (0.0-1.2) Aspartate Amino Transf (AST/SGOT) 20U/L (0-50) Alanine Aminotransferase (ALT/SGPT) 25U/L (0-44) Alkaline Phosphatase 105U/L (25-150) Total Protein 6.1g/dL (6.4-8.4) Albumin 2.9g/dL (3.4-5.0) Exam General: Alert, Oriented X3, Moderate Distress (due to pain) Lower Extremities: Right: Edema localized (toes, improved) Lower Extremity Pulses: Palpable: Left Dorsalis Pedis Left Posterior Tibal Right Dorsalis Pedis Right Posterior Tibal Postop Sensory Motor: Distal Motor Intact Podiatry WOUND : Wound Location/Description Demarcated areas of skin necrosis on right lesser toes and nail beds are sloughing off and surrounding skin has improved texture and capillary refill. Assessment & Plan Problems: (1) Foot pain, right Plan: His serum uric acid test came back 5.4, indicating that it is not elevated systemically. However, I still feel that anti-inflammatory treatment is helpful for this patient for a few days. Toradol has been given at 15 mg every 6 hours. At this point, due to the fragile nature of the soft tissue injury, I would hold off on the bone biopsy. The soft tissue envelope could result in a nonhealing wound, if not properly recovered for such a procedure. My plan is to apply topical Bacitracin to open areas twice daily without dressing to avoid pressure pain. I will followup on Sunday and assess again at that time. Draw ESR and CRP again tomorrow. Status: Acute ICD Code: M79.671 VTE Prophylaxis: Sub-Q Enoxaparin Genet Urbano DPM Jan 01, 2017 18:08
[2017-01-01] MEDS: Bacitracin Zinc 15 Gm Ointment TOPICAL SCH (20:56)
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
[2017-01-02] VITALS (9 sets, daily range): BP systolic 127–146; BP diastolic 70–87; PULSE 94–115; RESP 14–20; O2SAT 94–100
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
[2017-01-02] MEDS: Ketorolac 15 mg/mL Inj IVPUSH SCH ×4 (04:03→20:44)
[2017-01-02] MEDS: HYDROmorphone PCA 0.2 mg/mL 30 mL Inj IV PRN ×2 (04:36→11:05)
[2017-01-02] MEDS: Pantoprazole 40 mg ER24 Tablet PO SCH (08:48)
[2017-01-02] MEDS: Bacitracin Zinc 15 Gm Ointment TOPICAL SCH ×2 (08:52→20:49)
[2017-01-02 09:06] LABS: BASOPHILS % (AUTO) 0.6 % (0-3); EOSINOPHILS % (AUTO) 10.1 % (0-5); MONOCYTES % (AUTO) 6.1 % (4-12); Mean Corpuscular Hemoglobin 27.4 pg (27.0-35.0); Mean Corpuscular Volume 76.3 fL (81-100); NEUTROPHILS % (AUTO) 49.7 % (40-74); Platelet Count 455 bil/L (150-400)
[2017-01-02 09:31] LABS: Magnesium 1.6 mg/dL (1.6-2.6)
[2017-01-02 09:40] LABS: ERYTHROCYTE SEDIMENTATION RATE 34 mm/hr (0-15)
[2017-01-02] MEDS: 0.9% Sodium Chloride 1,000 ML IV SCH ×2 (09:45→12:38)
--- NOTE | 2017-01-02 09:48 | DRSVH ---
PROCEDURE: X-RAY CHEST, TWO VIEWS ([id number]) INDICATIONS: 26 year-old male with bilateral pulmonary infiltrates. TECHNIQUE: 2 views of the chest were acquired. COMPARISON: [facility], CR, XR CHEST 1VW (PORTABLE), 12/25/2016, 9:37. [facility], CR, XR CHEST 2VW, 12/23/2016, 12:57. [facility], CR, XR CHEST 1VW (PORTABLE), 12/22, 22:28. FINDINGS: Surgical changes and devices: New right PICC is present, with tip in the superior vena cava. Lungs and pleura: Bibasilar airspace opacities have resolved. Small bilateral subpulmonic pleural eff usions persist. No pneumothorax. Mediastinum: Mediastinal contours are normal. Heart size is normal. Bones and chest wall: No suspicious bony abnormalities. Soft tissues appear unremarkable. IMPRESSION: 1. Interval resolution of bibasilar bronchopneumonia. 2. Small bilateral subpulmonic pleural effusions persist, of uncertain etiology. Dictated by: Parveen Oliva M.D. on 01/02/2017 at 9:45 Approved by: Parveen Oliva M.D. on 01/02/2017 at 9:47
[2017-01-02] MEDS ORDERED: Ondansetron 8 mg ODT Tablet PO PRN (13:45)
[2017-01-02] MEDS ORDERED: MetoCLOpramide 5 mg/mL 2 mL Inj IVPUSH PRN (13:45)
[2017-01-02] MEDS ORDERED: Ondansetron 2 mg/mL 2 mL Inj IVPUSH PRN (13:45)
[2017-01-02] MEDS: MORPHINE PCA 1 MG/ML IV PRN ×2 (14:16→19:45)
--- NOTE | 2017-01-02 15:14 | PCM.PNMED ---
Subjective Date of Service Jan 02, 2017 Subjective Patient has no new complaints. continues to have pain in his right toes. feels Dilaudid is not covering his pain effectively. Exam Vital Signs Vital Sign - Last Date Time Temp Pulse Resp B/P Pulse Ox O2 Delivery O2 Flow Rate FiO2 01/02/17 14:34 37.1 103 16 133/85 95 Room Air Intake and Output 01/01/17 01/01/17 01/02/17 Cumulative From/Thru 15:00 23:00 07:00 12/22/16 20:44 - 01/02/17 05:14 Intake Total 1946 ml 193 ml 01165 ml Output Total 3350 ml 73871 ml Balance -1404 ml 193 ml 64478 ml Intake Oral 1360 ml 53262 ml IV Total 586 ml 193 ml 00725 ml Output Urine Total 3350 ml 23413 ml # Voids 4 # Bowel Movements 7 Exam General: Patient is in no apparent distress. He is lying comfortably in bed. HEENT: Head is atraumatic and normocephalic. Sclera are white, anicteric. Oropharynx: There is no mucosal lesions, there is no thrush, there is no pharyngitis. Neck: supple with full ROM Chest: clear to auscultation bilat Heart: Rate, rhythm is regular. Abdomen: soft, nt, nd, +bs Extremities: no c/c/e. some erythema of right toes and tender to palpation Neurologic: There are no focal neurological deficits. Psychiatric: Patients mood is calm and shows no sign of agitation. IVs and Medications Medications Reviewed: Medications were reviewed in detail Lab and Diagnostics Result Diagram: 01/02/17 0900 01/02/17 0900 Microbiology Blood cultures are all negative. Influenza screen was negative, and viral PCR nasopharyngeal was negative. X-Rays, CTs and MRIs Chest x-ray: Awaiting formal read by radiology. Patient appears to have had some infiltrate in the right base on prior exam. Today, patient appears more rotated in portable film and could be cause of apparent increase in the appearance of this infiltrate. Uncertain if this is the case but would like to plan for short- interval repeat 2-view chest. 12-lead ECG Rate 117 QTc [address] elevations - do not appear to be changed from prior exam. Could represent early repolarization pattern. Cardiac Echo Impressions Echocardiogram Report Name: MAYE MENDEZtthom Date: 12/26/2016 Height: 71 in Hospital Exam Location: [facility] Weight: 174 lb Gender: Male BSA: 2.0 m2 : 1990 Age: 26 yrs BP: 111/65 mmHg Reason For Study: FEVER Ordering Physician: Performed By: Roberto Dowell Referring Physician: Moreno BRAGG Interpretation Summary The left ventricle is normal in size. Left ventricular systolic function is normal without focal wall motion abnormalities. The ejection fraction is estimated to be 60-65%. The right ventricle is normal in size and function. Pulmonary artery pressures cannot be estimated because of the lack of a measurable TR jet velocity. There is mild biatrial enlargement. There is no significant valvular heart disease. The aortic root is normal size. Compared to the prior echo report on 09/05/2016, there is no significant change. Assessment & Plan 26 year old male with a history of sickle cell anemia and polysubstance abuse presented to [facility] on 12/22/16 with right foot pain. # Acute sickle cell pain episode, present on admission. -Continue Supportive measures with fluids, oxygen and analgesia. -His CHICKEN CATCHER was changed earlier to Dilaudid 0.6 mg instead of 0.4 mg IV every 15 prn. Today he complains that Dilaudid not effective and so tried a shot of Morphine which he says works better. Will ask Pharmacy to change Dilaudid to equivalent Morphine dose CHICKEN CATCHER # Sickle cell acute chest syndrome, with previous fever and pulmonary infiltrates. poa. resolved - Ceftazidime and Azithromycin as per recommendations from ID were stopped - Continue with Oxygen and analgesia - Toradol prn - appreciate hematology consult. will f/u w/ recs # Right foot pain. Present on admission. Most likely secondary to vaso- occlusive syndrome - Concern is for bone infection or bone infarct. CT of the foot is fairly nonspecific but suggested possible distal tibia bone infarct which is not an area of tenderness. There is also area of abnormal bone signal in the great toe which is not the most tender area of the foot. - MRI of the foot suggestive of osteomyelitis versus bone infarct secondary to sickle cell - Appreciate podiatry consult. will f/u w/ recs # Persistent fevers, present on admission, now resolved off antibiotics - multiple blood cultures which are negative. - Viral PCR negative - 2-D echo relatively unchanged from previous echo no acute valvular processes noted. - appreciate ID consult. will f/u w/ recs # Chronic hepatitis C, present on admission. -Currently Stable # Chronic anemia secondary to sickle cell disease, present on admission. - Hemoglobin and hematocrit currently stable - continue to monitor # History of tobacco, methamphetamine, heroin, and cocaine use. -Social work following # Chronic 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 - Presume stable. Dispo: 2-4 days pending further recs by podiatry, hematology and pain control GI Prophylaxis: Proton Pump Inhibitor VTE Prophylaxis: Sub-Q Enoxaparin Resuscitation Status: CPR: Attempt Resuscitation Time spent 35 min Jorge Panchal Jan 02, 2017 15:14
--- NOTE | 2017-01-02 15:48 | NUR ---
Social Work Continued Discharge Planning EMR reviewed. Patient was discussed in daily rounds. Podiatry is following patient and to reassess on Sunday. SW met with patient at bedside to discuss plans of care. Patient plans to turn himself into the police upon discharge, as patient has a current warrant out fo his arrest. Patient also plans to follow-up with the Suboxone clinic at discharge as referral made on patient behalf. No other needs identified by patient at this time. SW will continue to follow. Plan: To follow up with Suboxone clinic - referral made. SW will continue to follow pending clinical course. Liz RODRIGUEZ
--- NOTE | 2017-01-02 17:59 | NUR ---
Pain, Medications Pt reports pain level of 3/10 today, occasionally up to 4/10. Pt asked for morphine MACHINE BUNCH MAKER instead of dilaudid b/c he thought morphine would manage his pain better. Became angry when not changed immediately, yelling/cursing. MACHINE BUNCH MAKER changed as soon as available. Pt pushing MACHINE BUNCH MAKER button frequently. Pain level remains unchanged despite new medication. Pt also requesting IV benadryl and po oxycodone every 2 hours. Medicated within ordered limits. Pt also asked for cigarettes to be returned to his room. Denies smoking in bathroom despite clear evidence found by previous shift. Cigarettes remain locked in med drawer outside room.
--- NOTE | 2017-01-02 18:01 | PROG NOTE ---
[address] [address] PROGRESS NOTE PATIENT: MAYE MENDEZ : 1990 MR#: [id number] ADMIT: 12/23/2016 JOB ID: [id number] DATE: 01/02/2017 REASON FOR FOLLOWUP: Infection versus infarction, right foot toes. INTERVAL HISTORY: Over the long weekend, the patient has continued to report moderately severe pain in all five toes on the right foot. This has been associated with numbness in those same toes and a sensation that he cannot properly move or control the toes of the right foot. The pain continues to require narcotics for relief. He has had no fevers, chills, sweats, or cough. His bilateral chest wall pain is diminishing and notes no new GI symptoms. PHYSICAL EXAMINATION: Reveals an afebrile gentleman. His last temperature was three days ago at 38 degrees, pulse 90-100, respiratory rate 16, blood pressure 133/85, saturating well on room air. He is in no apparent distress but certainly his mood and affect appear diminished. His mental status is normal. His oral cavity negative. Lungs quite clear. Cardiac tones without new murmur. Abdomen benign. The toes on the right foot are all slightly tender to deep palpation or squeezing as they were before. There is no warmth, erythema or drainage, however. He can move the toes on the right foot but not nimbly as he can the ones on the left and this has really not changed since I saw him four days ago. LABORATORIES: Include a white count persistently about 11,000, today 11,600. Platelets remain slightly elevated at 455. He has 10% eosinophils, 34 for sed rate, creatinine is 0.62. Micro studies include the negative blood cultures times 16 bottles now since admission. A repeat chest x-ray was done today. Shows interval resolution of the bibasilar bronchopneumonia that was seen previously. Some small bilateral effusions persist. IMPRESSION: I have discussed this case in detail with Podiatry and have read the ccnp's note. I think all of us are in agreement that the process ongoing in all five toes is vaso-occlusive rather than osteomyelitis. Osteomyelitis of all five toes occurring simultaneously would be extraordinary. This process has failed to improve with two courses of antibiotics. The overall pattern is well described in sickle cell patients though most of them are much younger than this patient. At this point, I see absolutely no indication for antibiotics or additional infectious disease testing. RECOMMENDATIONS: 1. No antibiotics. 2. ID will go ahead and sign off.
--- NOTE | 2017-01-02 19:17 | PROG NOTE ---
[address] [address] PROGRESS NOTE PATIENT: MAYE MENDEZ : 1990 MR#: [id number] ADMIT: 12/23/2016 JOB ID: [id number] DATE: 01/02/2017 DIAGNOSIS: Current admission for vaso-occlusive crisis affecting right-sided toes, improved. HISTORY OF PRESENT ILLNESS: Today, I was able to extract some more history from this patient. He lives in [place] with his parents but for a while he used to live in [place] and used to receive hematology care from Dr. Aric Abraham, cafeteria counter attendant at [facility], who has now retired. The patient used to get monthly supplies of oxycodone and hydroxyurea from Dr. Abraham. Previously, he told me the dosage was 20 mg oxycodone every 4-6 hours, but today he says it was 30 mg. I plan to get his records from [facility]. He has now moved back to [place] and lives with his parents. He has seen Dr. Shruthi Olsen once to establish care, but is in need of a regular cafeteria counter attendant to establish care. Once I review his records from [facility], I will have followup with him tomorrow and I plan to resume his care. With regard to pain in his right-sided toes, that is quite improved. On today's exam, I do not notice the increased warmth across his distal right foot, and the discharge from skin ulcerations seems to have dried up. His toes are not nearly as tender as they were last week. He appears resting comfortably in bed. He has been afebrile since three days ago. Vital signs are normal except borderline tachycardia. LABORATORY DATA: Reviewed. He has elevated leukocyte count and platelet count, most likely due to hyposplenism. Hemoglobin, however, is around 9. LDH was only slightly elevated and retic count normal, ruling out active hemolysis. His blood glucose has been persistently elevated. IMPRESSION AND PLAN: 1. Vaso-occlusive crisis of the right foot. This is quite improved. I think this patient can be discharged tomorrow. We just need to the figure out his home oxycodone regimen, and give him enough supply for at least two weeks until I see him in the office. I will try to get records from [facility] and review with him tomorrow. 2. I am not sure if he is diabetic or not. His blood sugars have been persistently elevated. I will place an order for A1c to be checked tomorrow morning. We need to ask him about family history of diabetes.
[2017-01-03] VITALS (9 sets, daily range): BP systolic 109–133; BP diastolic 65–84; PULSE 58–130; RESP 15–21; O2SAT 88–96
[2017-01-03] MEDS: Ketorolac 15 mg/mL Inj IVPUSH SCH ×4 (01:31→20:26)
[2017-01-03] MEDS: MORPHINE PCA 1 MG/ML IV PRN ×2 (02:51→09:41)
--- NOTE | 2017-01-03 04:33 | NUR ---
Behavior 0400 Pt cursing and refusing to wear his pulse ox. States that "The thing is beeping all night". Explained the importance of wearing the pulse ox, pt does not accept and keeps repeating that staff don't fix the problem. Pain medication administered as scheduled. Denies chest pain, O2 sats going low. Will notify . Will continue to monitor. Addendum: 01/03/17 at 0552 by SERGIO HOPPER RN Pt finally calmed down and agrees to wear the pulse ox after long negotiation.
--- NOTE | 2017-01-03 05:25 | NUR ---
COMMUNITY AMBASSADOR Cleared 77.3 on COMMUNITY AMBASSADOR pump. Addendum: 01/03/17 at 0550 by SERGIO HOPPER RN Correction 77.3mg
[2017-01-03 05:37] LABS: BASOPHILS % (AUTO) 0.4 % (0-3); Mean Corpuscular Hemoglobin 26.9 pg (27.0-35.0)
[2017-01-03 05:40] LABS: EOSINOPHILS % (AUTO) 8.8 % (0-5); MONOCYTES % (AUTO) 4.5 % (4-12); Mean Corpuscular Volume 77.8 fL (81-100); NEUTROPHILS % (AUTO) 55.7 % (40-74); Platelet Count 393 bil/L (150-400)
[2017-01-03] MEDS: 0.9% Sodium Chloride 1,000 ML IV SCH ×2 (05:45→15:45)
[2017-01-03 05:59] LABS: Magnesium 1.6 mg/dL (1.6-2.6)
[2017-01-03] MEDS: Pantoprazole 40 mg ER24 Tablet PO SCH (08:47)
[2017-01-03] MEDS: Bacitracin Zinc 15 Gm Ointment TOPICAL SCH ×2 (08:47→20:31)
[2017-01-03] MEDS: oxyCODONE ER 10 mg ER12 Tablet PO SCH ×2 (11:20→20:26)
--- NOTE | 2017-01-03 15:51 | PCM.PNMED ---
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 denies any other new issues/complaints Exam Vital Signs Vital Sign - Last Date Time Temp Pulse Resp B/P Pulse Ox O2 Delivery O2 Flow Rate FiO2 01/03/17 13:00 37.6 130 21 122/70 89 Room Air 01/03/17 08:41 1.50 Intake and Output 01/02/17 01/02/17 01/03/17 Cumulative From/Thru 15:00 23:00 07:00 12/22/16 20:44 - 01/03/17 06:33 Intake Total 1886 ml 1272 ml 28705 ml Output Total 1550 ml 1600 ml 37380 ml Balance 336 ml -328 ml 90516 ml Intake Oral 1624 ml 1272 ml 45233 ml IV Total 262 ml 14936 ml Output Urine Total 1550 ml 1600 ml 66424 ml # Voids 4 # Bowel Movements 7 Exam General: Patient is in no apparent distress. He is lying comfortably in bed. HEENT: Head is atraumatic and normocephalic. Sclera are white, anicteric. Oropharynx: There is no mucosal lesions, there is no thrush, there is no pharyngitis. Neck: supple with full ROM Chest: clear to auscultation bilat Heart: Rate, rhythm is regular. Abdomen: soft, nt, nd, +bs Extremities: no c/c/e. some erythema of right toes and tender to palpation Neurologic: There are no focal neurological deficits. Psychiatric: Patients mood is calm and shows no sign of agitation. IVs and Medications Medications Reviewed: Medications were reviewed in detail Lab and Diagnostics Result Diagram: 01/03/17 0500 01/03/17 0500 Microbiology Blood cultures are all negative. Influenza screen was negative, and viral PCR nasopharyngeal was negative. X-Rays, CTs and MRIs Chest x-ray: Awaiting formal read by radiology. Patient appears to have had some infiltrate in the right base on prior exam. Today, patient appears more rotated in portable film and could be cause of apparent increase in the appearance of this infiltrate. Uncertain if this is the case but would like to plan for short- interval repeat 2-view chest. 12-lead ECG Rate 117 QTc [address] elevations - do not appear to be changed from prior exam. Could represent early repolarization pattern. Cardiac Echo Impressions Echocardiogram Report Name: MAYE MENDEZ JStudy Date: 12/26/2016 Height: 71 in Hospital Exam Location: [facility] Weight: 174 lb Gender: Male BSA: 2.0 m2 : 1990 Age: 26 yrs BP: 111/65 mmHg Reason For Study: FEVER Ordering Physician: Performed By: Roberto Dowell Referring Physician: Moreno BRAGG Interpretation Summary The left ventricle is normal in size. Left ventricular systolic function is normal without focal wall motion abnormalities. The ejection fraction is estimated to be 60-65%. The right ventricle is normal in size and function. Pulmonary artery pressures cannot be estimated because of the lack of a measurable TR jet velocity. There is mild biatrial enlargement. There is no significant valvular heart disease. The aortic root is normal size. Compared to the prior echo report on 09/05/2016, there is no significant change. Assessment & Plan 26 year old male with a history of sickle cell anemia and polysubstance abuse presented to [facility] on 12/22/16 with right foot pain. # Acute sickle cell pain episode, present on admission. -Continue Supportive measures with fluids, oxygen and analgesia. 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 started him on prn IV Morphine and standing dose of OxyContin bid. Now asking to murrell IV Morphine to Dilaudid instead. # Sickle cell acute chest syndrome, with previous fever and pulmonary infiltrates. poa. resolved - Ceftazidime and Azithromycin as per recommendations from ID were stopped - Continue with Oxygen and analgesia - Toradol prn - appreciate hematology consult. will f/u w/ recs # Right foot pain. Present on admission. Most likely secondary to vaso- occlusive syndrome - Concern is for bone infection or bone infarct. CT of the foot is fairly nonspecific but suggested possible distal tibia bone infarct which is not an area of tenderness. There is also area of abnormal bone signal in the great toe which is not the most tender area of the foot. - MRI of the foot suggestive of osteomyelitis versus bone infarct secondary to sickle cell - Appreciate podiatry consult. will f/u w/ recs (plan was for reassessment today ) # Persistent fevers, present on admission, had resolved off antibiotics but had another spike of fever this am - multiple blood cultures which are negative. - Viral PCR negative - 2-D echo relatively unchanged from previous echo no acute valvular processes noted. - appreciate ID consult. will f/u w/ recs # Chronic hepatitis C, present on admission. -Currently Stable # Chronic anemia secondary to sickle cell disease, present on admission. - Hemoglobin and hematocrit currently stable - continue to monitor # History of tobacco, methamphetamine, heroin, and cocaine use. -Social work following # Chronic 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 - Presume stable. Dispo: 1-2 days pending further recs by podiatry, remaining afebrile, and adequate pain control - of note per discussion with Dr. Holguin today he declines to take on patient' s care as outpatient (after discussion with his PCP) and so any further PO pain med prescription and f/u should be deferred to patient's PCP and may help to set him up with an early f/u w/ PCP prior to d/c to ensure he does not require significant prescription for pain meds GI Prophylaxis: Proton Pump Inhibitor VTE Prophylaxis: Sub-Q Enoxaparin Resuscitation Status: CPR: Attempt Resuscitation Time spent 35 min Jorge Panchal Jan 03, 2017 15:51
[2017-01-03] MEDS ORDERED: diphenhydrAMINE 25 mg Capsule PO PRN (15:55)
--- NOTE | 2017-01-03 16:20 | NUR ---
Pt resting Pt has been calm today, resting in bed with one visitor before lunch. His pain level related to his right foot has stayed between 3-5/10. Pt is wearing continuous pulse ox and staying in the low 90s to high 80s. He has an oxymask but will not keep it on, but for short periods of compliance. Bed is in low position and call light within reach.
--- NOTE | 2017-01-03 16:56 | NUR ---
Med Change Pt requested to switch morphine to Dilaudid, as the morphine is giving pt headache. Additionally, pt wanted Benadryl for itching, notified MD of request, and received new orders. Pt resting comfortably in bed with call light within reach, bed low and locked, intentional rounding.
[2017-01-03] MEDS: HYDROmorphone 0.5 mg/0.5 mL iSecure Syringe IVPUSH PRN ×2 (17:20→21:33)
--- NOTE | 2017-01-03 19:39 | PROG NOTE ---
[address] [address] PROGRESS NOTE PATIENT: MAYE MENDEZ : 1990 MR#: [id number] ADMIT: 12/23/2016 JOB ID: [id number] DATE: 01/03/2017 DIAGNOSES: 1. Vaso-occlusive crisis affecting right-sided toes, improved. 2. Sickle cell disease, presumably hemoglobin SS. 3. Chronic opioid dependence. 4. History of polysubstance abuse. 5. Recurrent fever. SUBJECTIVE: Today, the pain in his right toes is even less than yesterday. He is able to move his toes easily without pain. On exam, I do not appreciate any more increased warmth. There is still some skin peeling. The superficial ulcerations have dried up. On the other hand, he has been febrile today again, and also reports increased sweating. OBJECTIVE: He looks tired. Blood pressure 133/77, heart rate 110, T-max 38.5. LABORATORY DATA: WBC count 13,000, hemoglobin 8.7, platelet count 393,000. Chemistry is normal other than albumin 3.0. IMPRESSION AND PLAN: 1. I think he is past the vaso-occlusive crisis of his right-sided toes. That would not be a reason for continued hospital admission anymore, in my opinion. 2. Recurrent fever is concerning. Previous infectious disease workup was negative. I would like to obtain a CT scan of the chest, abdomen, and pelvis for evaluation of possible abscess. I will place an order for this to be performed tomorrow. Blood cultures have been redrawn. 3. In terms of chronic opioid dependence, I have obtained his previous records from [facility], and discussed his case with our healthcare social worker, with Dr. Panchal and with Shruthi Mackay. They also contacted Dr. Rosa Lopez. Dr. Rosa Lopez has kindly agreed to see this patient as outpatient and to evaluate if she can take responsibility of his pain management. I explained this to the patient today. Whenever he is ready for discharge, he can receive a supply of oxycodone which is given to him at 30 mg every 4 hours p.r.n., until he sees Dr. Lopez. If he remains admitted to hospital by Sunday, Dr. Lopez will be back in town.
--- NOTE | 2017-01-03 20:06 | PROG NOTE ---
[address] [address] PROGRESS NOTE PATIENT: MAYE MENDEZ : 1990 MR#: [id number] ADMIT: 12/23/2016 JOB ID: [id number] DATE: 01/03/2017 SUBJECTIVE: Patient is seen at bedside in no acute distress, talking on the phone and very tearful. OBJECTIVE: The patient is alert, oriented, in no acute distress. Vital signs on my arrival: Temperature 37.5 degrees Celsius, pulse 110, respirations 20, blood pressure 133/77, pulse ox 89 on room air. Labs are showing a downward trend in ESR and CRP as expected from decreasing inflammation. All of the toes on his right foot are showing resolving necrosis and completely resolved edema with complete return of normal sensation and range of motion of all digits. ASSESSMENT: Improving digital necrosis, right foot. PLAN: The patient is going to benefit from an oral anti-inflammatory for an additional one week post hospitalization, supportive measures with pain medication. The anti-inflammatory of choice would be meloxicam 7.5 mg twice a day and otherwise pain regimen as determined by our hospitalist team. He is to follow up in Podiatry in two weeks for reassessment of his toes on the right foot or at least with his primary care provider at that point. There is nothing specifically relating to podiatric care that he will need except supportive care for his sickle cell crisis. There is some concern about the patient being diabetic. If his hemoglobin A1c indicates diabetes, he will need treatment for diabetes and periodic podiatric assessment approximately twice a year. He can be discharged from my standpoint, at this point. Please feel free to contact me tomorrow with any further questions on the recommended treatments.
[2017-01-04] VITALS (11 sets, daily range): BP systolic 111–137; BP diastolic 79–92; PULSE 87–113; RESP 18–20; O2SAT 88–97
[2017-01-04] MEDS: HYDROmorphone 0.5 mg/0.5 mL iSecure Syringe IVPUSH PRN ×3 (02:11→09:58)
[2017-01-04] MEDS: Ketorolac 15 mg/mL Inj IVPUSH SCH ×2 (02:16→08:17)
[2017-01-04] MEDS: 0.9% Sodium Chloride 1,000 ML IV SCH ×2 (02:16→11:45)
[2017-01-04 05:41] LABS: BASOPHILS % (AUTO) 0.6 % (0-3); EOSINOPHILS % (AUTO) 10.7 % (0-5); MONOCYTES % (AUTO) 7.3 % (4-12); Mean Corpuscular Volume 78.4 fL (81-100); NEUTROPHILS % (AUTO) 59.1 % (40-74); Platelet Count 393 bil/L (150-400)
[2017-01-04 06:04] LABS: Magnesium 1.8 mg/dL (1.6-2.6)
--- NOTE | 2017-01-04 06:27 | NUR ---
Pain/BC Pt rates R foot pain at a steady 01/26 and keeps requesting IV pain meds, Dilaudid IV given q 4hrs per pt request, at this point unwilling to solely take PO pain meds. 01/20 BC positive for gram pos. cocci/strep, called and order for IV Zosyn received.
[2017-01-04] MEDS: Piper-Tazo 3.375 Gm/50 mL D5W Minibag Plus - Q8H over 4 hrs IV SCH ×4 (08:17→16:22)
[2017-01-04] MEDS: Pantoprazole 40 mg ER24 Tablet PO SCH (08:17)
[2017-01-04] MEDS: oxyCODONE ER 10 mg ER12 Tablet PO SCH (08:57)
[2017-01-04] MEDS: Bacitracin Zinc 15 Gm Ointment TOPICAL SCH ×2 (09:02→21:28)
--- NOTE | 2017-01-04 10:19 | NUR ---
Palliative Clerk Specialist Note01/04/1710:00AM Palliative Care notified that Dr. Holguin would like pt. to receive outpatient palliative care services for pain medication management. This technical publications writer reviewed pt.'s clinical notes and also his complex psycho-social history. Given pt.'s current CD activity, Palliative Care cannot act as meds prescriber. [facility] Case Management notes indicate pt. will be going to fdc upon discharge from [facility] as he has an active warrant for his arrest. Case Management has referred pt. to the suboxone clinic for assistance with his heroine addiction. This technical publications writer let DO resident, Dr. Baldev Parikh, know that Palliative Care will not manage pt.'s pain medications upon discharge. MICHAEL Lewis, KAT Palliative Clerk Specialist Addendum: 01/05/17 at 1028 by BALDEV BOB SS 01/04/17: [facility] MICHAEL, MICHAEL [place] was also notified that Palliative Care will not be able to prescribe pain medications to pt. due to pt.'s active drug use.
--- NOTE | 2017-01-04 11:20 | NUR ---
NUTRITION ASSESSMENT: ASSESS: 26 YO male admitted for right foot pain. Pt 4 out of 4 positive blood cultures per RN at case management meeting. Pt with good po intake at this time. PMHx: Sickle cell anemia, Polysubstance abuse, ADHD, Chronic low back pain. LABS: Reviewed. Cr 0.66, Glu 113, Ca 8.4, Alb 3.1. MEDS: Reviewed. GI: BM x 1 (12/31) CURRENT WT: 84.5 (bed scale used as pt refused standing scale) Admit wt: 77.5 kg (standing scale) DIET: General. PO 75-100% most meals. EST. NEEDS: [id number] kcals (25-30 kcals/kg BW), 75-95 g protein(1.0-1.2 g/kg BW) NUTRITION DIAGNOSIS: 1.) No nutritional diagnosis at this time. NUTRITION INTERVENTION: 1.) No nutritional interventions as this time. MONITOR / EVAL: PO intake, labs, nutritional status. Follow per low nutritional risk guidelines.
--- NOTE | 2017-01-04 13:40 | NUR ---
off floor pt off floor to have CT of ABD Addendum: 01/04/17 at 1351 by DENNIS EL RN pt back on floor denies pain/distress
--- NOTE | 2017-01-04 15:14 | DRSVH ---
PROCEDURE: CT CHEST, ABDOMEN AND PELVIS [facility] CONTRAST ([id number]) INDICATIONS: Recurrent fever, r/o abcess TECHNIQUE: After the administration of oral and intravenous contrast, 5 mm thick sections acquired from the lung apices to the symphysis. 5 mm coronal and sagittal reformats were performed, with additional 7 mm c oronal MIP reformats through the lungs. For radiation dose reduction, the following was used: autom ated exposure control, adjustment of mA and/or kV according to patient size. COMPARISON: [facility], CR, XR CHEST 2VW, 01/02/2017, 8:30. [facility], CT, CT ABD PELVIS WO CON, 09/03/2016, 8:18. FINDINGS: Image quality: Excellent. CHEST: Lungs and pleura: Subpleural areas of consolidation within the lingula, and the right lower lobe. Tra ce right pleural effusion. No left pleural effusions or pneumothorax. Central and peripheral airways appear patent and normal in caliber. Mediastinum: Heart size is normal. No pericardial effusion. No mediastinal or hilar adenopathy by size criteria. Thoracic aorta and central pulmonary arteries are normal in size. Esophagus is nader l in caliber. No hiatal hernia. Chest wall: No axillary or supraclavicular adenopathy by size criteria. Thyroid gland negative. ABDOMEN: Solid organs: Liver unremarkable. The spleen is atrophic in size. Gallbladder unremarkable. Biliary system is non dilated. Pancreas enhances normally. No adrenal no dules. Kidneys demonstrate normal size and enhancement, without hydronephrosis. Peritoneum and bowel: Bowel loops demonstrate normal wall thickness and caliber. No free fluid or a ir. No abscess. Nodes and vessels: No retroperitoneal or mesenteric adenopathy by size criteria. Aorta and inferior vena cava are normal in size. Miscellaneous: No ventral hernias. PELVIS: Genitourinary: Bladder wall thickness is normal. Miscellaneous: No inguinal hernias or adenopathy. Bones: No suspicious bony lesions. Diffuse early H-shaped appearance of multiple vertebral bodies i n keeping with given clinical history of sickle cell disorder No vertebral body compression fractures. IMPRESSION: No abscess identified. Bibasilar areas of subpleural consolidation and trace right pleural effusion. This could represent mu ltifocal pneumonia or aspiration. This also raises the possibility of acute chest syndrome in the set ting of sickle cell disease. Findings personally telephoned to Dr. Holguin 1512 hrs. 01/04/17. Markedly atrophic, shrunken spleen presumably sequela of splenic infarct. No abscess Dictated by: El Meléndez M.D. on 01/04/2017 at 14:55 Approved by: El Meléndez M.D. on 01/04/2017 at 15:12
--- NOTE | 2017-01-04 15:28 | PCM.PNMED ---
Subjective Date of Service Jan 04, 2017 Subjective Patient notes conditions essentially stable overnight. Pain is slightly improved, denies any fever or chills this morning. Now transitioned off ENAMEL CRACKER pump, and patient responding well to current when necessary medications. Has no other acute complaints at this time. Exam Vital Signs Vital Sign - Last Date Time Temp Pulse Resp B/P Pulse Ox O2 Delivery O2 Flow Rate FiO2 01/04/17 14:44 36.7 92 18 130/87 96 Room Air 01/03/17 08:41 1.50 Intake and Output 01/03/17 01/03/17 01/04/17 Cumulative From/Thru 15:00 23:00 07:00 12/22/16 20:44 - 01/04/17 06:38 Intake Total 2545 ml 2964 ml 71733 ml Output Total 2325 ml 2550 ml 49570 ml Balance 220 ml 414 ml 40359 ml Intake Oral 2300 ml 1772 ml 35508 ml IV Total 215 ml 1192 ml 75737 ml Tube Irrigant 30 ml 30 ml Output Urine Total 2325 ml 2550 ml 87031 ml # Voids 4 # Bowel Movements 7 Exam General: Patient is in no apparent distress. He is lying comfortably in bed. HEENT: Head is atraumatic and normocephalic. Sclera are white, anicteric. Oropharynx: There is no mucosal lesions, there is no thrush, there is no pharyngitis. Neck: supple with full ROM Abdomen: soft, nt, nd, +bs Neurologic: There are no focal neurological deficits. Psychiatric: Patients mood is calm and shows no sign of agitation. IVs and Medications Medications Reviewed: Medications were reviewed in detail Lab and Diagnostics Result Diagram: 01/04/17 0530 01/04/17 0530 Microbiology Blood cultures are all negative. Influenza screen was negative, and viral PCR nasopharyngeal was negative. X-Rays, CTs and MRIs Chest x-ray: Awaiting formal read by radiology. Patient appears to have had some infiltrate in the right base on prior exam. Today, patient appears more rotated in portable film and could be cause of apparent increase in the appearance of this infiltrate. Uncertain if this is the case but would like to plan for short- interval repeat 2-view chest. 12-lead ECG Rate 117 QTc [address] elevations - do not appear to be changed from prior exam. Could represent early repolarization pattern. Cardiac Echo Impressions Echocardiogram Report Name: MAYE MENDEZ JStudy Date: 12/26/2016 Height: 71 in Hospital Exam Location: [facility] Weight: 174 lb Gender: Male BSA: 2.0 m2 : 1990 Age: 26 yrs BP: 111/65 mmHg Reason For Study: FEVER Ordering Physician: Performed By: Roberto Dowell Referring Physician: Moreno BRAGG Interpretation Summary The left ventricle is normal in size. Left ventricular systolic function is normal without focal wall motion abnormalities. The ejection fraction is estimated to be 60-65%. The right ventricle is normal in size and function. Pulmonary artery pressures cannot be estimated because of the lack of a measurable TR jet velocity. There is mild biatrial enlargement. There is no significant valvular heart disease. The aortic root is normal size. Compared to the prior echo report on 09/05/2016, there is no significant change. Assessment & Plan 26 year old male with a history of sickle cell anemia and polysubstance abuse presented to [facility] on 12/22/16 with right foot pain. # Acute sickle cell pain episode, present on admission. - Continue Supportive measures with fluids, oxygen and analgesia. - Stop ENAMEL CRACKER yesterday, transitioning to oral pain medications at this time. Long acting/high potency NSAID with oxycodone for PRN use. - Pt notes pain of syndrome makes sleep very difficult, even relaxing in bed, continues to state IV Benadryl has been best therapy to relax and help him sleep in setting of extreme pain. He notes never experiencing withdrawal, feels it will help him curtail pain medication need. In setting of such severe substance dependence this request is concerning, but also helping to allow more agressive opiate tapering with the addition of a much lower risk medication, so request will be granted at this time with plan to DC prior to discharge. # Sickle cell acute chest syndrome, with previous fever and pulmonary infiltrates. poa. resolved - Ceftazidime and Azithromycin as per recommendations from ID were stopped, however in setting of Bacteremia, Zosyn was initiated yesterday, will be continued. - Continue with Oxygen and analgesia - Appreciate hematology consult. will f/u w/ recs # Right foot pain. Present on admission. Most likely secondary to vaso- occlusive syndrome - Concern is for bone infection or bone infarct. CT of the foot is fairly nonspecific but suggested possible distal tibia bone infarct which is not an area of tenderness. There is also area of abnormal bone signal in the great toe which is not the most tender area of the foot. - Consultation by both podiatry and infectious disease, have suggested pain much more likely basilar occlusive in nature versus osteomyelitic/infectious. - Continue to appreciate podiatry consult. Dr Urbano does not feel further intervention is needed at this time. # Persistent fevers, present on admission, had resolved off antibiotics but had another spike of fever this am - multiple blood cultures which are negative. - Viral PCR negative - 2-D echo relatively unchanged from previous echo no acute valvular processes noted. - appreciate ID consult. will f/u w/ recs - CT abd actually suggesting possible acute chest vs. pneumonia in lungs. May consider further pulmonary evaluation as source. # Chronic hepatitis C, present on admission. -Currently Stable # Chronic anemia secondary to sickle cell disease, present on admission. - Hemoglobin and hematocrit currently stable - continue to monitor # History of tobacco, methamphetamine, heroin, and cocaine use. -Social work following # Chronic 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 - Presume stable. Dispo: 1-2 days pending further recs by podiatry, remaining afebrile, and adequate pain control - of note per discussion with Dr. Holguin today he declines to take on patient' s care as outpatient (after discussion with his PCP) and so any further PO pain med prescription and f/u should be deferred to patient's PCP and may help to set him up with an early f/u w/ PCP prior to d/c to ensure he does not require significant prescription for pain meds Pain Evaluation: Adequate Pain Control GI Prophylaxis: Proton Pump Inhibitor VTE Prophylaxis: Sub-Q Enoxaparin Resuscitation Status: CPR: Attempt Resuscitation Time spent 35 minutes Arnoldo Flores DO Jan 04, 2017 15:28
--- NOTE | 2017-01-04 15:53 | NUR ---
unhooking own IV pt has unhooked his IV two times this shift and left it running on the floor. This RN asked pt to call if he feels like he needs to be disconnected from the IV.
--- NOTE | 2017-01-04 19:32 | PROG NOTE ---
[address] [address] PROGRESS NOTE PATIENT: MAYE MENDEZ : 1990 MR#: [id number] ADMIT: 12/23/2016 JOB ID: [id number] DATE: 01/04/2017 INPATIENT HEMATOLOGY PROGRESS REPORT: DIAGNOSES: 1. Sickle cell disease. 2. Vaso-occlusive crisis affecting right-sided toes, resolved. 3. Chronic opioid dependence. 4. Streptococcal bacteremia with sepsis syndrome. SUBJECTIVE: He is unhappy that Dilaudid has been discontinued. He is currently on oxycodone 20 mg every 6 hours p.r.n., but this is less than his home regimen of 30 mg every 4 hours p.r.n. His fever has resolved. The pain in his right-sided toes has resolved and is only intermittently present. OBJECTIVE: Appears comfortable. Blood pressure 137/92, heart rate 100, temperature 36.7, O2 saturation 97% on room air. LABORATORY DATA: WBC count 13,400, hemoglobin 8.5, bilirubin 2.1. CT scan is negative for abscess but shows bibasilar areas of subpleural consolidation and trace right pleural effusion. This could be acute chest syndrome versus pneumonia, but clinically it is compatible with pneumonia given absence of chest pain. There is marked atrophy of the spleen, as expected from sickle cell disease. Blood cultures drawn yesterday are positive for gram-positive cocci, probable strep, in four of four bottles. IMPRESSION AND RECOMMENDATIONS: 1. Chronic opioid dependence. This patient needs to be at least on his home regimen of oxycodone 30 mg every 4-6 hours p.r.n. Alternatively we can leave oxycodone at the current dose and just reorder hydromorphone while he is admitted. Upon discharge, he will need a temporary supply of oxycodone 30 mg every 4-6 hours p.r.n. until he sees Dr. Lopez in the office. This patient does not have a current provider and will need to get his supply of oxycodone, otherwise will be back and forth to hospital with opioid withdrawal. 2. He is currently hemolyzing based on drop in hemoglobin and elevated bilirubin. Transfuse 1 unit packed red blood cell transfusion. 3. Streptococcal bacteremia. Zosyn has been started. He will need 10-14 days of antibiotic therapy, but I think after 2-3 days of IV he can be discharged on an oral regimen. It would be good to ask ID if penicillin prophylaxis is indicated for this patient with functional asplenia and streptococcal bacteremia, although his compliance is probably poor.
[2017-01-04] MEDS: HYDROmorphone 1 mg/mL Inj IVPUSH PRN (21:19)
[2017-01-04] MEDS ORDERED: 0.9% Sodium Chloride 250 ML ONE (21:34)
--- NOTE | 2017-01-05 00:01 | NUR ---
IV Fluids D/C'd by patient and left running on floor Found IV disconnected and running on the floor at shift change. Patient denies doing this. Educated on importance of IV Fluids during sepsis and B.C. positive conditions. Patient agreed to not disconnect again.
[2017-01-05 00:06] VITALS: BP 112/69; PULSE 94; RESP 20; O2SAT 96
--- NOTE | 2017-01-05 00:06 | NUR ---
PICC Clave residue After examining Clave to reconnect IV Fluids, there appeared to be a yellow residue internal to Clave. The patient denies accessing the Clave for any reason. Removed Clave, scrubbed the line, replaced with a new Clave.
[2017-01-05] MEDS: Piper-Tazo 3.375 Gm/50 mL D5W Minibag Plus - Q8H over 4 hrs IV SCH ×6 (00:33→16:30)
[2017-01-05] MEDS: 0.9% Sodium Chloride 1,000 ML IV SCH ×3 (02:06→17:45)
[2017-01-05 04:37] VITALS: BP 122/78; PULSE 82; RESP 20; O2SAT 95
[2017-01-05] MEDS: HYDROmorphone 1 mg/mL Inj IVPUSH PRN (04:40)
[2017-01-05 05:23] VITALS: PULSE 83
--- NOTE | 2017-01-05 05:27 | NUR ---
PICC Line Pressure / IVF The PICC line pressure indication from both IV pumps I have tried show elevated pressures. Repositioned several times and verified max pressure on IV pump set to 9 already. Tried each lumen with same results. Currently IVF running at 10cc/hour not 100cc/hour. Left message with IV Therapy to take a look in AM.
[2017-01-05 05:31] LABS: BASOPHILS % (AUTO) 0.6 % (0-3); EOSINOPHILS % (AUTO) 13.4 % (0-5); Mean Corpuscular Hemoglobin 27.4 pg (27.0-35.0); Mean Corpuscular Volume 77.7 fL (81-100); NEUTROPHILS % (AUTO) 47.2 % (40-74); Platelet Count 391 bil/L (150-400)
[2017-01-05 05:53] LABS: Magnesium 1.8 mg/dL (1.6-2.6)
[2017-01-05] MEDS: Pantoprazole 40 mg ER24 Tablet PO SCH (07:27)
[2017-01-05 08:00] VITALS: PULSE 81
[2017-01-05] MEDS: Bacitracin Zinc 15 Gm Ointment TOPICAL SCH (08:45)
[2017-01-05 09:31] VITALS: BP 118/76; PULSE 90; RESP 20; O2SAT 97
--- NOTE | 2017-01-05 10:24 | NUR ---
Palliative Agricultural Commodities Inspector Note8:00AM This machine sign writer spoke with Dr. Flores to confirm that Palliative Care services will NOT manage pt.'s pain medications after he discharges from [facility]. Dr. Flores noted that he is working to transition pt. to oral pain medications but that pt.'s active drug use will make this difficult. [facility] to [facility] when he discharges from [facility] as he has an active warrant for his arrest. [facility] Case Management has referred pt. to CD treatment and to the suboxone clinic. MICHAEL Lewis, KAT. Palliative Agricultural Commodities Inspector
--- NOTE | 2017-01-05 10:46 | NUR ---
removed IV pt has removed his IV again and antibiotics running on the floor. This is the third time in two shifts for this RN to ask patient to call and not remove his own IV.
--- NOTE | 2017-01-05 10:47 | NUR ---
pt using computer pt is up using hospital computer again, he is reminded not to use the computer and the computer is locked.
[2017-01-05] MEDS ORDERED: Dalbavancin Inj 1,500 MG in Dextrose 5% 500 ML IV ONE (14:30)
--- NOTE | 2017-01-05 14:37 | PROG NOTE ---
[address] [address] PROGRESS NOTE PATIENT: MAYE MENDEZ : 1990 MR#: [id number] ADMIT: 12/23/2016 JOB ID: [id number] DATE: 01/05/2017 INFECTIOUS DISEASE FOLLOW UP NOTE: REASON FOR FOLLOW UP: Sickle cell crisis with involvement of chest wall bilaterally as well as toes on right foot. INTERVAL HISTORY: Recall that this patient had been moving towards discharge and feeling quite well until January 03 when he spiked an unexplained fever. At that time blood cultures were obtained and we are still waiting for the final results but in speaking to the micro lab, it appears that there are multiple colony variants of what appear to be strep viridans. One species of strep viridans is in 3/4 positive blood culture bottles and the other bottles have a variety of other as of yet unidentified but apparently strep viridans organisms. 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 Recall that prior to this time we had all negative blood cultures and the patient was steadily improving. Today, the patient tells me he is feeling fine. He has no fevers or chills and he has not had any for a couple of days. The chest wall pain he had bilaterally has resolved. No shortness of breath, nausea, vomiting or diarrhea. His right toe pain, and that involves all five toes, is gradually improving. Recall that both Podiatry and Hematology/Oncology as well as myself felt that the right toe pain in all five toes was due to some vasoocclusive phenomena related to sickle cell rather than an infection. Physical examination reveals an afebrile gentleman, temperature 36.8, pulse 90, respiratory rate 20, blood pressure 118/76, saturating well on room air. Lying comfortably flat in his bed. Oral cavity negative. Lungs clear. No chest wall tenderness. Abdomen soft and nontender. The toes are markedly less tender than they were before on the right foot which is minimal tenderness to deep palpation. His PICC line appears benign. Of great interest is the fact I spoke to the nurse today at length and he states that the patient has a habit of unscrewing his PICC line if he wants to go to the bathroom and will unhook the infusions which are hydrating solutions and other solutions running into the PICC and will simply go to the bathroom and come back in a very nonsterile fashion and manipulate the PICC. It does not sound as if he is manipulating the PICC to inject drugs, though he does have a history of injection drug use, but rather that he is just manipulating it to facilitate getting up and around the room or going to the bathroom or other activity. LABORATORIES: Include a white count which has finally normalized completely today at 8800. His platelet count is 391,000. His creatinine is 0.73. His bilirubin 1.8 which is actually better than yesterday. His recent LFTs are completely normal. Micro studies include multiple negative blood cultures. In fact 16 negative blood culture bottles during his first week here in the hospital and then on the suddenly four positive bottles with many variants of strep viridans. IMAGING: This CT scan that was done on the to look for sources of infection found some trace right pleural effusion and did raise the question of acute chest syndrome which, of course, we have always felt the patient had some degree of but it seems to have completely resolved as he is doing very well now. The fevers that developed on January 03 and were associated with a strep viridans bacteremia would seem to have come from his PICC line. I suspect that in some way the manipulation of his PICC line led to this high-grade mixed strep viridans bacteremia. The patient almost immediately became nontoxic after these fevers and an extensive evaluation including CT scan has found no focal source of infection or abscess. RECOMMENDATION: 1. I would give the patient a single dose of dalbavancin 1.5 g x1 through the PICC line. 2. Following the dalbavancin, I would pull the PICC line unless there is some compelling reason to keep it. 3. The patient could be discharged at any time. 4. Note that the patient will be going from here to retirement where he is expected to serve a month's sentence. 5. Should he have significant fevers or other untoward events, we will need to perform a more extensive evaluation but I think at this time, the acute sickle cell crisis and vaso-occlusive phenomena in the toes of the right foot which brought him into the hospital should be considered resolved, and this transient polymicrobial strep viridans bacteremia should be considered secondary to a localized line infection and we can treat that with dalbavancin in a single dose.
[2017-01-05] MEDS ORDERED: OXYC20TA4 PO (15:28)
--- NOTE | 2017-01-05 15:41 | PCM.DIMED ---
Discharge Instructions Date of Service Jan 05, 2017 Dates of Hospitalization Dec 23, 2016 at 00:43 Discharge Diagnosis Discharge Diagnosis # Acute sickle cell pain episode, present on admission. Now improving/resolving on discharge. # Sickle cell acute chest syndrome, with previous fever and pulmonary infiltrates. poa. resolved # Right foot pain. Present on admission. Most likely secondary to vaso- occlusive syndrome; evaluated for Possible bone infection/osteomyelitis by podiatry however this was essential ruled out. # Persistent fevers, present on admission; Resolved on discharge. Pt found to have bacteremia, treated with IV antibiotics for complete course as per recommendation of our ID physician, Dr Oneal. # Chronic hepatitis C, present on admission.; No interventions conducted during hospitalization. # Chronic anemia secondary to sickle cell disease, present on admission; stable through hospital stay, improved with resolution of sickle cell crisis. # History of tobacco, methamphetamine, heroin, and cocaine use. ; Active on admission, supportive therapy/treatment encouraged on discharge. # Chronic 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; no Acute interventions conducted during hospitalization. Diet No restrictions Activity No restrictions Call your provider Fever or Chills Patient Instructions Follow-up Provider: Corin Parikh DO Follow-up with PCP in: 2 weeks Arnoldo Flores DO Jan 05, 2017 15:41
--- NOTE | 2017-01-05 15:52 | PCM.DC.MED ---
Discharge Summary Date of Service Jan 05, 2017 Dates of Hospitalization Date of Hospital Admission Dec 23, 2016 at 00:43 Date of Discharge: Jan 05, 2017 Providers: Admitting Physician: Santa Zarate DO Primary Care Physician: Baldev Bragg DO Attending Physician: Santa Zarate DO Diagnosis at Time of Discharge Diagnosis at Time of Discharge # Acute sickle cell pain episode, present on admission. Now improving/resolving on discharge. # Sickle cell acute chest syndrome, with previous fever and pulmonary infiltrates. poa. resolved # Right foot pain. Present on admission. Most likely secondary to vaso- occlusive syndrome; evaluated for Possible bone infection/osteomyelitis by podiatry however this was essential ruled out. # Persistent fevers, present on admission; Resolved on discharge. Pt found to have bacteremia, treated with IV antibiotics for complete course as per recommendation of our ID physician, Dr Oneal. # Chronic hepatitis C, present on admission.; No interventions conducted during hospitalization. # Chronic anemia secondary to sickle cell disease, present on admission; stable through hospital stay, improved with resolution of sickle cell crisis. # History of tobacco, methamphetamine, heroin, and cocaine use. ; Active on admission, supportive therapy/treatment encouraged on discharge. # Chronic 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; no Acute interventions conducted during hospitalization. Consultations Infectious disease; Dr Oneal Podiatry; Dr Urbano Hem/Onco: Dr Strickland. Procedures XRay, CTs & MRIs Chest x-ray: Awaiting formal read by radiology. Patient appears to have had some infiltrate in the right base on prior exam. Today, patient appears more rotated in portable film and could be cause of apparent increase in the appearance of this infiltrate. Uncertain if this is the case but would like to plan for short- interval repeat 2-view chest. ECG 12 Lead Rate 117 QTc [address] elevations - do not appear to be changed from prior exam. Could represent early repolarization pattern. Cardiac Echo Impression Echocardiogram Report Name: MAYE MENDEZ JStudy Date: 12/26/2016 Height: 71 in Hospital Exam Location: [facility] Weight: 174 lb Gender: Male BSA: 2.0 m2 : 1990 Age: 26 yrs BP: 111/65 mmHg Reason For Study: FEVER Ordering Physician: Performed By: Roberto Delmer Referring Physician: Moreno BRAGG Interpretation Summary The left ventricle is normal in size. Left ventricular systolic function is normal without focal wall motion abnormalities. The ejection fraction is estimated to be 60-65%. The right ventricle is normal in size and function. Pulmonary artery pressures cannot be estimated because of the lack of a measurable TR jet velocity. There is mild biatrial enlargement. There is no significant valvular heart disease. The aortic root is normal size. Compared to the prior echo report on 09/05/2016, there is no significant change. Brief History As per HPI by Dr Mason, "Patient is a 26 year old male with a history of sickle cell anemia and polysubstance abuse that is well known at [facility]. He presented to [facility] on 12/22/16 with right foot pain. He reports that he has had this since his last admission on 12/03/16-12/10/16. It has been so painful that he cannot wear a shoe. He denies bleeding or purulent material. He believes it may have been somewhat numb but never felt cold and mostly just feels painful. The skin on the toes has appeared thickened and as though it is peeling. He does not feel as though it is particularly swollen. While his right foot is his biggest concern the patient also endorses a more generalized pain sensation that seems to "bounce around" his joints. He states that this is similar to his previous sickle cell crises. He is having fever but no chills. He denies nausea, vomiting, shortness of breath, dysuria, hematuria, cough, chest pain, sore throat. He has been having decreased appetite. While he currently does not admit to recent drug use, in the past his sickle cell crises have been triggered by methamphetamine use. U-tox is pending in the ED. In the ED the patient was afebrile with a heart rate of 134, respiratory rate of 16, blood pressure of 114/73, and O2 saturation of 98% on room air. Labs were remarkable for WBC 10.5, Hgb 10.3, platelets 493, bilirubin 1.8, AST 110, ALT 132. IV fluids and antibiotics started in ED. Patient to be admitted for management of sickle cell crisis and monitored for any complications." Hospital Course 26 year old male with a history of sickle cell anemia and polysubstance abuse presented to [facility] on 12/22/16 with right foot pain. # Acute sickle cell pain episode, present on admission.: Patient managed with mainly supportive measures, pain control initially with POLL CLERK pump and maintained IV opiate therapy and finally the oral opiate therapy prior to discharge. Given patient's expectant presentation to care home following discharge given active warrant, he is provided only 3 additional oxycodone to act as a taper following likely discontinuation which will be needed if he is care home for the anticipated next 30 days. Nonetheless given his duration of therapy for almost 2 weeks and all lab studies supporting the resolution of his acute crisis, pain symptoms should be rapidly improving especially with good oral hydration. # Sickle cell acute chest syndrome, with previous fever and pulmonary infiltrates. poa. resolved; patient stable on room air at time of discharge no respiratory distress noted. # Right foot pain. Present on admission. Most likely secondary to vaso- occlusive syndrome; this condition was considered extensively during hospitalization imaging studies including x-rays, and subsequent MRI did not demonstrate convincing evidence of osteomyelitis. Consult by both veterinary radiologist and infectious disease confirmed that the most likely cause of patient's severe foot pain and abnormality noted on exam was a vaso-occlusive crisis rather than any infective cause, this appeared to be further supported by negative blood cultures through the early part of hospitalization with foot pain was worse. Condition greatly improved though not entirely resolved time of discharge. No further interventions were indicated. # Persistent fevers, present on admission,; resolved the time of discharge though blood cultures which were repeated following repeated spike 3 days prior did demonstrate bacteremia . This was considered by Dr. Oneal infectious disease specialist to manage appropriately with IV antibiotics through hospitalization and finally a one-time dose of Dalbavancin at time of discharge which should complete course of antibiotic therapy appropriate for bacteremia which in his case was likely secondary to entry from PICC line . PICC line was of course removed prior to hospital discharge which sugar source of bacteremia . He was afebrile for greater than 24 hours following hospitalization and currently stable without any evidence of sepsis . m - Viral PCR negative - 2-D echo relatively unchanged from previous echo no acute valvular processes noted. . # Chronic hepatitis C, present on admission. -Currently Stable # Chronic anemia secondary to sickle cell disease, present on admission. - Hemoglobin and hematocrit currently stable through hospitalization # History of tobacco, methamphetamine, heroin, and cocaine use. -Social work following ; weaning of patient's pain medications was very complicated by comorbid substance dependency. It was unclear to what degree patient's need for high doses of opiates related to his active IV heroin use versus genuine pain secondary to sickling crisis, patient was weaned very cautiously as a result however given this is an acute on chronic syndrome, and given patient struggles with substances in outpatient setting, the goal nonetheless remained a complete wean prior to discharge especially considering his likely need to be in care home for next 30 days. Given patient was still experiencing significant degree of pain on discharge, was provided 3 additional oxycodone to act as a final taper, to prevent profound withdrawal symptoms. He was strongly encouraged to seek behavioral and medical therapy for this highly addictive polysubstance dependency following his probationary period in care home. # Chronic 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 - Presume stable. Exam Vital Signs (Last) Date Time Temp Pulse Resp B/P Pulse Ox O2 Delivery O2 Flow Rate FiO2 01/05/17 09:31 36.8 90 20 118/76 97 Room Air 01/03/17 08:41 1.50 Exam Patient is lying in hospital bed sleepy but not in any acute distress. Breathing comfortably on room air Heart was regular rate and rhythm with clear lung shrestha Extremities demonstrating no edema, toes maintain mild tenderness but no overt ulceration or active infection was observed. Test 12/22/16 21:35 12/23/16 10:50 12/23/16 13:00 12/26/16 03:00 Reticulocyte Count,Calculated 2.5% (0.6-2.6) Hold Purple Top Tube Received (Received) Hold Blue Top Tube Received (Received) Lactate Dehydrogenase 274U/L (100-190) Lipase 14U/L (13-60) Hold Red Top Tube Received (Received) Hold Howard Top Tube Received (Received) Lactic Acid Level 1.1mmol/L (0.4-2.0) Phosphorus Level 2.7mg/dL (2.5-4.9) Urine Color Yellow (YELLOW) Urine Appearance Clear (CLEAR,HAZY) Urine pH 7.0 (5.0-8.0) Urine Specific [place] 1.009 (1.003-1.035) Urine Protein Negativemg/dL (NEG,TRACE) Urine Glucose (UA) Negativemg/dL (NEGATIVE) Urine Ketones Negativemg/dL (NEGATIVE) Urine Occult Blood Negative (NEGATIVE) Urine Nitrite Negative (NEGATIVE) Urine Bilirubin Negative (NEGATIVE) Urine Urobilinogen Normalmg/dL (NORMAL) Urine Leukocyte Esterase Negative (NEGATIVE) Urine RBC 0-2/hpf (0-2) Urine WBC 0-5/hpf (0-5) Urine Epithelial Cells None/hpf (NONE-MOD) Urine Crystals None seen (NONE SEEN) Urine Bacteria None/hpf (NONE-FEW) Urine Hyaline Casts None/lpf (NONE) Urine Granular Casts None seen (NONE SEEN) Urine Waxy Casts None seen (NONE SEEN) Urine Red Blood Cell Casts None seen (NONE SEEN) Urine White Blood Cell Casts None seen (NONE SEEN) Urine Mucus None seen (None Seen) Urine Trichomonas None seen (NONE SEEN) Urine Yeast None (NONE SEEN) Urinalysis Comment None Urine Culture Reflexed Not indicated Hold Hernandez Top Tube Received (Received) Test 12/28/16 17:00 12/29/16 07:30 12/30/16 09:32 01/02/17 09:00 Urine Opiates Screen Negative Urine Methadone Screen Negative Urine Barbiturates Screen Negative Urine Amphetamines Screen Negative Urine Benzodiazepines Screen Negative Urine Cocaine Metabolite Screen Negative Urine Cannabinoids Screen Negative Procalcitonin 0.13ng/mL (0.00-0.08) Uric Acid 5.4mg/dL (2.6-7.2) Erythrocyte Sedimentation Rate 34mm/hr (0-15) C-Reactive Protein 3.3mg/dL (0.0-0.5) Test 01/03/17 05:00 01/05/17 05:00 Hemoglobin A1c 4.5% (4.8-5.6) White Blood Count 8.8th/mm3 (3.8-10.1) Red Blood Count 3.36mil/mm3 (4.40-5.80) Hemoglobin 9.2g/dL (13.8-17.2) Hematocrit 26.1% (41.0-50.0) Mean Corpuscular Volume 77.7fL (81-100) Mean Corpuscular Hemoglobin 27.4pg (27.0-35.0) Mean Corpuscular Hemoglobin Concent 35.2% (32.0-37.0) Red Cell Distribution Width 19.4% (12.3-15.4) Platelet Count 391bil/L (150-400) Neutrophils (%) (Auto) 47.2% (40-74) Lymphocytes (%) (Auto) 28.5% (14-46) Monocytes (%) (Auto) 10.0% (4-12) Eosinophils (%) (Auto) 13.4% (0-5) Basophils (%) (Auto) 0.6% (0-3) Sodium Level 139mEq/L (134-144) Potassium Level 4.6mEq/L (3.5-5.2) Chloride Level 101mEq/L (97-108) Carbon Dioxide Level 26mmol/L (18-29) Blood Urea Nitrogen 8mg/dL (6-20) Creatinine 0.73mg/dL (0.76-1.27) Estimat Glomerular Filtration Rate 138mL/min (>59) Glucose Level 165mg/dL (60-99) Calcium Level 8.7mg/dL (8.5-10.1) Magnesium Level 1.8mg/dL (1.6-2.6) Total Bilirubin 1.8mg/dL (0.0-1.2) Aspartate Amino Transf (AST/SGOT) 30U/L (0-50) Alanine Aminotransferase (ALT/SGPT) 27U/L (0-44) Alkaline Phosphatase 113U/L (25-150) Total Protein 6.9g/dL (6.4-8.4) Albumin 3.3g/dL (3.4-5.0) Microbiology Results Blood cultures are all negative. Influenza screen was negative, and viral PCR nasopharyngeal was negative. Discharge Medications Discharge Medications Folic Acid (Folic Acid) 1 Mg Tablet 1 MG PO DAILY Prescribed by: BALDEV BRAGG DO Hydroxyurea (Hydroxyurea) 500 Mg Capsule 500 MG PO BID (Reported) Mupirocin (Mupirocin Ointment) 22 Gm Oint...g. 1 APPLIC NASAL BID Prescribed by: BALDEV BRAGG DO As needed Ibuprofen (Ibuprofen) 600 Mg Tablet 600 MG PO q6 hours PRN PRN For Pain ( Reported) oxyCODONE (oxyCODONE) 20 Mg Tablet 20 MG PO Q6H PRN PRN For Pain Prescribed by: JAN ADAIR DO Followup Plan Discharge Diet: No restrictions Discharge Activity: No restrictions Follow-up Provider: Baldev Bragg DO Follow-up with PCP in: 2 weeks Time spent 45 minutes copies to: Baldev Bragg Benjamin P DO Jan 05, 2017 15:51
--- NOTE | 2017-01-05 16:09 | NUR ---
Social Work: Discharge Data: Pt is on day 13 of hospitalization. EMR reviewed, d/c orders are in. CRADLE SLIDE MAKER met with pt to discuss d/c. Pt states he does not have a ride home. Pt requested a ride paid for by insurance, pt did not come to ER by ambulance and therefor [facility] does not cover this. [employer] SLIDE MAKER asked if pt has any resources to get him home and he states his mother is working and he has called everyone else. Pt states he does not have money to pay for a cab. [employer] SLIDE MAKER offered a bus ticket for pt to get home with, pt accepted this. CR[employer]LE SLIDE MAKER inquired about pt's intent to turn himself in, he states he plans to do that tomorrow. No further d/c planning needs at this time. Assessment: Pt who is independent at baseline. Plan: Pt will d/c home via bus with bus ticket given by [employer] SLIDE [employer]KER. No further d/c planning needs at this time. MICHAEL Carmona
--- NOTE | 2017-01-05 16:23 | NUR ---
Checked patient chart and patient came in on own through ER therefore is unable to use his [employer] transportation benefit. Updated REFRIGERATION SUPERVISOR
[2017-01-05] MEDS ORDERED: MELO-259 PO (17:18)
[2017-01-05] MEDS ORDERED: OXYC5TAB72 PO (17:19)
--- NOTE | 2017-01-05 17:39 | NUR ---
discharge paperwork reviewed, RXs given, pt denies current pain/distress. belongings bagged and bus pass given. pt waiting in room for ride to return home before being incarcerated.
== END 2017-01-05 18:41 | disposition home or self-care (01) | DRG 662 ==
LOC: SED 20:31 → PCC 12-23 00:43 → UNDODISIN 12-27 19:00 → MPC 01-01 20:33
PROVIDERS: ADMIT Internal Medicine; ATTEND Internal Medicine
DX: D57.00 Hb-SS disease with crisis, unspecified (principal); F11.20 Opioid dependence, uncomplicated; R16.1 Splenomegaly, not elsewhere classified; M79.671 Pain in right foot; R50.81 Fever presenting with conditions classified elsewhere; F17.210 Nicotine dependence, cigarettes, uncomplicated; B18.2 Chronic viral hepatitis C; D57.01 Hb-SS disease with acute chest syndrome; B95.4 Other streptococcus as the cause of diseases classified elsewhere

== ENCOUNTER 2017-05-06 12:11 | Emergency (ER) | payer MEDICAID, OTHER ==
[~2017-05-06] VITALS: Ht 180.3 cm; Wt 72.7 kg
[~2017-05-06 12:11] MED LIST changes: +MELO-259 PO; -OXYC20TA4 PO; +OXYC5TAB72 PO
[2017-05-06 12:13] VITALS: BP 116/70; PULSE 91; RESP 16; O2SAT 100
--- NOTE | 2017-05-06 12:28 | ED.REPORT ---
HPI-General Illness Date of Service May 06, 2017 ED Provider: Arturo Klein DO The pt is a 26 y/o male w/ a hx of sickle cell anemia, depression, and ADHD presenting to the ED complaining of nausea onset yesterday. The nausea is increased when he turns his head either way, and Zofran has provided no relief. The pt has also reports vomiting, vertigo. He describes being 120 days clean of heroine but used 2 days ago which initially caused him to feel nauseas and vomit. He describes these symptoms not similar to any withdrawal symptoms. He denies any pain. Nursing Notes Stated Complaint: ABDOMINAL PAIN/DIZZY Chief Complaint: General Complaint Nursing Notes Reviewed: Yes Allergies: Coded Allergies: No Known Allergies (Unverified , 05/06/17) Scheduled Folic Acid (Folic Acid) 1 Mg Tablet 1 MG PO DAILY Hydroxyurea (Hydroxyurea) 500 Mg Capsule 500 MG PO BID Meloxicam (Meloxicam) 7.5 Mg Tablet 7.5 MG PO BID Mupirocin (Mupirocin Ointment) 22 Gm Oint...g. 1 APPLIC NASAL BID Scheduled PRN Ibuprofen (Ibuprofen) 600 Mg Tablet 600 MG PO q6 hours PRN PRN For Pain Meclizine (Bonine) 25 Mg Tab.chew 25 MG PO TID PRN PRN For Dizziness oxyCODONE (oxyCODONE) 5 Mg Tablet 20 MG PO Q4H PRN PRN For Severe Pain General Time Seen by MD: 12:25 Chief Complaint Other (Nausea) Hx Obtained From: Patient Arrived By: Walk-in Sudden in Onset?: Yes Onset Occurred: Yesterday Symptom Duration: Since onset Recent Healthcare: Recent doctor visit, Recent hospitalization Similar Sx Previous: No Past Medical History Past Medical History Notes: PCP: Corin Parikh Main provider for sickle cell at [facility] last seen last month Past Medical History Sickle cell anemia Chronic lower back pain and myalgia Depression ADHD Past Surgical History Fourth digit of 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 1 year ago 2014 Family History non-contributory Smoking History Current Every Day Smoker, Never Smoker Social History Alcohol Use: Denies alcohol use Drug Use: IV drugs, Meth, THC Ambulatory Status Independent Review of Systems Full Review of Systems Constitutional: Denies: Chills, Fever GI: Reports: Nausea, Vomiting Neurologic: Reports: Dizziness, Headache Physical Exam Vital Signs Vital Signs Date Time Temp Pulse Resp B/P Pulse Ox O2 Delivery O2 Flow Rate FiO2 05/06/17 14:43 36.5 60 16 122/70 100 Room Air 05/06/17 12:13 36.5 91 16 116/70 100 Room Air Initial VS: Reviewed General/Constitutional: Awake, Alert Head / Eyes: Atraumatic, Normocephalic ENT: Atraumatic, Airway patent Neck: Atraumatic, Supple, Full range of motion Respiratory / Chest: Atraumatic, Breath sounds NL, Breath sounds = bilat, No respiratory distress, No rales, No rhonchi, No wheezing Cardiovascular: Heart rate NL, Regular rhythm, Heart sounds NL Abdomen: Atraumatic, Soft, Non-tender Back: Atraumatic, Full range of motion Skin: Atraumatic, Color NL, No rash, Warm, Dry Neurologic: Oriented X3, Speech NL, No sensory deficits, CN II - XII intact, Cerebellar NL Able to balance on one foot symmetrically and bilaterally Has difficulty w/ tandem gait Reproducible dizziness w/ head motion from side to side Interpretation & Diagnostics MRI BRAIN WITHOUT CONTRAST ([id number]) IMPRESSION: No acute intracranial abnormality. No recent infarct. Dictated by: Jessica Diallo M.D. on 05/06/2017 at 13:31 Approved by: Jessica Diallo M.D. on 05/06/2017 at 13:33 Lab Results Interpretation Result Diagram: 05/06/17 1316 05/06/17 1316 Test 05/06/17 13:16 05/06/17 13:25 White Blood Count 7.4th/mm3 (3.8-10.1) Red Blood Count 4.72mil/mm3 (4.40-5.80) Hemoglobin 13.3g/dL (13.8-17.2) Hematocrit 37.0% (41.0-50.0) Mean Corpuscular Volume 78.4fL (81-100) Mean Corpuscular Hemoglobin 28.2pg (27.0-35.0) Mean Corpuscular Hemoglobin Concent 35.9% (32.0-37.0) Red Cell Distribution Width 14.1% (12.3-15.4) Platelet Count 357bil/L (150-400) Neutrophils (%) (Auto) 58.8% (40-74) Lymphocytes (%) (Auto) 23.5% (14-46) Monocytes (%) (Auto) 11.4% (4-12) Eosinophils (%) (Auto) 5.4% (0-5) Basophils (%) (Auto) 0.8% (0-3) Reticulocyte Count,Calculated 5.1% (0.6-2.6) Sodium Level 139mEq/L (134-144) Potassium Level 4.4mEq/L (3.5-5.2) Chloride Level 101mEq/L (97-108) Carbon Dioxide Level 27mmol/L (18-29) Blood Urea Nitrogen 10mg/dL (6-20) Creatinine 0.78mg/dL (0.76-1.27) Estimat Glomerular Filtration Rate 128mL/min (>59) Glucose Level 104mg/dL (60-99) Calcium Level 9.9mg/dL (8.5-10.1) Total Bilirubin 3.3mg/dL (0.0-1.2) Aspartate Amino Transf (AST/SGOT) 110U/L (0-50) Alanine Aminotransferase (ALT/SGPT) 166U/L (0-44) Alkaline Phosphatase 92U/L (25-150) Total Protein 7.4g/dL (6.4-8.4) Albumin 4.5g/dL (3.4-5.0) Alcohols < 10mg/dL (0-10) Urine Color Yellow (YELLOW) Urine Appearance Clear (CLEAR,HAZY) Urine pH 7.0 (5.0-8.0) Urine Specific [place] 1.010 (1.003-1.035) Urine Protein Negativemg/dL (NEG,TRACE) Urine Glucose (UA) Negativemg/dL (NEGATIVE) Urine Ketones Negativemg/dL (NEGATIVE) Urine Occult Blood Negative (NEGATIVE) Urine Nitrite Negative (NEGATIVE) Urine Bilirubin Negative (NEGATIVE) Urine Urobilinogen 4.0mg/dL (NORMAL) Urine Leukocyte Esterase Trace (NEGATIVE) Urine RBC 0-2/hpf (0-2) Urine WBC 0-5/hpf (0-5) Urine Epithelial Cells Few/hpf (NONE-MOD) Urine Crystals None seen (NONE SEEN) Urine Bacteria Few/hpf (NONE-FEW) Urine Hyaline Casts None/lpf (NONE) Urine Granular Casts None seen (NONE SEEN) Urine Waxy Casts None seen (NONE SEEN) Urine Red Blood Cell Casts None seen (NONE SEEN) Urine White Blood Cell Casts None seen (NONE SEEN) Urine Mucus None seen (None Seen) Urine Trichomonas None seen (NONE SEEN) Urine Yeast None (NONE SEEN) Urinalysis Comment None Urine Culture Reflexed Indicated ECG Interpretation ECG Interpretation: Rate 68 Normal sinus rhythm Borderline ST elevation, anterior leads Similar to previous EKG done in 12/22/2016. Time: 12:39 Interpreted by: ED physician CT Head Interpretation IMPRESSION: No acute intracranial process Dictated by: El Meléndez M.D. on 05/06/2017 at 13:05 Approved by: El Meléndez M.D. on 05/06/2017 at 13:05 Study: Head CT no contrast Interpretation / Wet Read by: Interpret - Radiologist Re-Eval/Medical Decision Med Decision/Clinical Course Overall, clinical history and exam sounds like vertigo, however he seems to have difficulty with tandem gait which seems to represent mild ataxia. Given his history of sickle cell disease and noncompliance, a more resource intensive workup was performed. This will include a head CT, basic labs in the noncontrast brain MRI. Patient was treated with both meclizine and Ativan and IV normal saline. MRI of the brain is unremarkable. This is not consistent with sickle cell crisis, PRES syndrome, vaso-occlusive crisis, he does have mild elevation in his liver function tests in the setting of a hepatitis C patient, he has no pain in this area I do not suspect emergent pathology. He will be discharged on meclizine. Return and follow-up precautions given. Source of Hx: Old records Time of Eval: 14:26 Re-Evaluation/Progress Note: Pt rechecked. Pt is still experincing vertigo sensation. No abdominal tenderness on exam. Negative murphys sign. Counseled Regarding: Diagnosis, Lab results, Need for follow-up, When/why to return to ED Discharge & Departure Primary Impression: Vertigo Disposition: Home Discharge Condition All VS Reviewed: Yes Condition: Stable Additional Instructions: Your symptoms are likely due to vertigo. There is no evidence of stroke. Use meclizine as needed for dizziness. Follow-up with your primary care in the next few days for repeat evaluation. Return to the ER as needed for new or progressive neurologic symptoms, high fever, or other concerns. Referrals: Corin Parikh DO (PCP) Gurjit Attestation Portions of this note were transcribed by Jarrod Norman. I, Dr. Klein personally performed the history, physical exam and medical decision-making; I reviewed and confirmed the accuracy of the information in the transcribed note. Signed by : Gurjit Escalante, 05/06/17 and 1305. copies to: Corin Parikh Timothy S DO May 06, 2017 12:28 Jarrod Norman May 06, 2017 12:41
[2017-05-06] MEDS ORDERED: 0.9% Sodium Chloride 1,000 ML IV SCH (12:30)
--- NOTE | 2017-05-06 13:07 | DRSVH ---
PROCEDURE: CT BRAIN WITHOUT CONTRAST ([id number]) INDICATIONS: vertigo, sickle cell disease TECHNIQUE: Noncontrast 4.5 mm thick angled axial sections acquired from the foramen magnum to the vertex, with c oronal reformats. COMPARISON: None. FINDINGS: Image quality: Excellent. CSF spaces: Basal cisterns are patent. No extra-axial fluid collections. Ventricles are normal in size and shape. Brain: No midline shift. No intracranial masses or hemorrhage. Prado-white matter interface is norm al. Skull and face: Calvarium and visualized facial bones are intact, without suspicious lesions. Sinuses: Visualized sinuses and mastoids are clear. IMPRESSION: No acute intracranial process Dictated by: El Meléndez M.D. on 05/06/2017 at 13:05 Approved by: El Meléndez M.D. on 05/06/2017 at 13:05
[2017-05-06 13:19] LABS: BASOPHILS % (AUTO) 0.8 % (0-3); EOSINOPHILS % (AUTO) 5.4 % (0-5); MONOCYTES % (AUTO) 11.4 % (4-12); Mean Corpuscular Hemoglobin 28.2 pg (27.0-35.0); Mean Corpuscular Volume 78.4 fL (81-100); NEUTROPHILS % (AUTO) 58.8 % (40-74); Platelet Count 357 bil/L (150-400)
[2017-05-06 13:45] LABS: APPEARANCE,URINE CLEAR (CLEAR,HAZY); COLOR,URINE YELLOW (YELLOW); OCCULT BLOOD,URINE NEGATIVE (NEGATIVE)
[2017-05-06] MEDS ORDERED: Ondansetron 2 mg/mL 2 mL Inj IVPUSH PRN (14:35)
--- NOTE | 2017-05-06 14:35 | DRSVH ---
PROCEDURE: MRI BRAIN WITHOUT CONTRAST ([id number]) INDICATIONS: vertigo, mild ataxia, h/o sickle cell TECHNIQUE: Noncontrast axial T1 spin echo, axial T2 fast spin echo, sagittal and axial FLAIR, coronal T2 fast sp in echo, axial gradient echo, axial diffusion and ADC through the brain. COMPARISON: None. FINDINGS: Image quality: Partially degraded by motion artifact. CSF Spaces: Basal cisterns are patent. No extra-axial fluid collections. Ventricles are normal in size and shape. Brain: No intracranial masses or hemorrhage. Prado/white matter interface is normal. Brainstem appe ars normal. Diffusion-weighted images demonstrate no acute ischemic insult. No chronic ischemic ins ults. Normal intravascular flow voids are present. Skull and face: Calvarium has normal marrow signal. Orbits appear normal. Sinuses: Sinuses and mastoids are clear. IMPRESSION: No acute intracranial abnormality. No recent infarct. Dictated by: Jessica Diallo M.D. on 05/06/2017 at 13:31 Approved by: Jessica Diallo M.D. on 05/06/2017 at 13:33
[2017-05-06] MEDS ORDERED: MECL-114 PO (14:38)
[2017-05-06 14:43] VITALS: BP 122/70; PULSE 60; RESP 16; O2SAT 100
[2017-05-06 14:53] VITALS: BP 122/70; PULSE 60; RESP 16; O2SAT 100
[2017-05-06 16:14] LABS: Lipase 21 U/L (13-60)
== END 2017-05-06 14:54 | disposition home or self-care (01) ==
LOC: SED 12:11
DX: R42 Dizziness and giddiness (principal); R11.2 Nausea with vomiting, unspecified; F32.9 Major depressive disorder, single episode, unspecified; F90.9 Attention-deficit hyperactivity disorder, unspecified type; M54.5 Low back pain; G89.29 Other chronic pain; F17.200 Nicotine dependence, unspecified, uncomplicated; Z86.2 Personal history of diseases of the blood and blood-forming organs and certain disorders involving the immune mechanism
CPT/HCPCS: 36415; 70450; 70551; 80053; 81000; 83690; 85025; 85045; 87077; 87086; 87088; 87186; 93005; 96361; 96374; 96375; 99285; G0480; J2060; J2405; J7030

== ENCOUNTER 2017-05-07 09:43 | Emergency (ER) | payer OTHER ==
[~2017-05-07] VITALS: Ht 180.3 cm; Wt 80.0 kg
[~2017-05-07 09:43] MED LIST changes: +MECL-114 PO
[2017-05-07 09:53] VITALS: BP 123/82; PULSE 92; RESP 15; O2SAT 100
--- NOTE | 2017-05-07 10:02 | ED.REPORT ---
HPI-General Illness Date of Service May 07, 2017 ED Provider: Wellington Yoon MD The patient is a 26 yo male with history of sickle cell anemia, depression, ADHD , and polysubstance abuse presenting to the ED for atraumatic left leg pain onset today. He reports that this feel like a sickle cell crisis that he has had in the past. The leg pain is in the left thigh and radiates to the knee. It is dull and achy. Pain is worse with walking, but he is able to bear weight. He denies any numbness, tingling, joint pain, or other pain. He reports resolution of the abdominal pain, nausea, and vomiting that he was seen in the ER for yesterday. No other complaint at this time. Nursing Notes Stated Complaint: LEG PAIN Chief Complaint: General Complaint Nursing Notes Reviewed: Yes Allergies: Coded Allergies: No Known Allergies (Unverified , 05/06/17) Scheduled Folic Acid (Folic Acid) 1 Mg Tablet 1 MG PO DAILY Hydroxyurea (Hydroxyurea) 500 Mg Capsule 500 MG PO BID Meloxicam (Meloxicam) 7.5 Mg Tablet 7.5 MG PO BID Mupirocin (Mupirocin Ointment) 22 Gm Oint...g. 1 APPLIC NASAL BID Scheduled PRN Ibuprofen (Ibuprofen) 600 Mg Tablet 600 MG PO q6 hours PRN PRN For Pain Meclizine (Bonine) 25 Mg Tab.chew 25 MG PO TID PRN PRN For Dizziness oxyCODONE (oxyCODONE) 5 Mg Tablet 20 MG PO Q4H PRN PRN For Severe Pain General Time Seen by MD: 09:58 Chief Complaint Other (left leg pain) Hx Obtained From: Patient Arrived By: Walk-in Sudden in Onset?: Yes Onset Occurred: Just prior to arrival Symptom Duration: Since onset Quality: Aching, Dull, Painful Radiation: : Does not radiate Severity: Current: Severe Severity: Maximum: Severe Associated with: Reports: Pain on walking, Weak extremity, Weakness, Denies: Abdominal pain, Inability to bear weight, Joint pain, Numb extremities Pertinent Negative: Pt denies other symptoms Exacerbated by: Moving affected area, Standing up Pertinent Negative: Relieved by nothing Context Related History: Reports Sickle cell disease/trait Recent Healthcare: Recent hospitalization Similar Sx Previous: Yes Past Medical History Past Medical History Notes: PCP: Corin Parikh Main provider for sickle cell at [facility] Past Medical History Sickle cell anemia Chronic lower back pain and myalgia Depression ADHD IV drug abuse Substance abuse - meth, heroin, cocaine Past Surgical History Fourth digit of 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 1 year ago 2014 Family History non-contributory Smoking History Current Every Day Smoker, Never Smoker Social History Alcohol Use: Denies alcohol use Drug Use: IV drugs, Meth, THC Ambulatory Status Independent Review of Systems Full Review of Systems Constitutional: Denies: Chills, Fatigue, Fever Respiratory: Denies: Dyspnea on exertion, Shortness of breath, Wheezing GI: Denies: Abdominal pain, Constipation, Diarrhea, Nausea, Vomiting Musculoskeletal: Reports: Extremity pain, Denies: Extremity swelling, Joint pain, Joint swelling, Lumbar pain, Myalgia , Neck pain Neurologic: Reports: Weakness, Denies: Abnormal movement, Confusion, Numbness Psychiatric: Reports: Depression, Denies: Agitation, Anxiety Complete sys rev & neg: except as marked. Physical Exam Vital Signs Vital Signs Date Time Temp Pulse Resp B/P Pulse Ox O2 Delivery O2 Flow Rate FiO2 05/07/17 14:19 36.8 80 20 118/86 96 Room Air 05/07/17 12:11 36.2 64 20 102/66 100 Room Air 05/07/17 09:53 36.9 92 15 123/82 100 Room Air Initial VS: Reviewed, Vital signs normal General/Constitutional: Well-developed, Well-nourished Head / Eyes: Atraumatic, Normocephalic, PERRL ENT: Mucous membranes moist, Conjunctiva normal, No scleral icterus Neck: Supple, Non-tender, Full range of motion Respiratory: Breath sounds normal, Clear to auscultation, No respiratory distress Cardiovascular: Regular rate & rhythm, Heart sounds normal, Intact distal pulses Abdomen / GI: Soft, Non-tender, No guarding, No rebound, No distention Extremities: Vascular intact, Neuro intact, No swelling, No tenderness Skin: Warm, Dry, No cyanosis Neurologic: Alert, Oriented, Nonfocal General/Constitutional: Awake, Alert, No acute distress, Well appearing, Well developed, Well hydrated Lower Extremity / Pelvis / MS: Atraumatic, Inspection NL, Full range of motion , No swelling, Non-tender, No deformity Left lower extremity: normal exam. No tenderness to palpation. No edema/erythema/warmth. Normal and equal patellar DTR's bilaterally. Interpretation & Diagnostics Lab Results Interpretation Result Diagram: 05/07/17 1115 05/07/17 1115 Test 05/07/17 11:15 White Blood Count 7.9th/mm3 (3.8-10.1) Red Blood Count 4.45mil/mm3 (4.40-5.80) Hemoglobin 12.8g/dL (13.8-17.2) Hematocrit 34.6% (41.0-50.0) Mean Corpuscular Volume 77.8fL (81-100) Mean Corpuscular Hemoglobin 28.8pg (27.0-35.0) Mean Corpuscular Hemoglobin Concent 37.0% (32.0-37.0) Red Cell Distribution Width 14.1% (12.3-15.4) Platelet Count 352bil/L (150-400) Neutrophils (%) (Auto) 56.2% (40-74) Lymphocytes (%) (Auto) 24.6% (14-46) Monocytes (%) (Auto) 12.3% (4-12) Eosinophils (%) (Auto) 5.7% (0-5) Basophils (%) (Auto) 0.8% (0-3) Sodium Level 143mEq/L (134-144) Potassium Level 4.3mEq/L (3.5-5.2) Chloride Level 105mEq/L (97-108) Carbon Dioxide Level 26mmol/L (18-29) Blood Urea Nitrogen 10mg/dL (6-20) Creatinine 0.76mg/dL (0.76-1.27) Estimat Glomerular Filtration Rate 132mL/min (>59) Glucose Level 102mg/dL (60-99) Calcium Level 9.6mg/dL (8.5-10.1) Total Bilirubin 2.7mg/dL (0.0-1.2) Aspartate Amino Transf (AST/SGOT) 108U/L (0-50) Alanine Aminotransferase (ALT/SGPT) 185U/L (0-44) Alkaline Phosphatase 92U/L (25-150) Total Protein 7.1g/dL (6.4-8.4) Albumin 4.2g/dL (3.4-5.0) Re-Eval/Medical Decision Med Decision/Clinical Course 26 yo male with history of sickle cell anemia, depression, ADHD, and polysubstance abuse presenting to the ED for atraumatic left leg pain onset today. He was seen in the ER yesterday for abdominal pain, nausea, and vomiting , which all resolved today. He had no other complaint, but was concerned of sickle cell crisis and demanded to have IVF as well as IV pain med. Nursing staff initially had a hard time establish IV line and oral Percocet was offered. However, patient declined and requested for IV med instead. His pain was reassessed every time IV Dilaudid 0.5mg was given, and he repeatedly reported no improvement. After the 3rd dose of the IV Dilaudid, patient eloped and no discharge planing was discussed. His labs did not show any significant concerns for infection. His behaviors, are therefore, likely drug-seeking, but whether he truly had a sickle cell crisis or not is unclear. Time of Eval: 11:00 Patient Status: Condition unchanged Re-Evaluation/Progress Note: Nursing staff reports inability to get an IV line. Oral Percocet offered, but patient refused and would like IV Dilaudid. Will call IV therapy to have IV line start with IV fluid and IV pain med. Time of Eval: 13:40 Patient Status: Condition unchanged Re-Evaluation/Progress Note: Patient rechecked after a dose of IV Dilaudid 0.5mg. Patient reports no improvement of his pain and states, "it usually takes a few doses for my pain to get better." Pain is 5/10 currently. No tenderness on palpation. Time of Eval: 15:30 Re-Evaluation/Progress Note: Patient eloped after the receiving the 3rd dose of Dilaudid 0.5mg. Counseled Regarding: Diagnosis Discharge & Departure Primary Impression: Leg pain, left Additional Impression: At risk for elopement Disposition: Home Discharge Condition All VS Reviewed: Yes Condition: Stable Referrals: NOPCP (PCP) EDSupervising Provider for APC: Wellington Yoon MD Attestation Portions of this note were transcribed by Rylan Saenz. I, Dr. Yoon personally performed the history, physical exam and medical decision-making; I reviewed and confirmed the accuracy of the information in the transcribed note. Signed by Gurjit Collins, 05/07/172229 Attending Statement I discussed patient with resident and evaluated patient independently and agree with plan as above. In brief, 26 year old male history of sickle cell disease presenting complaining of leg pain. No other symptoms. He believes he is having a sickle crisis. Denies any chest pain dizziness or any other symptoms. He was seen yesterday for dizziness and received an MRI and was discharged. His symptoms have resolved. He was given IV fluids and pain medications and patient eloped. Diagnosis Leg pain. Cannot r/o sickle crisis. Wellington Yoon MD May 07, 2017 10:02 RYLAN SAENZ May 07, 2017 10:09 Joshua Jimenez DO May 07, 2017 11:25
[2017-05-07] MEDS ORDERED: 0.9% Sodium Chloride 1,000 ML IV ONE ×2 (10:56→14:40)
[2017-05-07] MEDS ORDERED: HYDROmorphone 0.5 mg/0.5 mL iSecure Syringe IVPUSH PRN (11:00)
[2017-05-07] MEDS ORDERED: oxyCODONE-Acetamin 10-325 mg Tablet PO ONE (11:15)
[2017-05-07 11:29] LABS: Mean Corpuscular Hemoglobin 28.8 pg (27.0-35.0)
[2017-05-07 11:32] LABS: BASOPHILS % (AUTO) 0.8 % (0-3); EOSINOPHILS % (AUTO) 5.7 % (0-5); MONOCYTES % (AUTO) 12.3 % (4-12); Mean Corpuscular Volume 77.8 fL (81-100); NEUTROPHILS % (AUTO) 56.2 % (40-74); Platelet Count 352 bil/L (150-400)
[2017-05-07 12:11] VITALS: BP 102/66; PULSE 64; RESP 20; O2SAT 100
[2017-05-07] MEDS: HYDROmorphone 0.5 mg/0.5 mL iSecure Syringe IVPUSH PRN ×3 (13:40→15:12)
[2017-05-07 14:19] VITALS: BP 118/86; PULSE 80; RESP 20; O2SAT 96
== END 2017-05-07 15:39 | disposition home or self-care (01) ==
LOC: SED 09:43
DX: M79.652 Pain in left thigh (principal); M25.562 Pain in left knee; F17.200 Nicotine dependence, unspecified, uncomplicated; D57.1 Sickle-cell disease without crisis
CPT/HCPCS: 36415; 80053; 85025; 96361; 96374; 99284; J1170; J7030

== ENCOUNTER 2017-05-23 09:31 | Emergency (ER) | payer OTHER ==
[~2017-05-23] VITALS: Ht 180.3 cm; Wt 65.9 kg
[2017-05-23 09:36] VITALS: BP 126/78; PULSE 104; RESP 16; O2SAT 97
--- NOTE | 2017-05-23 10:08 | ED.REPORT ---
HPI-General Illness Date of Service May 23, 2017 ED Provider: Wellington Yoon MD The patient is a 26 year old female with history of sickle cell anemia, chronic pain, depression, and substance abuse, who presents to the emergency department requesting help with detox. The patient has been using meth regularly. He last used 2 days ago. He also reports using heroin and last used this about 2 days ago as well. The patient is currently homeless and has been sleeping on [address]. He does see an outpatient counselor. He denies any physical complaints at this time. Nursing Notes Stated Complaint: DETOX Chief Complaint: Substance Abuse Nursing Notes Reviewed: Yes Allergies: Coded Allergies: No Known Allergies (Unverified , 05/06/17) Scheduled Folic Acid (Folic Acid) 1 Mg Tablet 1 MG PO DAILY Hydroxyurea (Hydroxyurea) 500 Mg Capsule 500 MG PO BID Meloxicam (Meloxicam) 7.5 Mg Tablet 7.5 MG PO BID Mupirocin (Mupirocin Ointment) 22 Gm Oint...g. 1 APPLIC NASAL BID Scheduled PRN Ibuprofen (Ibuprofen) 600 Mg Tablet 600 MG PO q6 hours PRN PRN For Pain Meclizine (Bonine) 25 Mg Tab.chew 25 MG PO TID PRN PRN For Dizziness oxyCODONE (oxyCODONE) 5 Mg Tablet 20 MG PO Q4H PRN PRN For Severe Pain General Time Seen by MD: 10:02 Chief Complaint Medical clearance (detox) Hx Obtained From: Patient Arrived By: Walk-in Sudden in Onset?: No Onset Occurred: More than a week ago... Symptom Duration: Since onset Severity: Current: No pain currently Severity: Maximum: No pain Recent Healthcare: No recent hospitalization Similar Sx Previous: Yes Past Medical History Past Medical History Notes: PCP: Corin Parikh Main provider for sickle cell at [facility] Past Medical History Sickle cell anemia Chronic lower back pain and myalgia Depression ADHD IV drug abuse Substance abuse - meth, heroin, cocaine Past Surgical History Fourth digit of 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 1 year ago 2014 Family History non-contributory Smoking History Current Every Day Smoker, Never Smoker Social History Alcohol Use: Denies alcohol use Drug Use: IV drugs, Meth, THC Other Social History: Local resident Ambulatory Status Independent Review of Systems Full Review of Systems Constitutional: Denies: Chills, Fever Ears / Nose / Throat: Denies: Sore throat Respiratory: Denies: Non-productive cough Cardiovascular: Denies: Chest pain GI: Denies: Abdominal pain, Diarrhea, Vomiting Skin: Denies Rash Neurologic: Denies: Headache Complete sys rev & neg: except as marked. Physical Exam Vital Signs Vital Signs Date Time Temp Pulse Resp B/P Pulse Ox O2 Delivery O2 Flow Rate FiO2 05/23/17 09:36 36.4 104 16 126/78 97 Initial VS: Reviewed General/Constitutional: Well-developed, Well-nourished Head / Eyes: Atraumatic, Normocephalic, PERRL ENT: Mucous membranes moist, Conjunctiva normal, No scleral icterus Neck: Supple, Non-tender, Full range of motion Respiratory: Breath sounds normal, Clear to auscultation, No respiratory distress Cardiovascular: Regular rate & rhythm, Heart sounds normal, Intact distal pulses Abdomen / GI: Soft, Non-tender, No guarding, No rebound, No distention Extremities: Vascular intact, Neuro intact, No swelling, No tenderness Skin: Warm, Dry, No cyanosis Neurologic: Alert, Oriented, Nonfocal Psychiatric: Mood/affect normal, Behavior normal, Normal thought content Re-Eval/Medical Decision Med Decision/Clinical Course 26-year-old male history of sickle cell disease and IV drug use presenting requesting detox. Patient reports IV drug use with heroin and methamphetamines over the weekend. He is homeless and he is requesting detox. pick and shovel worker consulted but the patient left prior to being evaluated by social work administrator. That he would follow up with his counselor as an outpatient. Clinically he did not appear to be withdrawing. Source of Hx: Old records Time of Eval: 10:40 Re-Evaluation/Progress Note: The patient left the department stating he was going to see his counselor. Discharge & Departure Departure Notes ELOPED Primary Impression: Methamphetamine abuse Additional Impression: Heroin abuse Disposition: AGAINST MEDICAL ADVICE (ELOPED) Discharge Condition All VS Reviewed: Yes Condition: Stable Referrals: NOPCP (PCP) Scribe Attestation Portions of this note were transcribed by Brigid Starr. I, Dr. Yoon personally performed the history, physical exam and medical decision-making; I reviewed and confirmed the accuracy of the information in the transcribed note. Signed by: Gurjit Kemp, 05/23/2017 at 1100. Wellington Yoon MD May 23, 2017 10:07 Brigid Starr May 23, 2017 10:18
[2017-05-24] MEDS ORDERED: BUPR1TAB36 SL (03:08)
== END 2017-05-23 10:42 | disposition left against medical advice (07) ==
LOC: SED 09:31
DX: F15.20 Other stimulant dependence, uncomplicated (principal); D57.1 Sickle-cell disease without crisis; F17.200 Nicotine dependence, unspecified, uncomplicated; Z59.0 Homelessness

== ENCOUNTER 2017-05-23 21:40 | Emergency (ER) | payer OTHER ==
[~2017-05-23] VITALS: Ht 180.3 cm; Wt 75.0 kg
[2017-05-23 21:47] VITALS: BP 116/77; PULSE 90; RESP 16; O2SAT 98
--- NOTE | 2017-05-23 23:24 | ED.REPORT ---
HPI-Overdose/Alcohol Toxicity Date of Service May 23, 2017 ED Provider: Dr. Silva Pt is a 26 y/o male w/ a hx of polysubstance abuse, sickle cell anemia, presenting to the ED with his mother for medical clearance for drug rehab. The patient was sent here by [facility] to be medically cleared for drug withdrawal of heroin and methamphetamine. He c/o hallucinations, paranoia, and fatigue. He last smoked heroin 3 days ago and last used methamphetamine yesterday. He has used IV drugs in the past but not frequency or recently. Pt denies abdominal pain, nausea, vomiting. He has been using heroin for about 5 years and has attempted to stop. The longest time he has been sober was 6 months by "cold turkey" method. He has never taken Suboxone that was prescribed by him. The patient decided to enter rehab today because he simply wanted to be clean. Nursing Notes Stated Complaint: HIGH BLOOD PRESSURE/EVALUATION FOR CRISIS CENTER Chief Complaint: Substance Abuse Nursing Notes Reviewed: Yes Allergies: Coded Allergies: No Known Allergies (Unverified , 05/23/17) Scheduled Buprenorphine/Naloxone 8-2 mg (Buprenorphine/Naloxone 8-2 mg) 1 Each Tab.subl 1 TABLET SL DAILY Folic Acid (Folic Acid) 1 Mg Tablet 1 MG PO DAILY Hydroxyurea (Hydroxyurea) 500 Mg Capsule 500 MG PO BID Meloxicam (Meloxicam) 7.5 Mg Tablet 7.5 MG PO BID Mupirocin (Mupirocin Ointment) 22 Gm Oint...g. 1 APPLIC NASAL BID Scheduled PRN Ibuprofen (Ibuprofen) 600 Mg Tablet 600 MG PO q6 hours PRN PRN For Pain Meclizine (Bonine) 25 Mg Tab.chew 25 MG PO TID PRN PRN For Dizziness oxyCODONE (oxyCODONE) 5 Mg Tablet 20 MG PO Q4H PRN PRN For Severe Pain General Time Seen by Provider: 23:25 Chief Complaint Other (meth/heroin withdrawal) Hx Obtained From: Patient Arrived By: Walk-in Onset Occurred: 3 days ago Symptom Duration: Since onset Severity: Current: No pain currently Severity: Maximum: No pain Similar Sx Previous: Yes Past Medical History Past Medical History Notes: PCP: Corin Parikh Main provider for sickle cell at [facility] Past Medical History Sickle cell anemia Chronic lower back pain and myalgia Depression ADHD IV drug abuse Substance abuse - meth, heroin, cocaine Past Surgical History Fourth digit of 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 1 year ago 2014 Family History non-contributory Smoking History Current Every Day Smoker, Never Smoker Social History Alcohol Use: Denies alcohol use Drug Use: IV drugs, Meth, THC Other Social History: Local resident Ambulatory Status Independent Review of Systems Review of Systems Note: +paranoia Constitutional: Denies: Chills, Fever Respiratory: Denies: Non-productive cough, Shortness of breath Cardiovascular: Denies: Chest pain, Dyspnea on exertion GI: Denies: Abdominal pain, Nausea, Vomiting Psychiatric: Reports: Hallucinations, auditory, Hallucinations, visual, Denies: Agitation Complete sys rev & neg: except as marked. Physical Exam Initial Vital Signs Vital Signs (First) Date Time Temp Pulse Resp B/P Pulse Ox O2 Delivery O2 Flow Rate FiO2 05/23/17 21:47 36.4 90 16 116/77 98 Room Air Initial VS: Reviewed, Vital signs normal Head / Eyes: Atraumatic, Normocephalic, PERRL ENT: Mucous membranes moist, Conjunctiva normal, No scleral icterus Neck: Supple, Full range of motion Extremities: Vascular intact, Neuro intact, No swelling Skin: Warm, Dry, No cyanosis General/Constitutional: Awake, Alert, No acute distress, Cooperative, Not toxic appearing Mildly sedated appearing Clenches jaw intermittently Respiratory / Chest: Breath sounds NL, Breath sounds = bilat, No respiratory distress, No rales, No rhonchi, No wheezing, No retractions, No stridor Cardiovascular: Heart rate NL, Regular rhythm, Heart sounds NL, No gallop, No murmurs, No rubs, Cap refill not delayed Abdomen: Atraumatic, Soft, Non-tender, No guarding, No rebound, No distention, No palpable mass Neurologic: Oriented X3, Speech NL, No motor deficits, Memory NL Psychiatric: Affect NL, Mood NL, Cognitive function NL, Judgment/insight NL Skin: Warm, Dry No injection sites visible No pick-sores No abscess Interpretation & Diagnostics Lab Results Interpretation Test 05/24/17 00:01 Hold Urine Received (Received) Lab Results Interpretation: Urine tox screen positive for: methamphetamine, amphetamine, opiates, THC Breathalyzer: 0 Re-Eval/Medical Decision Med Decision/Clinical Course 6-year-old male who arrives accompanied by his mom. He went to [facility] for treatment for methamphetamine and heroin abuse. They felt he was not appropriate for treatment there. He arrived here with some mild agitation and paranoia. He was given Zyprexa for those symptoms. He was offered Suboxone but declined, reason uncertain. He slept here for a few hours and then upon reevaluation was found to be much improved. Arrangements were made for him to go to detox with a taper prescription for Suboxone. He is encouraged to follow up with [facility]. Re-Evaluation/Progress : Time of Eval: 02:58 Re-Evaluation/Progress Note: Pt rechecked. Asking for food now. No significant withdrawal. Counseled Regarding: Diagnosis, Lab results, Need for follow-up, When/why to return to ED Discharge & Departure Impression: Primary Impression: Amphetamine withdrawal Additional Impression: Heroin withdrawal )( Condition at Discharge: No danger to self, No danger to others, No suicidal ideation, No homicidal ideation, Clear for drug rehab Disposition: Home (To drug rehab) Discharge Condition All VS Reviewed: Yes Condition: Stable Patient Instructions: Methamphetamine Abuse (ED), Opioid Withdrawal (ED) Additional Instructions: Go directly to [facility] for detox. He was given Zyprexa here in the emergency room, but will not need to continue that. I have attached a prescription for Suboxone that you can start later today if and when the opiate withdrawal becomes symptomatic. Suboxone / tab or film, 1 daily for 3 days then a half daily for 4 days, #5 prescription written. Referrals: NOPCP (PCP) Scribe Attestation Portions of this note were transcribed by Rylan Saenz. I, Dr. Silva personally performed the history, physical exam and medical decision-making; I reviewed and confirmed the accuracy of the information in the transcribed note. Signed by Gurjit Collins, 05/23/17 - [id number] Yoav Silva MD May 23, 2017 23:24 RYLAN SAENZ May 23, 2017 23:31
[2017-05-24] MEDS ORDERED: BUPR1TAB36 SL (03:08)
[2017-05-24 04:20] VITALS: BP 104/74; PULSE 87; RESP 20; O2SAT 99
[2017-05-24] MEDS ORDERED: OLANZapine Zydis ODT 5 mg Tablet PO SCH (08:30)
== END 2017-05-24 03:48 | disposition other institution (70) ==
LOC: SED 21:47
DX: F15.23 Other stimulant dependence with withdrawal (principal); F11.23 Opioid dependence with withdrawal; F32.9 Major depressive disorder, single episode, unspecified; F90.9 Attention-deficit hyperactivity disorder, unspecified type; F17.200 Nicotine dependence, unspecified, uncomplicated